=== PATIENT | female | born 1960 | race Caucasian/White ===

== ENCOUNTER → 2019-01-01 | Outpatient (CLI) | payer MEDICARE ==
--- NOTE | 2019-01-01 09:02 | Diagnostic Imaging Report ---
MRI RT UPPER EXT JOINT W/O Technique: Multiplanar, multisequence MR imaging of the right shoulder was performed without contrast. Comparison: None available. Indication: Right shoulder pain with recent fall. Findings: Rotator cuff: No rotator cuff tear. Mild tendinopathy of the supraspinatus is present. No rotator cuff muscle edema or atrophy. Glenoid labrum: There is abnormal linear signal extending within the superior labrum in an anterior to posterior direction suggesting a nondisplaced tear. No associated paralabral cyst. Long head of biceps: Long head of biceps is normally positioned within the bicipital groove. The intracapsular segment is intact. Bones and cartilage: Humeral head is normal in morphology without fracture or focal osseous lesion. No glenohumeral chondromalacia. The acromioclavicular joint is normal in alignment without significant degenerative change. Soft tissues: No glenohumeral joint effusion. No MRI findings to suggest adhesive capsulitis. No fluid or inflammatory like signal within the subacromial/subdeltoid space to indicate bursitis. IMPRESSION: 1. Probable nondisplaced superior labral (SLAP) tear. 2. No rotator cuff tear. Mild supraspinatus tendinopathy. 3. The long head of biceps is intact and the superior labral tear does not propagate into the intra-articular segment of the long head of biceps. Dictated by: Dictated on workstation # [id number]
== END ==
LOC: RAD 07:17
PROVIDERS: ATTEND Family Medicine
DX: S43.491A Other sprain of right shoulder joint, initial encounter (principal); W19.XXXA Unspecified fall, initial encounter
CPT/HCPCS: 73221

== ENCOUNTER → 2019-01-18 | Outpatient (CLI) | payer MEDICARE ==
[~2019-01-18] MED LIST: REGADENOSON 0.4 MG/5 ML SYR (LEXISCAN) IV ONE
[2019-01-18] MEDS: CATHETER FLUSH 10 ML SYR IV PRN ×2 (09:20→10:16)
[2019-01-18 10:14] VITALS: BP 147/81
--- NOTE | 2019-01-18 17:54 | STRESS TEST ---
DATE OF SERVICE: 01/18/2019 RESTING AND POST REGADENOSON TECHNETIUM-99M TETROFOSMIN SPECT CT IMAGING ORDERING PHYSICIAN: Teo Jackson MD, ELOISA, FACP, FACC. PRIMARY CARE PHYSICIAN: Kayla Peters MD. CLINICAL DIAGNOSES: Abnormal electrocardiogram, concentric left ventricular hypertrophy, tobacco use, and hyperlipidemia. Baseline images were carried out after injection of 10.3 mCi of technetium-99m Tetrofosmin. This was followed by 0.4 mg of regadenoson and 10.3 mCi technetium-99m Tetrofosmin for stress imaging. The electrocardiogram showed sinus rhythm with incomplete right bundle branch block. There was nonspecific T-wave abnormality. The electrocardiogram did not change significantly with regadenoson infusion. Review of images at rest and following stress does not indicate any significant perfusion defects consistent with significant myocardial ischemia or infarction. Gated images show normal global left ventricular systolic function with normal regional wall motion. Left ventricular ejection fraction is calculated to be 62%. Left ventricular end diastolic volume is 54 mL. TID is absent (1.04). CONCLUSIONS: 1. No evidence of any significant myocardial ischemia or infarction on this study. 2. Normal regional wall motion. 3. Normal global left ventricular systolic function with a calculated ejection fraction of 62%. Job ID: [id number] DocumentID: [id number] Dictated Date: 01/18/2019 14:55:22 Sales Support Manager Date: 01/18/2019 17:52:47 Dictated By: TEO JACKSON MD, ELOISA, FACP, FACC,
== END ==
LOC: CARD 08:22
PROVIDERS: ATTEND Internal Medicine Cardiovascular Disease
DX: R94.31 Abnormal electrocardiogram [ECG] [EKG] (principal); I51.7 Cardiomegaly; E78.5 Hyperlipidemia, unspecified; Z72.0 Tobacco use
CPT/HCPCS: 78452; 93017

== ENCOUNTER 2019-02-21 19:35 | Emergency (ER) | payer MEDICARE ==
[~2019-02-21] VITALS: Ht 157.5 cm; Wt 59.0 kg
--- OUTSIDE RECORDS SUMMARY | 2019-02-21 19:55 | XMS REPORT | CCD ---
Author Author [facility] Organization [facility] Address [address] [place] [address] Phone Care Team Providers Care Sba Underwriter Name Role Phone PP Unavailable CCM Unavailable Summary Purpose Interface Exchange Insurance Providers Payer name Policy type / Coverage type Covered libertarian ID Effective Begin Date Effective End Date WPS Medicare Part B Medicare Part B [id number] Unknown Unknown Family history Mother Diagnosis Age At Onset Cancer Unknown Son Diagnosis Age At Onset Asthma Unknown Brother Diagnosis Age At Onset Depression Unknown Social History Social History Element Codes Description Effective Dates Marital status Unknown Single 12/24/[address]: 1562320 Former smoker 12/24/[address]: 501321727 Never drinks alcohol 12/24/2018 Allergies, Adverse Reactions, Alerts Substance Reaction Codes Entered Date Inactivated Date Status NO KNOWN DRUG ALLERGIES Unknown 12/24/2018 No Inactive Date Active Past Medical History Illness Codes Condition Status Onset Date Resolved Date Encounter for general adult medical examination with abnormal findings ICD-9: V70.0 ICD-10: Z00.01 Active 12/24/2018 Unknown Headache ICD-9: 784.0 ICD-10: R51 Active 12/24/2018 Unknown Impingement syndrome of right shoulder ICD-9: 726.10 ICD-10: M75.41 Active 12/24/2018 Unknown Pain in right shoulder ICD-9: 719.41 ICD-10: M25.511 Active 12/24/2018 Unknown Slow transit constipation ICD-9: 564.01 ICD-10: K59.01 Active 12/24/2018 Unknown Problems Condition Codes Effective Dates Condition Status Encounter for general adult medical examination with abnormal findings ICD-9: V70.0 ICD-10: Z00.01 12/24/2018 Active Headache ICD-9: 784.0 ICD-10: R51 12/24/2018 Active Impingement syndrome of right shoulder ICD-9: 726.10 ICD-10: M75.41 12/24/2018 Active Pain in right shoulder ICD-9: 719.41 ICD-10: M25.511 12/24/2018 Active Slow transit constipation ICD-9: 564.01 ICD-10: K59.01 12/24/2018 Active Medications Medication Codes Instructions Start Date Stop Date Status Fill Instructions cyclobenzaprine 5 mg tablet RxNorm: 213405 1/2 Tablet(s) PO TID as needed muscle spasms of neck 01/28/2019 02/26/2019 Active ibuprofen 800 mg tablet RxNorm: 926637 1 Tablet(s) PO TID 12/24/2018 02/21/2019 Active cyclobenzaprine 5 mg tablet RxNorm: 605502 1/2 Tablet(s) PO TID as needed muscle spasms of neck 12/24/2018 01/22/2019 Inactive topiramate 50 mg tablet RxNorm: 183500 1 Tablet(s) PO daily No Start Date Active amlodipine 2.5 mg tablet RxNorm: 086405 1 Tablet(s) PO daily No Start Date Active gabapentin 300 mg capsule RxNorm: 663939 1 Capsule(s) PO daily No Start Date Active Imitrex 25 mg tablet RxNorm: 538499 Tablet(s) PO as needed No Start Date Active Medication Administered No Medication Administered data Immunizations Vaccine Codes Date Status Pneumococcal (Adult) CVX: 33 02/18/2018 completed Assessments Condition Codes Effective Dates Impingement syndrome of right shoulder ICD-10: M75.41 ICD-9: 726.10 12/24/2018 Encounter for general adult medical examination with abnormal findings ICD-10: Z00.01 ICD-9: V70.0 12/24/2018 Headache ICD-10: R51 ICD-9: 784.0 12/24/2018 Slow transit constipation ICD-10: K59.01 ICD-9: 564.01 12/24/2018 Pain in right shoulder ICD-10: M25.511 ICD-9: 719.41 12/24/2018 Reason For Visit Reason For Visit Effective Dates Notes headache 12/24/2018 Results No Results data Review of Systems System Result Effective Dates Constitutional No recent illness 12/24/2018 Constitutional No chills 12/24/2018 Constitutional fatigue 12/24/2018 Constitutional No fever 12/24/2018 Constitutional No insomnia 12/24/2018 Constitutional No malaise 12/24/2018 Eyes No vision change 12/24/2018 Ears/Nose/Throat/Neck No dental pain 12/24/2018 Ears/Nose/Throat/Neck No dizziness 12/24/2018 Ears/Nose/Throat/Neck No dysphagia 12/24/2018 Ears/Nose/Throat/Neck No headache 12/24/2018 Ears/Nose/Throat/Neck No hearing loss 12/24/2018 Ears/Nose/Throat/Neck No nasal allergies 12/24/2018 Ears/Nose/Throat/Neck No sore throat 12/24/2018 Ears/Nose/Throat/Neck No postnasal drip 12/24/2018 Ears/Nose/Throat/Neck No sinus congestion 12/24/2018 Cardiovascular No chest pain/pressure 12/24/2018 Cardiovascular No dyspnea 12/24/2018 Cardiovascular No edema 12/24/2018 Cardiovascular No exercise intolerance 12/24/2018 Cardiovascular fatigue 12/24/2018 Cardiovascular No near-syncope/dizziness 12/24/2018 Respiratory No chest tightness 12/24/2018 Respiratory No cough 12/24/2018 Respiratory No dyspnea 12/24/2018 Respiratory No pedal edema 12/24/2018 Gastrointestinal No abdominal pain 12/24/2018 Gastrointestinal constipation 12/24/2018 Gastrointestinal No diarrhea 12/24/2018 Gastrointestinal No gastroesophageal reflux 12/24/2018 Gastrointestinal No nausea 12/24/2018 Gastrointestinal No vomiting 12/24/2018 Genitourinary/Nephrology No dysuria 12/24/2018 Genitourinary/Nephrology No nocturia 12/24/2018 Genitourinary/Nephrology No urinary incontinence 12/24/2018 Musculoskeletal stiffness 12/24/2018 Musculoskeletal No swelling 12/24/2018 Musculoskeletal muscle weakness 12/24/2018 Musculoskeletal No myalgias 12/24/2018 Dermatologic No rash 12/24/2018 Dermatologic No sores 12/24/2018 Neurologic No dizziness 12/24/2018 Neurologic headache 12/24/2018 Neurologic neck pain 12/24/2018 Neurologic No syncope 12/24/2018 Psychiatric No anxiety 12/24/2018 Psychiatric No depression 12/24/2018 Musculoskeletal neck pain 12/24/2018 Physical Exam Exam Name System Name Item Name Status Result Effective Dates Notes Full Exam - General 1994 Constitutional general appearance Development: well developed 12/24/2018 None Full Exam - General 1994 Constitutional general appearance Development: appears stated age 0512/24/2018 None Full Exam - General 1994 Constitutional general appearance Hygiene/Attention to Grooming: good hygiene 12/24/2018 None Full Exam - General 1994 Eyes conjunctiva/eyelids Overall: conjunctiva clear 12/24/2018 None Full Exam - General 1994 Eyes conjunctiva/eyelids Overall: cornea clear 12/24/2018 None Full Exam - General 1994 Eyes conjunctiva/eyelids Overall: eyelids normal 12/24/2018 None Full Exam - General 1994 Eyes pupils and irises Overall: pupils equal, round, reactive to light and accomodation 12/24/2018 None Full Exam - General 1994 Ears/Nose/Throat otoscopic exam Overall: external auditory canals clear 12/24/2018 None Full Exam - General 1994 Ears/Nose/Throat otoscopic exam Overall: tympanic membranes clear 12/24/2018 None Full Exam - General 1994 Ears/Nose/Throat lips/teeth/gingiva Overall: benign lips 12/24/2018 None Full Exam - General 1994 Ears/Nose/Throat lips/teeth/gingiva Overall: normal dentition 12/24/2018 None Full Exam - General 1994 Ears/Nose/Throat oral cavity/pharynx/larynx Overall: oral mucosa clear 12/24/2018 None Full Exam - General 1994 Ears/Nose/Throat oral cavity/pharynx/larynx Overall: oropharyngeal mucosa clear 12/24/2018 None Full Exam - General 1994 Ears/Nose/Throat oral cavity/pharynx/larynx Overall: hypopharynx benign 12/24/2018 None Full Exam - General 1994 Ears/Nose/Throat oral cavity/pharynx/larynx Overall: no masses 12/24/2018 None Full Exam - General 1994 Respiratory auscultation Overall: breath sounds clear bilaterally 12/24/2018 None Full Exam - General 1994 Respiratory respiratory effort/rhythm Overall: no retractions 12/24/2018 None Full Exam - General 1994 Respiratory respiratory effort/rhythm Overall: normal rate 12/24/2018 None Full Exam - General 1994 Cardiovascular extremities Overall: no clubbing 12/24/2018 None Full Exam - General 1994 Cardiovascular auscultation of heart Overall: regular rate 12/24/2018 None Full Exam - General 1994 Cardiovascular auscultation of heart Overall: normal heart sounds 12/24/2018 None Full Exam - General 1994 Abdomen abdominal exam Overall: no tenderness 12/24/2018 None Full Exam - General 1994 Abdomen abdominal exam Overall: normal bowel sounds 12/24/2018 None Full Exam - General 1994 Lymphatic neck nodes Overall: anterior cervical chain benign 12/24/2018 None Full Exam - General 1994 Lymphatic neck nodes Overall: posterior cervical chain benign 12/24/2018 None Full Exam - General 1994 Musculoskeletal spine, ribs and pelvis Overall: spine benign 12/24/2018 None Full Exam - General 1994 Musculoskeletal spine, ribs and pelvis Overall: sacroiliac joint benign 12/24/2018 None Full Exam - General 1994 Musculoskeletal spine, ribs and pelvis Overall: good posture 12/24/2018 None Full Exam - General 1994 Musculoskeletal head and neck Overall: head atraumatic 12/24/2018 None Full Exam - General 1994 Musculoskeletal head and neck Overall: cervical spine benign 12/24/2018 None Full Exam - General 1994 Integument inspection of skin Overall: few scattered moles, no gross abnormalities 12/24/2018 None Full Exam - General 1994 Neurologic deep tendon reflexes Overall: deep tendon reflexes intact 12/24/2018 None Full Exam - General 1994 Neurologic cranial nerves Overall: crainial nerves 2 - 12 grossly intact 12/24/2018 None Full Exam - General 1994 Psychiatric orientation/consciousness Overall: oriented to person, place and time 12/24/2018 None Full Exam - General 1994 Psychiatric mood and affect Overall: normal mood and affect 12/24/2018 None Full Exam - General 1994 Musculoskeletal upper extremity Overall: normal shoulder 12/24/2018 None Full Exam - General 1994 Musculoskeletal upper extremity Overall: normal elbow 12/24/2018 None Full Exam - General 1994 Musculoskeletal upper extremity Overall: normal wrist 12/24/2018 None Full Exam - General 1994 Musculoskeletal upper extremity Overall: full strength in LUE 12/24/2018 None Full Exam - General 1994 Musculoskeletal upper extremity Palpation - shoulder: tenderness @ bicipital groove 12/24/2018 None Full Exam - General 1994 Musculoskeletal upper extremity Palpation - shoulder: pain with resisted abduction 12/24/2018 None Full Exam - General 1994 Musculoskeletal upper extremity Palpation - shoulder: pain with resisted internal rotation 12/24/2018 None Full Exam - General 1994 Musculoskeletal upper extremity Palpation - shoulder: pain with resisted external rotation 12/24/2018 None Full Exam - General 1994 Musculoskeletal upper extremity Palpation - shoulder: positive supraspinatus test 12/24/2018 None Full Exam - General 1994 Musculoskeletal upper extremity Palpation - shoulder: acromioclavicular joint tenderness 12/24/2018 None Procedures No Procedures data Vital Signs Date Vital 12/24/2018 Blood Pressure 1: 144/90 Code: 8480-6 BMI: 28.9 Code: 70515-5 Heart Rate 1: 73 bpm Height: 5' SpO2: 97% Weight: 148 lbs Functional Status No Functional Status data History of Present Illness Symptom Name Status Result Effective Date Notes Quality constant 12/24/2018 None Onset and Resolution ongoing 12/24/2018 None Quality acute 12/24/2018 None Onset and Resolution ongoing 12/24/2018 None Triggers no known associated factors 12/24/2018 None Pertinent Findings bloating 12/24/2018 None Onset of Symptom months ago 12/24/2018 after a fall Triggers trauma 12/24/2018 None Frequency of Episodes daily 12/24/2018 None Triggers no known associated factors 12/24/2018 None Advance Directives No Advance Directive data Encounters Encounter Performer Location Codes Date () OFFICE/OUTPATIENT VISIT NEW Diagnosis: Encounter for general adult medical examination with abnormal findings[ICD10: Z00.01] Diagnosis: Pain in right shoulder[ICD10: M25.511] Diagnosis: Impingement syndrome of right shoulder[ICD10: M75.41] Diagnosis: Headache[ICD10: R51] Diagnosis: Slow transit constipation[ICD10: K59.01] [facility] CPT-4: 03784 12/24/2018 Plan of Care Planned Activity Notes Codes Status Date Appointment: [facility] WPtel: [address] [place], [place] [id number] (15 min) Moderate 01/08/2019 Visit Plan: Hx of chronic headaches - doubt that Gabapentin is helping - therefore taper off as follows: change the gabapentin to 300mg every other day x 5 doses then stop. continue with topamax at this time. Const ipation - Power Pudding: equal parts of prune juice, bran flakes, apple sauce - mix together, and take 1-2 tablespoons up to three times daily. The mixture will stay good in the fridge for 10 days. Neck pain/spasms of muscles - cyclobenzaprine - muscle relaxer to take for neck spasms. Right shoulder pain - suspect Right rotator cuff tear - I have advised continued use of ibuprofen - and We will get her scheduled for an MRI of her right shoulder. 12/24/2018 Patient Education: Patient Medication Summary Completed 12/24/2018 Instructions Comment change the gabapentin to 300mg every other day x 5 doses then stop Power Pudding: equal parts of prune juice, bran flakes, apple sauce - mix together, and take 1-2 tablespoons up to three times daily. The mixture will stay good in the fridge for 10 days. cyclobenzaprine - muscle relaxer to take for neck spasms we will order an MRI of your shoulder . Hx of chronic headaches - doubt that Gabapentin is helping - therefore taper off as follows: change the gabapentin to 300mg every other day x 5 doses then stop. continue with topamax at this time. Constipation - Power Pudding: equal parts of prune juice, bran flakes, apple sauce - mix together, and take 1-2 tablespoons up to three times daily. The mixture will stay good in the fridge for 10 days. Neck pain/spasms of muscles - cyclobenzaprine - muscle relaxer to take for neck spasms. Right shoulder pain - suspect Right rotator cuff tear - I have advised continued use of ibuprofen - and We will get her scheduled for an MRI of her right shoulder.
--- OUTSIDE RECORDS SUMMARY | 2019-02-21 19:55 | XMS REPORT | CCD ---
Author Author Kayla Peters Organization [facility] Address [address] [place] [address] Phone Care Team Providers Care Casino Attendant Name Role Phone PP Unavailable CCM Unavailable Summary Purpose Interface Exchange Insurance Providers Payer name Policy type / Coverage type Covered constitution party ID Effective Begin Date Effective End Date WPS Medicare Part B Medicare Part B [id number] Unknown Unknown Family history Mother Diagnosis Age At Onset Cancer Unknown Son Diagnosis Age At Onset Asthma Unknown Brother Diagnosis Age At Onset Depression Unknown Social History Social History Element Codes Description Effective Dates Marital status Unknown Single 12/24/[address]: 1970837 Former smoker 12/24/[address]: 541311550 Never drinks alcohol 12/24/2018 Allergies, Adverse Reactions, Alerts Substance Reaction Codes Entered Date Inactivated Date Status NO KNOWN DRUG ALLERGIES Unknown 12/24/2018 No Inactive Date Active Past Medical History Illness Codes Condition Status Onset Date Resolved Date Chronic migraine without aura, not intractable, without status migrainosus ICD-9: 346.70 ICD-10: G43.709 Active 02/18/2019 Unknown Encounter for gynecological examination (general) (routine) without abnormal findings ICD-9: V72.31 ICD-10: Z01.419 Active 02/18/2019 Unknown Encounter for removal of intrauterine contraceptive device ICD-9: V25.12 ICD-10: Z30.432 Active 02/18/2019 Unknown Essential (primary) hypertension ICD-9: 401.1 ICD-10: I10 Active 02/18/2019 Unknown Encounter for general adult medical examination with [...] Problems Condition Codes Effective Dates Condition Status Chronic migraine without aura, not intractable, without status migrainosus ICD-9: 346.70 ICD-10: G43.709 02/18/2019 Active Encounter for gynecological examination (general) (routine) without abnormal findings ICD-9: V72.31 ICD-10: Z01.419 02/18/2019 Active Encounter for removal of intrauterine contraceptive device ICD-9: V25.12 ICD-10: Z30.432 02/18/2019 Active Essential (primary) hypertension ICD-9: 401.1 ICD-10: I10 02/18/2019 Active Encounter for general adult medical examination with abnormal findings ICD-9: V70.0 ICD-10: Z00.01 12/24/2018 Active Headache ICD-9: 784.0 ICD-10: R51 12/24/2018 Active Impingement syndrome of right shoulder ICD-9: 726.10 ICD-10: M75.41 12/24/2018 Active Pain in right shoulder ICD-9: 719.41 ICD-10: M25.511 12/24/2018 Active Slow transit constipation ICD-9: 564.01 ICD-10: K59.01 12/24/2018 Active Medications Medication Codes Instructions Start Date Stop Date Status Fill Instructions amlodipine 2.5 mg tablet RxNorm: 355838 1 Tablet(s) PO BID 02/18/2019 09/15/2019 Active cyclobenzaprine 5 mg tablet RxNorm: 111080 1/2 Tablet(s) PO TID as needed muscle spasms of neck 01/28/2019 02/26/2019 Active ibuprofen 800 mg tablet RxNorm: 071620 1 Tablet(s) PO TID 12/24/2018 02/21/2019 Active cyclobenzaprine 5 mg tablet RxNorm: 788643 1/2 Tablet(s) PO TID as needed muscle spasms of neck 12/24/2018 01/22/2019 Inactive topiramate 50 mg tablet RxNorm: 895317 1 Tablet(s) PO daily No Start Date Active gabapentin 300 mg capsule RxNorm: 524175 1 Capsule(s) PO daily No Start Date Active Imitrex 25 mg tablet RxNorm: 645220 Tablet(s) PO as needed No Start Date Active amlodipine 2.5 mg tablet RxNorm: 556788 1 Tablet(s) PO daily No Start Date 02/17/2019 Inactive Medication Administered No Medication Administered data Immunizations Vaccine Codes Date Status Pneumococcal (Adult) CVX: 33 02/18/2018 completed Assessments Condition Codes Effective Dates Encounter for removal of intrauterine contraceptive device ICD- 10: Z30.432 ICD-9: V25.12 02/18/2019 Chronic migraine without aura, not intractable, without status migrainosus ICD-10: G43.709 ICD-9: 346.70 02/18/2019 Encounter for gynecological examination (general) (routine) without abnormal findings ICD-10: Z01.419 ICD-9: V72.31 02/18/2019 Essential (primary) hypertension ICD-10: I10 ICD-9: 401.1 02/18/2019 Impingement syndrome of right shoulder ICD-10: M75.41 ICD-9: 726.10 12/24/2018 Encounter for general adult medical examination with abnormal findings ICD-10: Z00.01 ICD-9: V70.0 12/24/2018 Headache ICD-10: R51 ICD-9: 784.0 12/24/2018 Slow transit constipation ICD-10: K59.01 ICD-9: 564.01 12/24/2018 Pain in right shoulder ICD-10: M25.511 ICD-9: 719.41 12/24/2018 Reason For Visit Reason For Visit Effective Dates Notes dizziness 02/18/2019 headache 12/24/2018 Results No Results data Review of Systems System Result Effective Dates Constitutional No recent illness 02/18/2019 Constitutional No chills 02/18/2019 Constitutional fatigue 02/18/2019 Constitutional No fever 02/18/2019 Constitutional No insomnia 02/18/2019 Constitutional No malaise 02/18/2019 Eyes No vision change 02/18/2019 Ears/Nose/Throat/Neck No dental pain 02/18/2019 Ears/Nose/Throat/Neck No dizziness 02/18/2019 Ears/Nose/Throat/Neck No dysphagia 02/18/2019 Ears/Nose/Throat/Neck No headache 02/18/2019 Ears/Nose/Throat/Neck No hearing loss 02/18/2019 Ears/Nose/Throat/Neck No nasal allergies 02/18/2019 Ears/Nose/Throat/Neck No sore throat 02/18/2019 Ears/Nose/Throat/Neck No postnasal drip 02/18/2019 Ears/Nose/Throat/Neck No sinus congestion 02/18/2019 Cardiovascular No chest pain/pressure 02/18/2019 Cardiovascular No dyspnea 02/18/2019 Cardiovascular No edema 02/18/2019 Cardiovascular No exercise intolerance 02/18/2019 Cardiovascular fatigue 02/18/2019 Cardiovascular No near-syncope/dizziness 02/18/2019 Respiratory No chest tightness 02/18/2019 Respiratory No cough 02/18/2019 Respiratory No dyspnea 02/18/2019 Respiratory No pedal edema 02/18/2019 Gastrointestinal No abdominal pain 02/18/2019 Gastrointestinal constipation 02/18/2019 Gastrointestinal No diarrhea 02/18/2019 Gastrointestinal No gastroesophageal reflux 02/18/2019 Gastrointestinal No nausea 02/18/2019 Gastrointestinal No vomiting 02/18/2019 Genitourinary/Nephrology No dysuria 02/18/2019 Genitourinary/Nephrology No nocturia 02/18/2019 Genitourinary/Nephrology No urinary incontinence 02/18/2019 Musculoskeletal No swelling 02/18/2019 Musculoskeletal No myalgias 02/18/2019 Dermatologic No rash 02/18/2019 Dermatologic No sores 02/18/2019 Neurologic No dizziness 02/18/2019 Neurologic headache 02/18/2019 Neurologic neck pain 02/18/2019 Neurologic No syncope 02/18/2019 Psychiatric No anxiety 02/18/2019 Psychiatric No depression 02/18/2019 Musculoskeletal neck pain 02/18/2019 Constitutional No recent illness 12/24/2018 Constitutional No [...] 1994 Constitutional general appearance Development: well developed 02/18/2019 None Full Exam - General 1994 Constitutional general appearance Development: appears stated age 0702/18/2019 None Full Exam - General 1994 Constitutional general appearance Hygiene/Attention to Grooming: good hygiene 02/18/2019 None Full Exam - General 1994 Eyes conjunctiva/eyelids Overall: conjunctiva clear 02/18/2019 None Full Exam - General 1994 Eyes conjunctiva/eyelids Overall: cornea clear 02/18/2019 None Full Exam - General 1994 Eyes conjunctiva/eyelids Overall: eyelids normal 02/18/2019 None Full Exam - General 1994 Eyes pupils and irises Overall: pupils equal, round, reactive to light and accomodation 02/18/2019 None Full Exam - General 1994 Ears/Nose/Throat otoscopic exam Overall: external auditory canals clear 02/18/2019 None Full Exam - General 1994 Ears/Nose/Throat otoscopic exam Overall: tympanic membranes clear 02/18/2019 None Full Exam - General 1995 Ears/Nose/Throat lips/teeth/gingiva Overall: benign lips 02/18/2019 None Full Exam - General 1995 Ears/Nose/Throat lips/teeth/gingiva Overall: normal dentition 02/18/2019 None Full Exam - General 1995 Ears/Nose/Throat oral cavity/pharynx/larynx Overall: oral mucosa clear 02/18/2019 None Full Exam - General 1995 Ears/Nose/Throat oral cavity/pharynx/larynx Overall: oropharyngeal mucosa clear 02/18/2019 None Full Exam - General 1994 Ears/Nose/Throat oral cavity/pharynx/larynx Overall: hypopharynx benign 02/18/2019 None Full Exam - General 1994 Ears/Nose/Throat oral cavity/pharynx/larynx Overall: no masses 02/18/2019 None Full Exam - General 1994 Respiratory auscultation Overall: breath sounds clear bilaterally 02/18/2019 None Full Exam - General 1994 Respiratory respiratory effort/rhythm Overall: no retractions 02/18/2019 None Full Exam - General 1994 Respiratory respiratory effort/rhythm Overall: normal rate 02/18/2019 None Full Exam - General 1994 Cardiovascular extremities Overall: no clubbing 02/18/2019 None Full Exam - General 1994 Cardiovascular auscultation of heart Overall: regular rate 02/18/2019 None Full Exam - General 1994 Cardiovascular auscultation of heart Overall: normal heart sounds 02/18/2019 None Full Exam - General 1994 Abdomen abdominal exam Overall: no tenderness 02/18/2019 None Full Exam - General 1994 Abdomen abdominal exam Overall: normal bowel sounds 02/18/2019 None Full Exam - General 1994 Lymphatic neck nodes Overall: anterior cervical chain benign 02/18/2019 None Full Exam - General 1994 Lymphatic neck nodes Overall: posterior cervical chain benign 02/18/2019 None Full Exam - General 1994 Musculoskeletal spine, ribs and pelvis Overall: spine benign 02/18/2019 None Full Exam - General 1994 Musculoskeletal spine, ribs and pelvis Overall: sacroiliac joint benign 02/18/2019 None Full Exam - General 1994 Musculoskeletal spine, ribs and pelvis Overall: good posture 02/18/2019 None Full Exam - General 1994 Musculoskeletal head and neck Overall: head atraumatic 02/18/2019 None Full Exam - General 1994 Musculoskeletal head and neck Overall: cervical spine benign 02/18/2019 None Full Exam - General 1994 Integument inspection of skin Overall: few scattered moles, no gross abnormalities 02/18/2019 None Full Exam - General 1994 Neurologic deep tendon reflexes Overall: deep tendon reflexes intact 02/18/2019 None Full Exam - General 1994 Neurologic cranial nerves Overall: crainial nerves 2 - 12 grossly intact 02/18/2019 None Full Exam - General 1994 Psychiatric orientation/consciousness Overall: oriented to person, place and time 02/18/2019 None Full Exam - General 1994 Psychiatric mood and affect Overall: normal mood and affect 02/18/2019 None Full Exam - General 1994 Constitutional [...] shoulder: acromioclavicular joint tenderness 12/24/2018 None Procedures Procedure Codes Date REMOVE INTRAUTERINE DEVICE CPT-4: 36381 02/18/2019 Vital Signs Date Vital 02/18/2019 Blood Pressure 1: 146/86 Code: 8480-6 BMI: 27.5 Code: 46447-6 Heart Rate 1: 75 bpm Height: 5' SpO2: 97% Weight: 141 lbs 12/24/2018 Blood Pressure 1: 144/90 Code: 8480-6 BMI: 28.9 Code: 76205-4 Heart Rate 1: 73 bpm Height: 5' SpO2: 97% Weight: 148 lbs Functional Status No Functional Status data History of Present Illness Symptom Name Status Result Effective Date Notes Quality acute 02/18/2019 None Quality intermittent 02/18/2019 None Onset and Resolution ongoing 02/18/2019 None Onset of Symptom 1 months ago 02/18/2019 None Triggers head turning 02/18/2019 None Pertinent Findings problems with coordination 02/18/2019 None Quality constant 12/24/2018 None Onset and Resolution [...] data Encounters Encounter Performer Location Codes Date ([id number]) 93802 EST. PATIENT, LEVEL IV Diagnosis: Encounter for gynecological examination (general) (routine) without abnormal findings[ICD10: Z01.419] Diagnosis: Essential (primary) hypertension[ICD10: I10] Diagnosis: Encounter for removal of intrauterine contraceptive device[ICD10: Z30.432] Diagnosis: Chronic migraine without aura, not intractable, without status migrainosus[ICD10: G43.709] Kayla Peters MD, [facility] CPT-4: 45077 02/18/2019 ([id number]) OFFICE/OUTPATIENT VISIT NEW Diagnosis: Encounter for general adult medical examination with abnormal findings[ICD10: Z00.01] Diagnosis: Pain in right shoulder[ICD10: M25.511] Diagnosis: Impingement syndrome of right shoulder[ICD10: M75.41] Diagnosis: Headache[ICD10: R51] Diagnosis: Slow transit constipation[ICD10: K59.01] [facility] CPT-4: 46795 12/24/2018 Plan of Care Planned Activity Notes Codes Status Date Visit Plan: Hypertension - uncontrolled - the patient's medications have been modified as documented in the visit note. The patient has been counseled to cut back on salt in diet for a no added salt diet, low fat diet, start an exercise program with low weight bearing exercises and higher aerobic activity for heart health. The patient is to check blood pressure readings as an outpatient and either fax, call, or email the readings to the office next week for practitioner to review. The pt is to call for acute concerns. increase the amlodipine to 2.5mg twice daily Chronic Migraines - gabapentin was attempted to be tapered off, but she did not tolerate the taper. Continue with topamax and gabapentin - referral to Dr. Ramos for Botox for Migraines. Removal of IUD today - pt has had this in place for over 10 years - Well Adult Female - exam completed. Pap and breast exam completed. Pt will be called with results of her testing. She was advised to continue with yearly annual exams. Safe sex practices discussed during office visit today. Call if any abnormal gynecologic issues during the next year, otherwise, RTC yearly or prn. 02/18/2019 Patient Education: Patient Medication Summary Completed 02/18/2019 Care Plan: PAP 2 Pending 02/18/2019 [facility] [phone] [id number] [place] (15 min) Moderate 02/05/2019 [facility] [phone] [phone] [place] (15 min) Moderate 01/08/2019 Visit Plan: Hx [...] Patient Medication Summary Completed 12/24/2018 Instructions Comment increase the amlodipine to 2.5mg twice daily we will call you with the information about an appt with dr. ramos for a referral for migraines and botox injections . Hypertension - uncontrolled - the patient's medications have been modified as documented in the visit note. The patient has been counseled to cut back on salt in diet for a no added salt diet, low fat diet, start an exercise program with low weight bearing exercises and higher aerobic activity for heart health. The patient is to check blood pressure readings as an outpatient and either fax, call, or email the readings to the office next week for practitioner to review. The pt is to call for acute concerns. increase the amlodipine to 2.5mg twice daily Chronic Migraines - gabapentin was attempted to be tapered off, but she did not tolerate the taper. Continue with topamax and gabapentin - referral to Dr. Ramos for Botox for Migraines. Removal of IUD today - pt has had this in place for over 10 years - Well Adult Female - exam completed. Pap and breast exam completed. Pt will be called with results of her testing. She was advised to continue with yearly annual exams. Safe sex practices discussed during office visit today. Call if any abnormal gynecologic issues during the next year, otherwise, RTC yearly or prn. change the gabapentin to 300mg every other [...]
--- OUTSIDE RECORDS SUMMARY | 2019-02-21 19:56 | XMS REPORT | Continuity of Care Document ---
Author Organization Unknown Address Unknown Allergies Active Description Code Type Severity Reaction Onset Reported/Identified Relationship to Patient Clinical Status Yes No Allergy Information Available [id number] Drug Allergy Unknown N/A 01/18/2019 Medications There is no data. Problems Date Dx Coded Attending Type Code Diagnosis Diagnosed By 01/02/2019 AQUILINO BRUCE MD Ot S43.491A OTHER SPRAIN OF RIGHT SHOULDER JOINT, IN 01/02/2019 AQUILINO BRUCE MD Ot W19.XXXA UNSPECIFIED FALL, INITIAL ENCOUNTER 01/22/2019 AQUILINO BRUCE MD Ot S43.491A OTHER SPRAIN OF RIGHT SHOULDER JOINT, IN 01/22/2019 AQUILINO BRUCE MD Ot W19.XXXA UNSPECIFIED FALL, INITIAL ENCOUNTER 01/22/2019 JENNY BUNCH FACC, CONSTANTINE FACP CCDS Ot E78.5 HYPERLIPIDEMIA, UNSPECIFIED 01/22/2019 JENNY BUNCH FACC, CONSTANTINE FACP CCDS Ot I51.7 CARDIOMEGALY 01/22/2019 JENNY BUNCH FACC, CONSTANTINE FACP CCDS Ot R94.31 ABNORMAL ELECTROCARDIOGRAM [ECG] [EKG] 01/22/2019 JENNY BUNCH FACC, CONSTANTINE FACP CCDS Ot Z72.0 TOBACCO USE 02/08/2019 JENNY BUNCH FACC, CONSTANTINE FACP CCDS Ot E78.5 HYPERLIPIDEMIA, UNSPECIFIED 02/08/2019 JENNY BUNCH FACC, ALI FACP CCDS Ot I51.7 CARDIOMEGALY 02/08/2019 JENNY BUNCH FACC, CONSTANTINE FACP CCDS Ot R94.31 ABNORMAL ELECTROCARDIOGRAM [ECG] [EKG] 02/08/2019 JENNY BUNCH FACC, CONSTANTINE FACP CCDS Ot Z72.0 TOBACCO USE Procedures There is no data. Results There is no data. Encounters ACCT No. Visit Date/Time Discharge Status Pt. Type Provider Facility Loc./Unit Complaint [id number] 12/06/2018 12:52:58 12/06/2018 23:59:59 CLS Outpatient [id number] 01/18/2019 08:22:00 01/18/2019 23:59:59 CLS Outpatient JENNY BUNCH FACC, CONSTANTINE HAIRSTON CCDS [facility] CARD ABN EKG [id number] 01/01/2019 07:17:00 01/01/2019 23:59:59 CLS Outpatient JANIS BUNCH, AQUILINO Jensen [facility] MAE Nickerson ROTATOR CUFF TEAR
--- OUTSIDE RECORDS SUMMARY | 2019-02-21 19:56 | XMS REPORT | CCD ---
Author Author Kayla Peters Organization [facility] Address [address] [place] [address] Phone Care Team Providers Care Business Information Consultant Name Role Phone PP Unavailable CCM Unavailable Summary Purpose Interface Exchange Insurance Providers Payer name Policy type / Coverage type Covered alliance party ID Effective Begin Date Effective End Date WPS Medicare Part B Medicare Part B [id number] Unknown Unknown Family history Mother Diagnosis Age At Onset Cancer Unknown Son Diagnosis Age At Onset Asthma Unknown Brother Diagnosis Age At Onset Depression Unknown Social History Social History Element Codes Description Effective Dates Marital status Unknown Single 12/24/[address]: 7776986 Former smoker 12/24/[address]: 788833426 Never drinks alcohol 12/24/2018 Allergies, Adverse Reactions, [...] Start Date Stop Date Status Fill Instructions ibuprofen 800 mg tablet RxNorm: 635663 1 Tablet(s) PO TID 12/24/2018 02/21/2019 Active cyclobenzaprine 5 mg tablet RxNorm: 494686 1/2 Tablet(s) PO TID as needed muscle spasms of neck 12/24/2018 01/22/2019 Active topiramate 50 mg tablet RxNorm: 959482 1 Tablet(s) PO daily No Start Date Active amlodipine 2.5 mg tablet RxNorm: 211327 1 Tablet(s) PO daily No Start Date Active gabapentin 300 mg capsule RxNorm: 104598 1 Capsule(s) PO daily No Start Date Active Imitrex 25 mg tablet RxNorm: 284345 Tablet(s) PO as needed No Start Date [...] 1: 144/90 Code: 8480-6 BMI: 28.9 Code: 70234-4 Heart Rate 1: 73 bpm Height: 5' [...] constipation[ICD10: K59.01] [facility] CPT-4: 55087 12/24/2018 Plan of Care Planned Activity Notes Codes Status Date Visit Plan: Hx of chronic headaches - [...]
--- NOTE | 2019-02-21 20:25 | ED Headache ---
General Chief Complaint: Head/Cervical Problems Stated Complaint: MIGRAINE HEADACHE History of Present Illness Date Seen by Provider: Feb 21, 2019 Time Seen by Provider: 20:16 Initial Comments The patient presents to ER by private conveyance with her friend and chief complaint that she is having a migraine headache for the past week. She did try Imitrex but it was not working. She follow up with her primary care doctor 3-4 days ago at the beginning of the week and was having some dizziness which was described as benign paroxysmal positional vertigo and was told to go back to physical therapy to do some Chang maneuvers teaching. She was doing the Chang's maneuver but she has a very hard time doing it because of her her right arm. She did have a fall and for a muscle which had to be surgically repaired by Dr. Sorto and is still in a sling. She does not use opiates. She has used 400 mg of ibuprofen this morning. She does not use Flonase or any nasal steroids. No diabetes fevers chills cough but she does have nausea. She took some Zofran earlier today but vomited it up immediately. She describes her headache as throbbing, bilateral radiating to her back of her head and typical for her. She has some soreness in her neck as well. Allergies and Home Medications Allergies Coded Allergies: No Allergy Information Available (Unverified , 01/18/19) Patient Home Medication List Home Medication List Reviewed: Yes Review of Systems Review of Systems Constitutional: No chills, No diaphoresis Eyes: Denies Blindness, Denies Blurred Vision, Denies Drainage Ears, Nose, Mouth, Throat: denies ear pain, denies ear discharge, denies epistaxis, denies mouth pain Respiratory: No cough, No hemoptysis Cardiovascular: No chest pain, No palpitations Gastrointestinal: No abdominal pain; nausea, vomiting Genitourinary: No discharge, No dysuria Musculoskeletal: No back pain, No joint pain Past Ombtfhn-Wupuqt-Uqbmfw Hx Patient Social History Alcohol Use: Denies Use Recreational Drug Use: No Smoking Status: Never a Smoker Recent Foreign Travel: No Contact w/Someone Who Travel: No Physical Exam Vital Signs Vital Signs - First Documented 02/21/19 19:54 Temp 97.5 Pulse 72 Resp 16 B/P (MAP) 153/109 (124) Pulse Ox 97 O2 Delivery Room Air Capillary Refill : Height, Weight, BMI Height: '" Weight: lbs. oz. kg; BMI Method: General Appearance: WD/WN, mild distress HEENT: PERRL/EOMI, normal ENT inspection, pharynx normal, other (bilateral TMs with moderate effusion but no erythema or opacity) Neck: full range of motion, supple, normal inspection, tender lateral (base of the neck) Cardiovascular: normal peripheral pulses, regular rate, rhythm, no edema Respiratory: lungs clear, normal breath sounds, no respiratory distress, no accessory muscle use Gastrointestinal: normal bowel sounds, non tender, soft, no organomegaly Extremities: non-tender, other (right arm in a sling) Psychiatric: alert, oriented x 3 Crainal Nerves: normal hearing, normal speech, PERRL Coordination/Gait: normal finger to nose, normal gait Motor/Sensory: no motor deficit, no sensory deficit, other (the patient cannot tolerate head impulse testing but she had negative nystagmus or test of skew) Skin: normal color, warm/dry Progress/Results/Core Measures Results/Orders My Orders Orders - ANGE KELLEY Iv Heplock-Insert (Order) (02/21/19 20:19) Ketorolac Injection (Toradol Injection) (02/21/19 20:30) Acetaminophen Tablet (Tylenol Tablet) (02/21/19 20:30) Ondansetron Injection (Zofran Injectio (02/21/19 20:30) Diphenhydramine Injection (Benadryl Inje (02/21/19 20:30) Prochlorperazine Injection (Compazine In (02/21/19 20:30) Methylprednisolone Acetate Inj (Depo-Med (02/21/19 20:30) Cyclobenzaprine Tablet (Flexeril Tablet) (02/21/19 20:30) Diphenhydramine Tablet (Benadryl Tablet) (02/21/19 21:00) Ketorolac Injection (Toradol Injection) (02/21/19 21:00) Ondansetron Oral Dissolve Tab (Zofran (02/21/19 20:51) Prochlorperazine Injection (Compazine In (02/21/19 21:00) Medications Given in ED Current Medications Medications Dose Ordered Sig/Kate Route Start Time Stop Time Status Last Admin Dose Admin Ketorolac Tromethamine 60 mg ONCE ONCE IM 02/21/19 21:00 02/21/19 21:01 DC 02/21/19 21:06 60 MG Methylprednisolone Acetate 40 mg ONCE ONCE IM 02/21/19 20:30 02/21/19 20:31 DC 02/21/19 21:08 40 MG Prochlorperazine Edisylate 10 mg ONCE ONCE IM 02/21/19 21:00 02/21/19 21:01 DC 02/21/19 21:10 10 MG Vital Signs/I&O 02/21/19 19:54 Temp 97.5 Pulse 72 Resp 16 B/P (MAP) 153/109 (124) Pulse Ox 97 O2 Delivery Room Air Progress Progress Note #1: Time: 20:29 Progress Note Discussed the importance and limitations of Apley's maneuvers and if she is unable to complete them or if they are not helpful then she may drive benefit from a tilt table. We have suggested she discuss this with her physical therapist and primary care doctor for referral as necessary. We have also suggested a nasal steroids such as Flonase for the next 1-2 weeks. For her migraine plan to give her Toradol, Tylenol, Benadryl, Compazine, Zofran, Depo-Medrol. We've turned the lights out and we'll give her a little time to rest on his medications. For her neck tenderness we have suggested a muscle relaxant and she would prefer to have one now. We have also suggested topical creams, heat, massage, chiropractor. Progress Note #2: Time: 20:56 Progress Note After 3 IV attempts the patient would prefer just to have the shots IM/subcutaneous. Progress Note #3: Time: 21:56 Progress Note Patient says her pain is much improved down to a 3 out of 10 from 8 out of 10. She still dizzy. Departure Impression Primary Impression: Migraine Qualified Codes: G43.001 - Migraine without aura, not intractable, with status migrainosus Additional Impressions: Labyrinthitis of right ear Vertigo Spasm of cervical paraspinous muscle Disposition: 01 HOME, SELF-CARE Condition: Improved Departure-Patient Inst. Decision time for Depature: 21:57 Referrals: AQUILINO BRUCE MD (PCP/Family) Primary Care Physician Patient Instructions: Migraine Headache (DC) Add. Discharge Instructions: For your headache I suggest you take a full 800 mg of ibuprofen every 8 hours as needed. You may accompany that with Tylenol 1000 g every 8 hours as needed. You might consider acupuncture for your migraines and sore neck as well. You may take one or 2 tablets of Zofran for nausea every 6 hours as needed. Your second choice for her nausea would be Phenergan 1 tablet every 6 hours as needed. Get some sleep. For your muscle sprain/strain of the neck I would suggest heat, topical creams such as Biofreeze, icy hot or creams with Capsaicin oil. Massage or visit with a chiropractor can be useful. You may also use the cyclobenzaprine 1 tablet every 8 hours as necessary for muscle spasms. For your vertigo I would suggest trying to do the Chnag maneuvers and if they do not help then you may follow-up with your primary doctor or the physical therapist and discuss tilt table maneuvers. Meclizine 1 tablet every 6 hours may also be beneficial to help reduce the dizziness. I would also suggest starting Flonase 1 puff each nostril once or twice a day for the next 1-2 weeks to see if that improves her dizziness. All discharge instructions reviewed with patient and/or family. Voiced unde rstanding. Scripts Cyclobenzaprine HCl (Cyclobenzaprine HCl) 10 Mg Tablet 10 MG PO Q8H PRN for SPASMS, #15 TAB 0 Refills Prov: ANGE KELLEY 02/21/19 Meclizine HCl (Meclizine HCl) 25 Mg Tablet 25 MG PO Q6H PRN for DIZZINESS, #15 TAB 0 Refills Prov: ANGE KELLEY 02/21/19 Promethazine HCl (Promethazine Tablet) 25 Mg Tablet 25 MG PO Q6H PRN for NAUSEA/VOMITING, #12 TAB 0 Refills Prov: ANGE KELLEY 02/21/19 Ondansetron (Ondansetron Odt) 4 Mg Tab.rapdis 4 MG PO Q6H PRN for NAUSEA/VOMITING, #8 TAB 0 Refills Prov: ANGE KELLEY 02/21/19 Work/School Note: Work Release Form Date Seen in the Emergency Department: Feb 21, 2019 Return to Work: Feb 25, 2019 Restrictions: No Restrictions ANGE KELLEY Feb 21, 2019 20:25
[2019-02-21] MEDS ORDERED: ONDANSETRON 4 MG/2 ML (SDV) Z0FRAN IVP ONE (20:30)
[2019-02-21] MEDS ORDERED: KETOROLAC 30 MG/ML VIAL IVP ONE (20:30)
[2019-02-21] MEDS ORDERED: CYCLOBENZAPRINE 10 MG (FLEXERIL) TAB PO ONE (20:30)
[2019-02-21] MEDS ORDERED: PROCHLORPERAZINE 10 MG/2ML INJ (COMPAZINE) IV ONE (20:30)
[2019-02-21] MEDS ORDERED: ACETAMINOPHEN 500 MG TAB (TYLENOL) PO ONE (20:30)
[2019-02-21] MEDS ORDERED: methylPREDNISolone 40 MG/ML (DEPO MEDROL) VIAL IM ONE (20:30)
[2019-02-21] MEDS ORDERED: diphenhydrAMINE 50 MG/ML INJ (BENADRYL) IVP ONE (20:30)
[2019-02-21] MEDS ORDERED: ONDANSETRON 4 MG (ZOFRAN) ORAL DISSOLVE TAB PO STA (20:51)
[2019-02-21] MEDS ORDERED: PROCHLORPERAZINE 10 MG/2ML INJ (COMPAZINE) IM ONE (21:00)
[2019-02-21] MEDS ORDERED: KETOROLAC 30 MG/ML VIAL IM ONE (21:00)
[2019-02-21] MEDS ORDERED: diphenhydrAMINE 25 MG TAB (BENADRYL) PO ONE (21:00)
[2019-02-21] MEDS ORDERED: CYCL10TA9 PO (21:58)
[2019-02-21] MEDS ORDERED: PROM25TA14 PO (21:58)
[2019-02-21] MEDS ORDERED: MECL-106 PO (21:58)
[2019-02-21] MEDS ORDERED: ONDA4TAB11 PO (21:58)
[2019-02-21 22:22] VITALS: BP 121/62
== END 2019-02-21 22:25 | disposition home or self-care (01) ==
LOC: EDUNIT# 19:35 → ER 19:36
DX: G43.909 Migraine, unspecified, not intractable, without status migrainosus (principal); H83.01 Labyrinthitis, right ear; M62.830 Muscle spasm of back; R42 Dizziness and giddiness
CPT/HCPCS: 99284

== ENCOUNTER 2019-06-07 15:51 | Emergency (ER) | payer MEDICARE, MEDICAID ==
[~2019-06-07] VITALS: Ht 152 cm; Wt 60.0 kg
[~2019-06-07 15:51] MED LIST changes: +CYCL10TA9 PO; +MECL-106 PO; +ONDA4TAB11 PO; +PROM25TA14 PO; -REGADENOSON 0.4 MG/5 ML SYR (LEXISCAN) IV ONE
[2019-06-07] MEDS ORDERED: GABA-488 (16:37)
[2019-06-07] MEDS ORDERED: PRD10T (16:37)
[2019-06-07] MEDS ORDERED: GALC120P (16:37)
[2019-06-07] MEDS ORDERED: AMLO2.5T4 (16:37)
[2019-06-07] MEDS ORDERED: TOPI50TA13 (16:37)
[2019-06-07] MEDS ORDERED: CEPH500C (16:37)
[2019-06-07] MEDS ORDERED: NS IV 1000 ML 1,000 ML IV ONE (17:14)
[2019-06-07] MEDS ORDERED: KETOROLAC 30 MG/ML VIAL IVP ONE (17:15)
--- NOTE | 2019-06-07 17:27 | ED Headache ---
General Chief Complaint: Head/Cervical Problems Stated Complaint: HEADACHE Nursing Triage Note: PT CO OF HEAD ACHE AND SWELLING OF WORSHIP AREA OF HEAD, POOR SLEEPING, STATES JUST DOES NOT FEEL RIGHT. HAS BEEN SEEN IN DR WHITE OFFICE TWICE THIS WEEK. WAS GIVEN B12, KEFLEX, PAIN INJECTION, STEROID, PT RATES10. PT HAS HX OF MIGRAINE ESTRELLA. HAS BEEN GOING ON FOR 3 WEEKS BUT WORSENING ON MONDAY THIS WEEK Nursing Sepsis Screen: No Definite Risk Source: patient Exam Limitations: no limitations History of Present Illness Date Seen by Provider: Jun 07, 2019 Time Seen by Provider: 17:04 Initial Comments This 58-year-old woman presents to the emergency room with complaints of headache ongoing for up to 3 weeks. She does have history of migraines. She has been assessed already at Dr. Peters's office and had blood work performed. She was prescribed steroids, B-12 injection, and Keflex. An MRI scheduled for June 14. She recently started the Emgality injection therapy for migraine prophylaxis. Patient also reports having a seizure 1 while living in [place]. She has taken gabapentin and Topamax since then. She denies any focal neurologic deficits other than some intermittent blurry vision in the right eye. She complains of a sensation of pain and swelling in the right temporal region and to a lesser extent in the left temporal region. She has taken Tylenol and ibuprofen for her headache without resolution. Allergies and Home Medications Allergies Coded Allergies: No Allergy Information Available (Unverified , 01/18/19) Home Medications Cyclobenzaprine HCl 10 Mg Tablet, 10 MG PO Q8H PRN for SPASMS Prescribed by: GALO EVERETT on 06/07/19 191 Patient Home Medication List Home Medication List Reviewed: Yes Review of Systems Review of Systems Constitutional: no symptoms reported Eyes: See HPI Ears, Nose, Mouth, Throat: no symptoms reported Respiratory: no symptoms reported Cardiovascular: no symptoms reported Gastrointestinal: no symptoms reported Genitourinary: no symptoms reported : No Musculoskeletal: no symptoms reported Skin: no symptoms reported Psychiatric/Neurological: See HPI Past Elfwslq-Qruptz-Vrhabu Hx Patient Social History Alcohol Use: Occasionally Uses Recreational Drug Use: No Smoking Status: Current Someday Smoker Type Used: Cigarettes Recent Foreign Travel: No Contact w/Someone Who Travel: No Recent Infectious Disease Expo: No Recent Hopitalizations: No Physical Abuse: No Sexual Abuse: No Immunizations Up To Date PED Vaccines UTD: No Seasonal Allergies Seasonal Allergies: No Past Medical History Surgeries: Yes Appendectomy, Orthopedic, Tonsillectomy Respiratory: No Cardiac: Yes Hypertension Neurological: Yes Headaches /Migraines, Seizure Disorder : No 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 oz. 58.373691ts; 25.00 BMI Method:Estimated General Appearance: WD/WN, no apparent distress HEENT: PERRL/EOMI, normal ENT inspection, TMs normal, pharynx normal, other (Basic funduscopic exam revealed no gross abnormalities. Intraocular pressure was checked on the right eye with the Aram-Pen. 2 separate tests were performed and measured 23 and 21. Visual acuity was 20/15 in the left eye and 20/20 in the right eye) Neck: normal inspection Cardiovascular: regular rate, rhythm, no edema, no murmur Respiratory: lungs clear, normal breath sounds, no respiratory distress, no accessory muscle use Gastrointestinal: non tender, soft Extremities: normal inspection, no pedal edema Psychiatric: alert Crainal Nerves: normal hearing, normal speech, PERRL Motor/Sensory: no motor deficit, no sensory deficit Skin: normal color, warm/dry Progress/Results/Core Measures Results/Orders Lab Results Laboratory Tests Test 06/07/19 17:30 Range/Units White Blood Count 6.8 4.3-11.0 10^3/uL Red Blood Count 4.24 L 4.35-5.85 10^6/uL Hemoglobin 13.7 11.5-16.0 G/DL Hematocrit 42 35-52 % Mean Corpuscular Volume 98 80-99 FL Mean Corpuscular Hemoglobin 32 25-34 PG Mean Corpuscular Hemoglobin Concent 33 32-36 G/DL Red Cell Distribution Width 13.3 10.0-14.5 % Platelet Count 416 H 130-400 10^3/uL Mean Platelet Volume 10.3 7.4-10.4 FL Neutrophils (%) (Auto) 76 H 42-75 % Lymphocytes (%) (Auto) 20 12-44 % Monocytes (%) (Auto) 4 0-12 % Eosinophils (%) (Auto) 0 0-10 % Basophils (%) (Auto) 0 0-10 % Neutrophils # (Auto) 5.1 1.8-7.8 X 10^3 Lymphocytes # (Auto) 1.4 1.0-4.0 X 10^3 Monocytes # (Auto) 0.3 0.0-1.0 X 10^3 Eosinophils # (Auto) 0.0 0.0-0.3 10^3/uL Basophils # (Auto) 0.0 0.0-0.1 10^3/uL Erythrocyte Sedimentation Rate 5 0-30 MM/HR Sodium Level 141 135-145 MMOL/L Potassium Level 3.5 L 3.6-5.0 MMOL/L Chloride Level 108 H 98-107 MMOL/L Carbon Dioxide Level 23 21-32 MMOL/L Anion Gap 10 5-14 MMOL/L Blood Urea Nitrogen 14 7-18 MG/DL Creatinine 0.68 0.60-1.30 MG/DL Estimat Glomerular Filtration Rate > 60 BUN/Creatinine Ratio 21 Glucose Level 95 70-105 MG/DL Calcium Level 9.3 8.5-10.1 MG/DL Corrected Calcium 8.9 8.5-10.1 MG/DL Magnesium Level 2.1 1.6-2.4 MG/DL Total Bilirubin 0.5 0.1-1.0 MG/DL Aspartate Amino Transf (AST/SGOT) 16 5-34 U/L Alanine Aminotransferase (ALT/SGPT) 17 0-55 U/L Alkaline Phosphatase 60 40-136 U/L C-Reactive Protein High Sensitivity 0.02 0.00-0.50 MG/DL Total Protein 7.0 6.4-8.2 GM/DL Albumin 4.5 3.2-4.5 GM/DL My Orders Orders - GALO MATIAS MD Cbc With Automated Diff (06/07/19 17:14) Comprehensive Metabolic Panel (06/07/19 17:14) Hs C Reactive Protein (06/07/19 17:14) Erythrocyte Sedimentation Rate (06/07/19 17:14) Magnesium (06/07/19 17:14) Ed Iv/Invasive Line Start (06/07/19 17:14) Ns Iv 1000 Ml (Sodium Chloride 0.9%) (06/07/19 17:14) Ketorolac Injection (Toradol Injection) (06/07/19 17:15) Tetracaine 0.5% Ophth Radha Sdv (Tetracai (06/07/19 17:30) Vitamin D 25-Hydroxy (06/07/19 19:10) Medications Given in ED Current Medications Medications Dose Ordered Sig/Kate Route Start Time Stop Time Status Last Admin Dose Admin Ketorolac Tromethamine 15 mg ONCE ONCE IVP 06/07/19 17:15 06/07/19 17:17 DC 06/07/19 17:28 15 MG Sodium Chloride 1,000 ml @ 0 mls/hr Q0M ONCE IV 06/07/19 17:14 06/07/19 17:17 DC 06/07/19 17:28 0 MLS/HR Tetracaine HCl 1 OR 2 DROPS INTO AFFEC... ONCE ONCE OP 06/07/19 17:30 06/07/19 17:31 DC 06/07/19 17:33 4 ML Vital Signs/I&O 06/07/19 06/07/19 16:25 19:23 Temp 36.3 36.3 Pulse 100 84 Resp 18 20 B/P (MAP) 134/88 (103) 134/88 (103) Pulse Ox 100 100 Blood Pressure Mean: 103 Progress Progress Note : Progress Note Patient was treated with Toradol and IV fluids with good improvement. Intraocular pressure of the right eye was tested with Aram-Pen. Pressures were 23 and 21. These findings were not critical. Patient states she does have significant muscle tension which she believes may be contributing to her headache. Cyclobenzaprine was prescribed. Patient was also advised to see an eye doctor promptly. See discharge instructions. Departure Impression Primary Impression: Headache Qualified Codes: R51 - Headache Additional Impression: Blurry vision, right eye Disposition: 01 HOME, SELF-CARE Condition: Improved Departure-Patient Inst. Decision time for Depature: 19:13 Referrals: AQUILINO PETERS MD (PCP/Family) Primary Care Physician Patient Instructions: Headache, Adult Add. Discharge Instructions: For treatment of your headache you may continue to use ibuprofen up to 600 mg every 6 hours as needed as well as Tylenol (acetaminophen) up to 650 mg every 6 hours as needed. You may also try relaxation techniques such as gentle heat on your neck and shoulders. You may trial cyclobenzaprine muscle relaxer as prescribed. Follow-up with an eye doctor as soon as possible. The number for Dr. George's clinic is below. Please also follow-up with your primary care provider soon as possible. Return to care promptly if you have escalating symptoms, especially if you deve lop neurologic symptoms such as confusion, worsening vision changes, numbness or weakness in any extremity, difficulty speaking, etc. These changes should be considered a medical emergency. If these changes occur you should return to care and have imaging studies performed. Please follow through with the MRI you have scheduled. Stay well-hydrated and eat a well-balanced diet. All discharge instructions reviewed with patient and/or family. Voiced understanding. Scripts Cyclobenzaprine HCl (Cyclobenzaprine HCl) 10 Mg Tablet 10 MG PO Q8H PRN for SPASMS, #15 TAB 0 Refills Prov: GALO MATIAS MD 06/07/19 Copy Copies To 1: AQUILINO PETERS MD Copies To 2: ANA GEORGE OD, JOSHUA T MD Jun 07, 2019 17:27
[2019-06-07] MEDS ORDERED: TETRACAINE 0.5% OPHTH SOLN 4 ML BTL (SINGLE DOSE ONLY) OP ONE (17:30)
[2019-06-07 17:35] LABS: BASOPHILS % (AUTO) 0 % (0-10); EOSINOPHILS % (AUTO) 0 % (0-10); HEMATOCRIT 42 % (35-52); HEMOGLOBIN 13.7 G/DL (11.5-16.0); LYMPHOCYTES # (AUTO) 1.4 X 10^3 (1.0-4.0); LYMPHOCYTES % (AUTO) 20 % (12-44); MEAN CORPUSCULAR HEMOGLOBIN 32 PG (25-34); MEAN CORPUSCULAR HGB CONC 33 G/DL (32-36); MEAN CORPUSCULAR VOLUME 98 FL (80-99); MEAN PLATELET VOLUME 10.3 FL (7.4-10.4); MONOCYTES # (AUTO) 0.3 X 10^3 (0.0-1.0); MONOCYTES % (AUTO) 4 % (0-12); NEUTROPHILS # (AUTO) 5.1 X 10^3 (1.8-7.8); NEUTROPHILS % (AUTO) 76 % (42-75); PLATELET COUNT 416 10^3/uL (130-400); RED CELL DISTRIBUTION WIDTH 13.3 % (10.0-14.5); WHITE BLOOD COUNT 6.8 10^3/uL (4.3-11.0)
[2019-06-07 17:57] LABS: ALANINE AMINOTRANSFERASE 17 U/L (0-55); ALBUMIN 4.5 GM/DL (3.2-4.5); ALKALINE PHOSPHATASE 60 U/L (40-136); BILIRUBIN,TOTAL 0.5 MG/DL (0.1-1.0); BUN/CREATININE RATIO 21; CALCIUM 9.3 MG/DL (8.5-10.1); CARBON DIOXIDE 23 MMOL/L (21-32); CHLORIDE 108 MMOL/L (98-107); CREATININE SERUM 0.68 MG/DL (0.60-1.30); GFR ESTIMATED > 60; GLUCOSE 95 MG/DL (70-105); MAGNESIUM 2.1 MG/DL (1.6-2.4); POTASSIUM 3.5 MMOL/L (3.6-5.0); SODIUM 141 MMOL/L (135-145)
[2019-06-07 18:00] LABS: ERYTHROCYTE SEDIMENTATION RATE 5 MM/HR (0-30)
--- NOTE | 2019-06-07 19:00 | NUR ---
REPORT TO OWEN YEBOAH
[2019-06-07] MEDS ORDERED: CYCL10TA9 PO (19:16)
[2019-06-07 19:23] VITALS: BP 134/88
== END 2019-06-07 19:22 | disposition home or self-care (01) ==
LOC: EDUNIT# 15:51 → ER 15:52
DX: R51 Headache (principal); H53.8 Other visual disturbances; I10 Essential (primary) hypertension; G40.909 Epilepsy, unspecified, not intractable, without status epilepticus; F17.210 Nicotine dependence, cigarettes, uncomplicated; Z98.51 Tubal ligation status; Z86.69 Personal history of other diseases of the nervous system and sense organs; Z90.49 Acquired absence of other specified parts of digestive tract; Z90.89 Acquired absence of other organs
CPT/HCPCS: 36415; 80053; 82306; 83735; 85025; 85652; 86141

== ENCOUNTER → 2019-06-14 | Outpatient (CLI) | payer MEDICARE, MEDICAID ==
[~2019-06-14] MED LIST changes: +AMLO2.5T4; +CEPH500C; +GABA-488; +GADOBUTROL 7.5 MMOL/7.5 ML (GADAVIST) VIAL IV ONE; +GALC120P; +PRD10T; +TOPI50TA13
--- NOTE | 2019-06-14 09:53 | Diagnostic Imaging Report ---
PROCEDURE: MR imaging of the brain with and without contrast. TECHNIQUE: Multiplanar, multisequence MR imaging of the brain was performed with and without contrast. INDICATION: Headache and right temporal pain. No prior studies are available for comparison. The ventricles and sulci are within normal limits. No sulcal effacement or midline shift is identified. There is no diffusion restriction identified to suggest acute ischemia. Normal expected flow-voids within the carotid siphons are seen. No acute intra-axial or extra-axial hemorrhage is detected. The post contrast images are without abnormal enhancement. The corpus callosum is unremarkable. The sella and parasellar structures are unremarkable. IMPRESSION: Unremarkable pre and postcontrast MRI of the brain. Dictated by: Dictated on workstation # [id number]
== END ==
LOC: RAD 08:17
PROVIDERS: ATTEND Nurse Practitioner Family
DX: G50.1 Atypical facial pain (principal)
CPT/HCPCS: 70553

== ENCOUNTER 2019-07-02 12:15 | Emergency (ER) | payer MEDICARE, MEDICAID ==
[~2019-07-02] VITALS: Ht 152 cm; Wt 58.6 kg
[~2019-07-02 12:15] MED LIST changes: -GADOBUTROL 7.5 MMOL/7.5 ML (GADAVIST) VIAL IV ONE
[2019-07-02] MEDS ORDERED: PROMETHAZINE INJ 25 MG/ML (PHENERGAN) AMP IVP STA (14:00)
[2019-07-02] MEDS ORDERED: LACTATED RINGERS 1,000 ML IV STA (14:00)
[2019-07-02] MEDS ORDERED: diphenhydrAMINE 50 MG/ML INJ (BENADRYL) IV ONE (14:00)
[2019-07-02] MEDS ORDERED: KETOROLAC 30 MG/ML VIAL IVP STA (14:00)
--- NOTE | 2019-07-02 14:27 | ED Headache ---
General Chief Complaint: Dizziness/Syncope Stated Complaint: DIZZINESS;HEAD PAIN;NAUSEA Nursing Triage Note: pt presents to ed with complaints of dizziness since this am. pt states it is worse with movement of her head. pt also reports the dizziness comes in waves with nausea. pt reports payan x 2 days. pt had an mri last week and told it was normal. Nursing Sepsis Screen: No Definite Risk Source: patient Exam Limitations: no limitations History of Present Illness Date Seen by Provider: Jul 02, 2019 Time Seen by Provider: 13:54 Initial Comments Here with report of posterior headache that radiates over the top to the front. Worts with moving. She states that she woke up dizzy. This headaches been mild but worsening over the last 2 days. She had MRI 2 weeks ago and was told it was normal. She saw a chiropractor last week and did have neck manipulation. She had no problems after that until 2 days ago. She does have history of migraines. Complains of pain around the lateral aspect of the neck on the right side and radiating to the shoulder. Does have nausea but no vomiting. Denies fever or chills. Timing/Duration: other (12 hours for worsening but over onset 1-2 days.) Severity/Quality: moderate, pressure Location: frontal, occipital Prior Headaches/Recent Trauma: occasional headaches Modifying Factors: worse with movement; improves with rest Associated Symptoms: No fever/chills, No nausea/vomiting, No nasal congestion, No nasal drainage, No stiff neck, No vision changes Allergies and Home Medications Allergies Coded Allergies: No Known Drug Allergies (Unverified , 07/02/19) Home Medications Cyclobenzaprine HCl 10 Mg Tablet, 10 MG PO Q8H PRN for SPASMS Prescribed by: GALO EVERETT on 06/07/19 4886 Patient Home Medication List Home Medication List Reviewed: Yes Review of Systems Review of Systems Constitutional: see HPI; No chills, No fever Eyes: No Symptoms Reported Ears, Nose, Mouth, Throat: no symptoms reported Respiratory: no symptoms reported Cardiovascular: no symptoms reported Gastrointestinal: see HPI Musculoskeletal: see HPI, muscle pain, muscle stiffness, neck pain Skin: no symptoms reported All Other Systems Reviewed Negative Unless Noted: Yes Past Mvnnnsu-Jlqpoz-Mxdbul Hx Past Med/Social Hx: Reviewed Nursing Past Med/Soc Hx Patient Social History Alcohol Use: Occasionally Uses Recreational Drug Use: No Smoking Status: Current Everyday Smoker Type Used: Cigarettes Recent Foreign Travel: No Contact w/Someone Who Travel: No Recent Infectious Disease Expo: No Recent Hopitalizations: No Physical Abuse: No Sexual Abuse: No Mistreated: No Fear: No Immunizations Up To Date PED Vaccines UTD: No Seasonal Allergies Seasonal Allergies: No Past Medical History Surgeries: Yes Appendectomy, Orthopedic, Tonsillectomy Respiratory: No Cardiac: Yes Hypertension Neurological: Yes Headaches /Migraines, Seizure Disorder Reproductive Disorders: No 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 oz. 58.318715mm; 25.00 BMI Method:Estimated General Appearance: WD/WN, no apparent distress HEENT: PERRL/EOMI, pharynx normal Neck: full range of motion, supple, tender lateral (right-sided); No tender midline Cardiovascular: regular rate, rhythm, no murmur Gastrointestinal: non tender, soft Extremities: non-tender, normal inspection Psychiatric: alert, oriented x 3 Crainal Nerves: normal hearing, normal speech Coordination/Gait: normal gait Motor/Sensory: no motor deficit, no sensory deficit Skin: normal color, warm/dry Progress/Results/Core Measures Results/Orders Lab Results Laboratory Tests Test 07/02/19 14:21 Range/Units White Blood Count 5.3 4.3-11.0 10^3/uL Red Blood Count 4.41 4.35-5.85 10^6/uL Hemoglobin 14.2 11.5-16.0 G/DL Hematocrit 43 35-52 % Mean Corpuscular Volume 98 80-99 FL Mean Corpuscular Hemoglobin 32 25-34 PG Mean Corpuscular Hemoglobin Concent 33 32-36 G/DL Red Cell Distribution Width 12.8 10.0-14.5 % Platelet Count 421 H 130-400 10^3/uL Mean Platelet Volume 9.8 7.4-10.4 FL Neutrophils (%) (Auto) 67 42-75 % Lymphocytes (%) (Auto) 24 12-44 % Monocytes (%) (Auto) 8 0-12 % Eosinophils (%) (Auto) 0 0-10 % Basophils (%) (Auto) 0 0-10 % Neutrophils # (Auto) 3.6 1.8-7.8 X 10^3 Lymphocytes # (Auto) 1.3 1.0-4.0 X 10^3 Monocytes # (Auto) 0.4 0.0-1.0 X 10^3 Eosinophils # (Auto) 0.0 0.0-0.3 10^3/uL Basophils # (Auto) 0.0 0.0-0.1 10^3/uL Sodium Level 139 135-145 MMOL/L Potassium Level 3.5 L 3.6-5.0 MMOL/L Chloride Level 106 98-107 MMOL/L Carbon Dioxide Level 24 21-32 MMOL/L Anion Gap 9 5-14 MMOL/L Blood Urea Nitrogen 12 7-18 MG/DL Creatinine 0.70 0.60-1.30 MG/DL Estimat Glomerular Filtration Rate > 60 BUN/Creatinine Ratio 17 Glucose Level 97 70-105 MG/DL Calcium Level 9.4 8.5-10.1 MG/DL My Orders Orders - MIKE COOPER MD Promethazine Injection (Phenergan Injec (07/02/19 14:00) Lactated Ringers (Lr 1000 Ml Iv Solution (07/02/19 14:00) Ed Iv/Invasive Line Start (07/02/19 14:00) Diphenhydramine Injection (Benadryl Inje (07/02/19 14:00) Ketorolac Injection (Toradol Injection) (07/02/19 14:00) Basic Metabolic Panel (07/02/19 14:02) Cbc With Automated Diff (07/02/19 14:02) Medications Given in ED Current Medications Medications Dose Ordered Sig/Kate Route Start Time Stop Time Status Last Admin Dose Admin Diphenhydramine HCl 25 mg ONCE ONCE IV 07/02/19 14:00 07/02/19 14:03 DC 07/02/19 14:28 25 MG Vital Signs/I&O 07/02/19 13:29 Temp 36.5 Pulse 70 Resp 20 B/P (MAP) 143/87 (105) Pulse Ox 98 Blood Pressure Mean: 105 POS Progress Progress Note : Progress Note Seen and evaluated. IV, labs, normal saline 1 L bolus, Toradol 30 mg IV, and a 25 mg IV and Phenergan 25 mg IV ordered. Osteopathic student to provide OMM for neck strain and tightness on the right side using counterstrain, soft tissue and muscle energy. Monitor patient. Improved afterwards. Headache resolved. Patient complaining of dizziness when turning head. 1619: We did perform Chang maneuver on the patient and this did seem to help further resolve the dizziness. She has some medication effect from the Phenergan but that is different than what her dizziness description was and she had resolution after the Chang maneuver. I did recommend her following up with her doctor to consider physical therapy for the next strain as well as continue the Chang maneuver as needed. I will send a copy of the chart to Dr. Peters. Discharged home with return precautions. Patient verbalize understanding instructions and agreement with plan. Departure Impression Primary Impression: Tension headache Additional Impression: Benign positional vertigo Qualified Codes: H81.11 - Benign paroxysmal vertigo, right ear Disposition: 01 HOME, SELF-CARE Condition: Improved Departure-Patient Inst. Decision time for Depature: 16:21 Referrals: AQUILINO PETERS MD (PCP/Family) Primary Care Physician Patient Instructions: Vertigo (a Type of Dizziness) (DC), Vestibular Exercises, Tension Headache (DC) Add. Discharge Instructions: All discharge instructions reviewed with patient and/or family. Voiced understanding. Follow-up with your doctor for recheck and further evaluation and for consideration for referral for physical therapy. You may take Tyleno l/acetaminophen 1000 mg every 6-8 hours as needed for pain. You may take ibuprofen 600 mg every 8 hours as needed for pain. Drink plenty of fluids. Return for worse pain, fever, vomiting, weakness, breathing problems or other concerns as needed. MIKE COOPER MD Jul 02, 2019 14:27 POS
[2019-07-02 14:28] LABS: BASOPHILS % (AUTO) 0 % (0-10); EOSINOPHILS % (AUTO) 0 % (0-10); HEMATOCRIT 43 % (35-52); HEMOGLOBIN 14.2 G/DL (11.5-16.0); LYMPHOCYTES # (AUTO) 1.3 X 10^3 (1.0-4.0); LYMPHOCYTES % (AUTO) 24 % (12-44); MEAN CORPUSCULAR HEMOGLOBIN 32 PG (25-34); MEAN CORPUSCULAR HGB CONC 33 G/DL (32-36); MEAN CORPUSCULAR VOLUME 98 FL (80-99); MEAN PLATELET VOLUME 9.8 FL (7.4-10.4); MONOCYTES # (AUTO) 0.4 X 10^3 (0.0-1.0); MONOCYTES % (AUTO) 8 % (0-12); NEUTROPHILS # (AUTO) 3.6 X 10^3 (1.8-7.8); NEUTROPHILS % (AUTO) 67 % (42-75); PLATELET COUNT 421 10^3/uL (130-400); RED CELL DISTRIBUTION WIDTH 12.8 % (10.0-14.5); WHITE BLOOD COUNT 5.3 10^3/uL (4.3-11.0)
[2019-07-02 14:44] LABS: BUN/CREATININE RATIO 17; CALCIUM 9.4 MG/DL (8.5-10.1); CARBON DIOXIDE 24 MMOL/L (21-32); CHLORIDE 106 MMOL/L (98-107); GFR ESTIMATED > 60; GLUCOSE 97 MG/DL (70-105); POTASSIUM 3.5 MMOL/L (3.6-5.0); SODIUM 139 MMOL/L (135-145)
[2019-07-02 16:31] VITALS: BP 132/82
== END 2019-07-02 16:30 | disposition home or self-care (01) ==
LOC: EDUNIT# 12:15 → ER 12:16
DX: G44.209 Tension-type headache, unspecified, not intractable (principal); H81.10 Benign paroxysmal vertigo, unspecified ear; I10 Essential (primary) hypertension; G43.909 Migraine, unspecified, not intractable, without status migrainosus; G40.909 Epilepsy, unspecified, not intractable, without status epilepticus; F17.210 Nicotine dependence, cigarettes, uncomplicated; Z98.51 Tubal ligation status; Z90.49 Acquired absence of other specified parts of digestive tract; Z90.89 Acquired absence of other organs
CPT/HCPCS: 36415; 80048; 85025

== ENCOUNTER 2019-08-28 01:58 | Emergency (ER) | payer MEDICARE, MEDICAID ==
[~2019-08-28] VITALS: Ht 152 cm; Wt 60.0 kg
[2019-08-28] MEDS ORDERED: NS IV 1000 ML 1,000 ML IV ONE (02:06)
[2019-08-28] MEDS ORDERED: KETOROLAC 30 MG/ML VIAL IVP ONE (02:15)
[2019-08-28 02:17] LABS: BASOPHILS % (AUTO) 0 % (0-10); EOSINOPHILS # (AUTO) 0.1 10^3/uL (0.0-0.3); EOSINOPHILS % (AUTO) 1 % (0-10); HEMATOCRIT 43 % (35-52); HEMOGLOBIN 14.3 G/DL (11.5-16.0); LYMPHOCYTES # (AUTO) 2.2 X 10^3 (1.0-4.0); LYMPHOCYTES % (AUTO) 33 % (12-44); MEAN CORPUSCULAR HEMOGLOBIN 33 PG (25-34); MEAN CORPUSCULAR HGB CONC 33 G/DL (32-36); MEAN CORPUSCULAR VOLUME 100 FL (80-99); MEAN PLATELET VOLUME 9.6 FL (7.4-10.4); MONOCYTES # (AUTO) 0.5 X 10^3 (0.0-1.0); MONOCYTES % (AUTO) 8 % (0-12); NEUTROPHILS # (AUTO) 3.8 X 10^3 (1.8-7.8); NEUTROPHILS % (AUTO) 58 % (42-75); PLATELET COUNT 429 10^3/uL (130-400); WHITE BLOOD COUNT 6.6 10^3/uL (4.3-11.0)
[2019-08-28] MEDS ORDERED: ONDANSETRON 4 MG/2 ML (SDV) Z0FRAN IVP ONE (02:30)
[2019-08-28 02:39] LABS: BUN/CREATININE RATIO 16; CALCIUM 8.6 MG/DL (8.5-10.1); CARBON DIOXIDE 18 MMOL/L (21-32); CHLORIDE 111 MMOL/L (98-107); CREATININE SERUM 0.69 MG/DL (0.60-1.30); GFR ESTIMATED > 60; GLUCOSE 99 MG/DL (70-105); POTASSIUM 4.4 MMOL/L (3.6-5.0); SODIUM 142 MMOL/L (135-145)
--- NOTE | 2019-08-28 02:45 | ED Neurological Problem ---
General Chief Complaint: General Problems/Pain Stated Complaint: ESTRELLA,LEFT SIDED WEAKNESS Nursing Triage Note: TO ED ROOM 7 [facility] WITH C/O DIZZINESS THAT STARTED YESTERDAY MORNING. 0115- THIS AM LEFT SIDE FELT NUMB, "WEIRD SPACEY FEELING IN HEAD", CONTINUED DIZZINESS. Nursing Sepsis Screen: No Definite Risk Source: patient Exam Limitations: no limitations History of Present Illness Date Seen by Provider: Aug 28, 2019 Time Seen by Provider: 01:15 Initial Comments This 59-year-old woman with history of migraines presents to the emergency room via EMS with neurologic complaints which included a dull aching headache and perception of weakness on the left side. She has been having intermittent symptoms of left sided weakness sensation for 1-2 months. Tonight she noticed some balance difficulty on the left leg around 23:00. She later noticed some decreased cushion mat maker strength on the left. She had associated headache. After noticing the cushion mat maker weakness she activated EMS. EMS reports no measurable deficits on the [place] stroke scale. Blood pressure was slightly elevated at 157/89 and 129/69. Patient does have history of migraine symptoms, but she does not recall ever having left-sided extremity weakness with a migraine headache. She had an unremarkable MRI of the brain in May. She takes m ultiple medications for migraine prevention including Topamax, gabapentin, and Emgality. Dr. Peters is her primary care provider. During the initial assessment she developed a shooting pain from the base of her back up over the top of her head. She then developed associated nausea as well. Allergies and Home Medications Allergies Coded Allergies: No Known Drug Allergies (Unverified , 07/02/19) Home Medications Cyclobenzaprine HCl 10 Mg Tablet, 10 MG PO Q8H PRN for SPASMS Prescribed by: GALO EVERETT on 06/07/191915 Ondansetron 4 Mg Tab.rapdis, 4 MG SL Q4H PRN for NAUSEA/VOMITING Prescribed by: GALO EVERETT on 08/28/19 9082 Patient Home Medication List Home Medication List Reviewed: Yes Review of Systems Review of Systems Constitutional: no symptoms reported Eyes: No Symptoms Reported Ears, Nose, Mouth, Throat: see HPI Respiratory: no symptoms reported Cardiovascular: no symptoms reported Gastrointestinal: see HPI, nausea Genitourinary: no symptoms reported Musculoskeletal: no symptoms reported Skin: no symptoms reported Psychiatric/Neurological: See HPI Endocrine: No Symptoms Reported Hematologic/Lymphatic: No Symptoms Reported Past Pnfjctk-Adtksc-Qtdtma Hx Past Med/Social Hx: Reviewed and Corrections made Patient Social History Alcohol Use: Occasionally Uses Recreational Drug Use: No Smoking Status: Current Everyday Smoker Type Used: Cigarettes Recent Foreign Travel: No Contact w/Someone Who Travel: No Recent Infectious Disease Expo: No Recent Hopitalizations: No Physical Abuse: No Sexual Abuse: No Mistreated: No Fear: No Immunizations Up To Date PED Vaccines UTD: No Date of Influenza Vaccine: May 27, 2019 Seasonal Allergies Seasonal Allergies: No Past Medical History Surgeries: Yes Appendectomy, Orthopedic, Tonsillectomy Respiratory: No Cardiac: Yes Hypertension Neurological: Yes Headaches /Migraines, Seizure Disorder (seizure times one after withdrawal from benzodiazepines) Reproductive Disorders: No 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 oz. 58.446191dg; 25.00 BMI Method:Estimated General Appearance: WD/WN, no apparent distress HEENT: PERRL/EOMI, normal ENT inspection Neck: normal inspection; No carotid bruit Respiratory: lungs clear, normal breath sounds, no respiratory distress, no accessory muscle use Cardiovascular: regular rate, rhythm, no edema, no murmur Gastrointestinal: normal bowel sounds, soft Extremities: normal inspection, no pedal edema Neurologic/Psychiatric: mushroom packer II-XII nml as tested, alert, normal mood/affect, oriented x 3, motor weakness (subtle weakness of the left foot with dorsiflexion and flexion of the left thigh) Crainal Nerves: normal hearing, normal speech, PERRL Coordination/Gait: normal finger to nose, normal gait Motor/Sensory: no sensory deficit, weak motor strength LUE Skin: normal color, warm/dry Stroke NIH Stroke Scale Assessment Level of Consciousness: 0=Alert (0), Level of Consciousness-Questions: 0=Answers both month/age (0), LOC Commands: 0=Performs both tasks (0), Visual Jeong: 0=No visual loss (0), Facial Movement (Facial Paresis): 0=Normal symmetrical mnt (0), Motor Function-Arms Right: 0=No drift (0), Motor Function-Arms Left: 0=No drift (0), Motor Function-Legs Right: 0=No drift (0), Motor Function-Legs Left: 0=No drift (0), Limb Ataxia: 0=Absent (0), Sensory: 0=Normal:no loss (0), Best Language: 0=No aphasia (0), Dysarthria: 0=Normal (0), Extinction & Inattention: 0=No abnormality (0), Total: 0 Progress/Results/Core Measures Results/Orders Lab Results Laboratory Tests Test 08/28/19 02:05 Range/Units White Blood Count 6.6 4.3-11.0 10^3/uL Red Blood Count 4.28 L 4.35-5.85 10^6/uL Hemoglobin 14.3 11.5-16.0 G/DL Hematocrit 43 35-52 % Mean Corpuscular Volume 100 H 80-99 FL Mean Corpuscular Hemoglobin 33 25-34 PG Mean Corpuscular Hemoglobin Concent 33 32-36 G/DL Red Cell Distribution Width 14.0 10.0-14.5 % Platelet Count 429 H 130-400 10^3/uL Mean Platelet Volume 9.6 7.4-10.4 FL Neutrophils (%) (Auto) 58 42-75 % Lymphocytes (%) (Auto) 33 12-44 % Monocytes (%) (Auto) 8 0-12 % Eosinophils (%) (Auto) 1 0-10 % Basophils (%) (Auto) 0 0-10 % Neutrophils # (Auto) 3.8 1.8-7.8 X 10^3 Lymphocytes # (Auto) 2.2 1.0-4.0 X 10^3 Monocytes # (Auto) 0.5 0.0-1.0 X 10^3 Eosinophils # (Auto) 0.1 0.0-0.3 10^3/uL Basophils # (Auto) 0.0 0.0-0.1 10^3/uL Sodium Level 142 135-145 MMOL/L Potassium Level 4.4 3.6-5.0 MMOL/L Chloride Level 111 H 98-107 MMOL/L Carbon Dioxide Level 18 L 21-32 MMOL/L Anion Gap 13 5-14 MMOL/L Blood Urea Nitrogen 11 7-18 MG/DL Creatinine 0.69 0.60-1.30 MG/DL Estimat Glomerular Filtration Rate > 60 BUN/Creatinine Ratio 16 Glucose Level 99 70-105 MG/DL Calcium Level 8.6 8.5-10.1 MG/DL Magnesium Level 2.0 1.6-2.4 MG/DL My Orders Orders - GALO MATIAS MD Ed Iv/Invasive Line Start (08/28/19 02:06) Basic Metabolic Panel (08/28/19 02:06) Cbc With Automated Diff (08/28/19 02:06) Magnesium (08/28/19 02:06) Ketorolac Injection (Toradol Injection) (08/28/19 02:15) Ns Iv 1000 Ml (Sodium Chloride 0.9%) (08/28/19 02:06) Ct Angio Head/Neck (08/28/19 02:20) Ondansetron Injection (Zofran Injectio (08/28/19 02:30) Iohexol Injection (Omnipaque 350 Mg/Ml 1 (08/28/19 03:15) Received Contrast (Hold Metformin- Contr (08/28/19 03:15) Ns (Ivpb) (Sodium Chloride 0.9% Ivpb Bag (08/28/19 03:15) Medications Given in ED Vital Signs/I&O 08/28/19 08/28/19 01:59 04:28 Temp 36.5 36.5 Pulse 65 60 Resp 18 18 B/P (MAP) 147/98 (114) 135/92 (114) Pulse Ox 98 Blood Pressure Mean: 114 Progress Progress Note #1: Progress Note She was seen and examined shortly after arrival. Nurses and NIH stroke score was zero. This problem appears to be subacute in nature as it has been waxing and waning for a month or two. Chart was reviewed. Patient was noted to have an MRI of the brain in May. She has not had the cervical spine or the vasculature of the head and neck assessed. CT angiogram of the head and neck has been ordered it is pending. Headache is being treated with Toradol and IV fluids. Nausea is being treated with Zofran. Progress Note #2: Progress Note Symptoms improved significantly with IV hydration and Toradol. CT angiogram of the head and neck revealed no vascular pathology and no evidence of cervical spine stenosis. There was also no evidence of chronic or subacute CVA. I suspect patient's symptoms may be in part due to atypical migraine. Other pathology such as multiple sclerosis cannot be entirely ruled out, although MRI in May was negative. I encouraged patient to follow-up with her primary care provider to discuss further workup Diagnostic Imaging Diagonstic Imaging: CT Plain Films/CT/US/NM/MRI: other (Angiogram head and neck) Comments CT angiogram of the head and neck viewed by me and report reviewed. See report below: NAME: EMILIE DICK REC#: [id number] PT STATUS: DEP ER : 1960 PHYSICIAN: GALO MATIAS MD ADMIT DATE: 08/28/19/ER Signed Date of Exam:08/28/19 CT ANGIO HEAD/NECK PROCEDURE: CT angiography of the head and CT angiography of the neck with and without contrast. TECHNIQUE: Contiguous noncontrast images were obtained from the skull base through the vertex. After intravenous contrast administration, helical CT angiography of the neck was performed. Source data was reformatted into 3D MIP projections. Delayed post contrast acquisition was also obtained. Auto Exposure Controls were utilized during the CT exam to meet ALARA standards for radiation dose reduction. INDICATION: Dizziness. COMPARISON: MRI brain from 06/14/2019. FINDINGS: Noncontrast head: No hyperdense hemorrhage or space-occupying mass. No hydrocephalus or midline shift. Fan-white matter differentiation is well-preserved. The mastoid air cells are clear. Paranasal sinuses are also clear. No skull fracture or destructive process within the calvarium. Orbits are normal. CTA NECK: Lung apices show emphysema but are otherwise clear. There is conventional three-vessel branching pattern of the aortic arch. The great vessels are widely patent. The bilateral common carotid arteries are patent throughout the neck without dissection. No stenosis of the internal carotid arteries per NASCET criteria. The cervical segments of the bilateral internal carotid arteries are widely patent. The origins of the vertebral arteries are normal. Vertebral arteries are codominant and remain patent throughout the neck. No cervical lymphadenopathy. Visualized aspects of the thyroid are normal. The submandibular and parotid glands are normal. Airway is widely patent. Focal degenerative disease at C5-C6 and C6-C7 does not result in high-grade spinal stenosis. CTA HEAD: The bilateral distal internal carotid arteries have calcified plaquing but no significant luminal narrowing. No carotid terminus aneurysm on either side. The bilateral M1 and M2 divisions are widely patent. The M3 and M4 divisions of the middle cerebral arteries are symmetric. The A1 and A2 divisions of the anterior cerebral arteries are normal. No saccular aneurysm in the anterior communicating artery. The intracranial segments of the bilateral vertebral arteries are patent. Both vertebral arteries contribute to the basilar artery formation. Basilar artery is widely patent without saccular aneurysm. The posterior cerebral arteries are patent without aneurysm. The superior cerebellar, anterior-inferior cerebellar and posterior inferior cerebellar arteries are all patent centrally. No pathologic enhancement on delayed phase images. IMPRESSION: 1. No intracranial hemorrhage, hydrocephalus or space-occupying mass. 2. No intracranial medium or large vessel occlusion. 3. No significant stenosis of the neck arteries. 4. Findings are in agreement with the preliminary report. Dictated by: Dictated on workstation # [id number] Dict: 08/28/19 0815 Trans: 08/28/19 1309 RACHELLE [id number] Interpreted by: RENATA KINCAID MD Electronically signed by: RENATA KINCAID MD 08/28/19 1309 Departure Impression Primary Impression: Left-sided weakness Additional Impression: Migraine headache Qualified Codes: G43.909 - Migraine, unspecified, not intractable, without status migrainosus Disposition: 01 HOME, SELF-CARE Condition: Improved Departure-Patient Inst. Referrals: AQUILINO PETERS MD (PCP/Family) Primary Care Physician Patient Instructions: Migraine Headache (DC) Add. Discharge Instructions: You may take ibuprofen up to 600 mg every 6 hours and Tylenol (acetaminophen) up to 1000 mg every 6 hours as needed for treatment of headache. Use Zofran as prescribed for treatment of nausea and vomiting. Please follow-up with Dr. PETERS as soon as possible. Call this morning for an appointment time. Return to the emergency room if you have worsening symptoms including worsening weakness of the extremity, intensifying headache despite treatment, changes in vision or other acute neurologic problems. All discharge instructions reviewed with patient and/or family. Voiced understanding. Scripts Ondansetron (Ondansetron Odt) 4 Mg Tab.rapdis 4 MG SL Q4H PRN for NAUSEA/VOMITING, #10 TAB Prov: GALO MATIAS MD 08/28/19 Copy Copies To 1: AQUILINO PETERS MD, JOSHUA T MD Aug 28, 2019 02:45
[2019-08-28] MEDS ORDERED: IOHEXOL 350 MG/ML 100 ML (OMNIPAQUE 350) VIAL IV ONE (03:15)
[2019-08-28] MEDS ORDERED: NS 100 ML (IVPB) BAG IV ONE (03:15)
[2019-08-28] MEDS ORDERED: HOLD METFORMIN - RECEIVED CONTRAST 20 ML VIAL IV SCH (03:15)
[2019-08-28] MEDS ORDERED: ONDA4TAB11 SL (04:13)
[2019-08-28 04:28] VITALS: BP 135/92
--- NOTE | 2019-08-28 08:28 | Diagnostic Imaging Report ---
PROCEDURE: CT angiography of the head and CT angiography of the neck with and without contrast. TECHNIQUE: Contiguous noncontrast images were obtained from the skull base through the vertex. After intravenous contrast administration, helical CT angiography of the neck was performed. Source data was reformatted into 3D MIP projections. Delayed post contrast acquisition was also obtained. Auto Exposure Controls were utilized during the CT exam to meet ALARA standards for radiation dose reduction. INDICATION: Dizziness. COMPARISON: MRI brain from 06/14/2019. FINDINGS: Noncontrast head: No hyperdense hemorrhage or space-occupying mass. No hydrocephalus or midline shift. Fan-white matter differentiation is well-preserved. The mastoid air cells are clear. Paranasal sinuses are also clear. No skull fracture or destructive process within the calvarium. Orbits are normal. CTA NECK: Lung apices show emphysema but are otherwise clear. There is conventional three-vessel branching pattern of the aortic arch. The great vessels are widely patent. The bilateral common carotid arteries are patent throughout the neck without dissection. No stenosis of the internal carotid arteries per NASCET criteria. The cervical segments of the bilateral internal carotid arteries are widely patent. The origins of the vertebral arteries are normal. Vertebral arteries are codominant and remain patent throughout the neck. No cervical lymphadenopathy. Visualized aspects of the thyroid are normal. The submandibular and parotid glands are normal. Airway is widely patent. Focal degenerative disease at C5-C6 and C6-C7 does not result in high-grade spinal stenosis. CTA HEAD: The bilateral distal internal carotid arteries have calcified plaquing but no significant luminal narrowing. No carotid terminus aneurysm on either side. The bilateral M1 and M2 divisions are widely patent. The M3 and M4 divisions of the middle cerebral arteries are symmetric. The A1 and A2 divisions of the anterior cerebral arteries are normal. No saccular aneurysm in the anterior communicating artery. The intracranial segments of the bilateral vertebral arteries are patent. Both vertebral arteries contribute to the basilar artery formation. Basilar artery is widely patent without saccular aneurysm. The posterior cerebral arteries are patent without aneurysm. The superior cerebellar, anterior-inferior cerebellar and posterior inferior cerebellar arteries are all patent centrally. No pathologic enhancement on delayed phase images. IMPRESSION: 1. No intracranial hemorrhage, hydrocephalus or space-occupying mass. 2. No intracranial medium or large vessel occlusion. 3. No significant stenosis of the neck arteries. 4. Findings are in agreement with the preliminary report. Dictated by: Dictated on workstation # [id number]
== END 2019-08-28 04:29 | disposition home or self-care (01) ==
LOC: EDUNIT# 01:58 → ER 01:59
DX: G43.909 Migraine, unspecified, not intractable, without status migrainosus (principal); R53.1 Weakness; I10 Essential (primary) hypertension; G40.909 Epilepsy, unspecified, not intractable, without status epilepticus; F41.9 Anxiety disorder, unspecified; F17.210 Nicotine dependence, cigarettes, uncomplicated; Z90.89 Acquired absence of other organs; Z90.49 Acquired absence of other specified parts of digestive tract; Z98.51 Tubal ligation status
CPT/HCPCS: 36415; 70496; 70498; 80048; 83735; 85025; 96361; 96374; 96375

== ENCOUNTER 2019-10-02 05:37 | Outpatient (CLI) | payer MEDICARE, MEDICAID ==
[~2019-10-02] VITALS: Ht 152 cm; Wt 59.0 kg
[~2019-10-02 05:37] MED LIST changes: -AMLO2.5T4; +AMLO2.5T4 PO; -GABA-488; +GABA-488 PO; -GALC120P; +GALC120P IM; +ONDA4TAB11 SL; -TOPI50TA13; +TOPI50TA13 PO
[2019-10-02] MEDS ORDERED: CHOL200025 PO (09:49)
[2019-10-02] MEDS ORDERED: CYAN250014 PO (09:49)
[2019-10-02] MEDS ORDERED: CNC1KV IM (09:49)
== END 2019-10-02 09:58 ==
LOC: PREOP 05:37
PROVIDERS: ATTEND Surgery
DX: Z01.818 Encounter for other preprocedural examination (principal)

== ENCOUNTER → 2019-10-18 | Outpatient (CLI) | payer MEDICARE, MEDICAID ==
[~2019-10-18] MED LIST changes: +CHOL200025 PO; +CNC1KV IM; +CYAN250014 PO; -MECL-106 PO; +MECL-149 PO
--- NOTE | 2019-10-18 09:47 | Diagnostic Imaging Report ---
CLINICAL INDICATION: Patient has chronic neck pain. EXAM: MRI of the cervical spine performed without IV contrast. Sequences include sagittal T1, sagittal T2, sagittal stir, and axial T2. COMPARISON: CT angiogram of the head and neck with contrast dated 08/28/2019. FINDINGS: There is no acute cervical spine fracture or dislocation. There are minimal Modic type I degenerative signal changes involving the C6-C7 endplate regions. Limited visualization of the posterior fossa is unremarkable. The cervical spinal cord has normal cord caliber with no abnormal signal. There is no significant paraspinal soft tissue abnormality. There are cervical spine vertebral body spurs and facet arthropathy. C1-C2: There is no significant central canal narrowing. C2-C3: Unremarkable. C3-C4: There is a subtle central posterior disc bulge. There is no significant central spinal canal or neural foramen narrowing. C4-C5: There is diffuse disc bulge with small central posterior disc protrusion/herniation and annular tear. There is no significant central spinal canal or neural foramen narrowing. C5-C6: There is diffuse disc bulge with moderate loss of intervertebral disc height and small bilateral uncinate spurs. There is apze-tw-egzkwkat left facet arthropathy and mild right facet arthropathy. There is wtlykdys-ji-ylsfps left neuroforamen narrowing. There is mild right neuroforamen narrowing. There is mild central canal narrowing. C6-C7: There is diffuse disc bulge with moderate loss of intervertebral disc height with small bilateral uncinate spurs and mild ligamentum flavum buckling. There is severe right neuroforamen narrowing and at least mild left neuroforamen narrowing. C7-T1: There is no significant central spinal canal or neural foramen narrowing. IMPRESSION: Cervical spine degenerative disc disease with multilevel disc bulges and herniations which is described in detail above. Dictated by: Dictated on workstation # [id number]
== END ==
LOC: RAD 07:31
PROVIDERS: ATTEND Family Medicine
DX: Z12.31 Encounter for screening mammogram for malignant neoplasm of breast (principal); M50.31 Other cervical disc degeneration, high cervical region
CPT/HCPCS: 72141; 77067

== ENCOUNTER → 2019-10-25 | Outpatient (CLI) | payer MEDICAID, MEDICARE ==
--- NOTE | 2019-10-25 08:15 | Diagnostic Imaging Report ---
EXAMINATION: CT Chest without contrast (lung screening). TECHNIQUE: Multiple contiguous axial images were obtained through the chest without the use of intravenous contrast according to lung cancer screening protocol. All CT scans use one or more of the following dose optimizing techniques: automated exposure control, MA and/or KvP adjustment based on a patient size and exam type, or iterative reconstruction. HISTORY: 62 pack year history of smoking. COMPARISON: None available. FINDINGS: There is no edema or pneumonia. No pleural effusion. No pneumothorax. No suspicious nodules. Heart size is normal. There are no coronary artery calcifications. No pericardial effusion. Aorta is normal in caliber. There is no axillary or supraclavicular lymphadenopathy. There is no mediastinal lymphadenopathy. Limited views of the upper abdomen are unremarkable. There are no suspicious osseus lesions. IMPRESSION: 1. No suspicious pulmonary nodules. LUNG-RADS CATEGORY: 1 MODIFIER: None. Dictated by: Dictated on workstation # [id number]
== END ==
LOC: RAD 07:30
PROVIDERS: ATTEND Family Medicine
DX: Z12.2 Encounter for screening for malignant neoplasm of respiratory organs (principal); F17.210 Nicotine dependence, cigarettes, uncomplicated

== ENCOUNTER 2020-02-06 12:22 | Emergency (ER) | payer MEDICARE, MEDICAID ==
[~2020-02-06] VITALS: Ht 152 cm; Wt 60.3 kg
[2020-02-06] MEDS ORDERED: LORazepam INJ 2 MG/ML (ATIVAN) VIAL IVP PRN (12:30)
--- NOTE | 2020-02-06 12:33 | ED General ---
General Stated Complaint: BLOOD PRESSURE ISSUES; "NOT FEELING WELL" Source of Information: Patient Exam Limitations: No Limitations History of Present Illness Date Seen by Provider: Feb 06, 2020 Time Seen by Provider: 12:31 Initial Comments To ER with dizziness, anxiety, nausea. She was at her neurologist's office in [place] whom she sees for migraines when she developed headache dizziness and nausea. She decided to drive herself home to [place] and be seen here. She has no headache currently but she still has dizziness and nausea. She is crying on arrival states that this scares her. Timing/Duration: 1 Hour Severity: Moderate Associated Systoms: Headaches, Nausea/Vomiting Allergies and Home Medications Allergies Coded Allergies: acetaminophen (Verified Allergy, Severe, N/V, BREATHING DIFFICULTIES, 02/06/20) codeine (Verified Allergy, Severe, N/V, BREATHING DIFFICULTIES, 02/06/20) oxycodone (Verified Allergy, Severe, N/V, BREATHING DIFFICULTIES, 02/06/20) Home Medications Amlodipine Besylate 2.5 Mg Tablet, 2.5 MG PO DAILY, (Reported) Cholecalciferol (Vitamin D3) 2,000 Unit Tablet, 2,000 UNIT PO DAILY, (Reported) Cyanocobalamin 1,000 Mcg/Ml Inj, 1,000 MCG IM MONTHLY, (Reported) Cyanocobalamin (Vitamin B-12) 2,500 Mcg Tab.chew, 2,500 MCG PO DAILY, (Reported) Cyclobenzaprine HCl 10 Mg Tablet, 10 MG PO Q8H PRN for SPASMS Prescribed by: GALO EVERETT on 06/07/191915 Gabapentin 300 Mg Capsule, 300 MG PO HS, (Reported) Galcanezumab-Gnlm 120 Mg/1 Ml Pen.injctr, 120 MG IM MONTHLY, (Reported) Ondansetron 4 Mg Tab.rapdis, 4 MG SL Q4H PRN for NAUSEA/VOMITING Prescribed by: GALO EVERETT on 08/28/19 0413 Topiramate 50 Mg Tablet, 50 MG PO HS, (Reported) Patient Home Medication List Home Medication List Reviewed: Yes Review of Systems Review of Systems Constitutional: see HPI; No diaphoresis; dizziness; No weakness EENTM: see HPI Respiratory: no symptoms reported; No cough, No short of breath Cardiovascular: no symptoms reported; No chest pain Genitourinary: no symptoms reported Musculoskeletal: no symptoms reported Skin: no symptoms reported Psychiatric/Neurological: No Symptoms Reported Hematologic/Lymphatic: No Symptoms Reported Immunological/Allergic: no symptoms reported Past Vwxlrqt-Mhjvpx-Jrgnap Hx Patient Social History Type Used: Cigarettes 2nd Hand Smoke Exposure: Yes Recent Foreign Travel: No Contact w/Someone Who Travel: No Recent Hopitalizations: No Immunizations Up To Date PED Vaccines UTD: No Date of Influenza Vaccine: May 27, 2019 Seasonal Allergies Seasonal Allergies: Yes Past Medical History Surgeries: Yes (KNEE, SHOULDER) Appendectomy, Orthopedic, Tonsillectomy Respiratory: No Currently Using CPAP: No Currently Using BIPAP: No Cardiac: Yes Hypertension 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) Headaches /Migraines, Seizure Disorder Reproductive Disorders: No [employer] J[employer] History: Tubal Ligation, Menopausal Sexually Transmitted Disease: No HIV/AIDS: No Genitourinary: No Gastrointestinal: No Musculoskeletal: Yes (NECK) Arthritis Endocrine: Yes (vitamin D deficiency) HEENT: Yes (GLASSES) Loss of Vision: Denies Hearing Impairment: Denies Cancer: No Psychosocial: Yes Anxiety Integumentary: No Blood Disorders: No Adverse Reaction/Blood Tranf: No (N/A) Family Medical History No Pertinent Family Hx Physical Exam Vital Signs Vital Signs - First Documented 02/06/20 12:27 Temp 36.5 Pulse 68 Resp 22 B/P (MAP) 166/82 (110) Pulse Ox 96 Capillary Refill : Height, Weight, BMI Height: 5'2.00" Weight: 130lbs. oz. 58.702393hd; 25.53 BMI Method:Estimated General Appearance: No Apparent Distress, WD/WN Eyes: Bilateral Eye Normal Inspection, Bilateral Eye PERRL, Bilateral Eye EOMI HEENT: PERRL/EOMI, TMs Normal Neck: Full Range of Motion, Normal Inspection Respiratory: Normal Breath Sounds, No Accessory Muscle Use, No Respiratory Distress Cardiovascular: Regular Rate, Rhythm, Normal Peripheral Pulses Gastrointestinal: Normal Bowel Sounds, Non Tender, Soft Extremity: Normal Capillary Refill, Normal Inspection Neurologic/Psychiatric: Alert, Oriented x3, Other (crying) Skin: Normal Color, Warm/Dry Progress/Results/Core Measures Suspected Sepsis SIRS Temperature: Pulse: Respiratory Rate: Laboratory Tests 02/06/20 12:43: White Blood Count 5.5 Blood Pressure / Mean: Laboratory Tests 02/06/20 12:43: Creatinine 0.69, INR Comment 1.0, Platelet Count 386, Total Bilirubin 0.4 Results/Orders Lab Results Laboratory Tests Test 02/06/20 12:43 Range/Units White Blood Count 5.5 4.3-11.0 10^3/uL Red Blood Count 4.20 L 4.35-5.85 10^6/uL Hemoglobin 13.4 11.5-16.0 G/DL Hematocrit 41 35-52 % Mean Corpuscular Volume 98 80-99 FL Mean Corpuscular Hemoglobin 32 25-34 PG Mean Corpuscular Hemoglobin Concent 33 32-36 G/DL Red Cell Distribution Width 14.0 10.0-14.5 % Platelet Count 386 130-400 10^3/uL Mean Platelet Volume 10.0 7.4-10.4 FL Neutrophils (%) (Auto) 63 42-75 % Lymphocytes (%) (Auto) 29 12-44 % Monocytes (%) (Auto) 6 0-12 % Eosinophils (%) (Auto) 1 0-10 % Basophils (%) (Auto) 0 0-10 % Neutrophils # (Auto) 3.5 1.8-7.8 X 10^3 Lymphocytes # (Auto) 1.6 1.0-4.0 X 10^3 Monocytes # (Auto) 0.4 0.0-1.0 X 10^3 Eosinophils # (Auto) 0.1 0.0-0.3 10^3/uL Basophils # (Auto) 0.0 0.0-0.1 10^3/uL Prothrombin Time 13.8 12.2-14.7 SEC INR Comment 1.0 0.8-1.4 Activated Partial Thromboplast Time 33 24-35 SEC Sodium Level 141 135-145 MMOL/L Potassium Level 3.6 3.6-5.0 MMOL/L Chloride Level 111 H 98-107 MMOL/L Carbon Dioxide Level 20 L 21-32 MMOL/L Anion Gap 10 5-14 MMOL/L Blood Urea Nitrogen 10 7-18 MG/DL Creatinine 0.69 0.60-1.30 MG/DL Estimat Glomerular Filtration Rate > 60 BUN/Creatinine Ratio 14 Glucose Level 106 H 70-105 MG/DL Calcium Level 9.0 8.5-10.1 MG/DL Corrected Calcium 8.7 8.5-10.1 MG/DL Magnesium Level 1.9 1.6-2.4 MG/DL Total Bilirubin 0.4 0.1-1.0 MG/DL Aspartate Amino Transf (AST/SGOT) 19 5-34 U/L Alanine Aminotransferase (ALT/SGPT) 14 0-55 U/L Alkaline Phosphatase 64 40-136 U/L Myoglobin 25.0 10.0-92.0 NG/ML Troponin I < 0.028 <0.028 NG/ML B-Type Natriuretic Peptide 33.5 <100.0 PG/ML Total Protein 6.9 6.4-8.2 GM/DL Albumin 4.4 3.2-4.5 GM/DL My Orders Orders - KENDRA SCOTT V [employer]T [employer]OVERER Cbc With Automated Diff (02/06/20 12:) Magnesium (02/06/20 12:) Chest 1 View, Ap/Pa Only (02/06/20 12:27) Ekg Tracing (02/06/20 12:27) Comprehensive Metabolic Panel (02/06/20 12:) Myoglobin Serum (02/06/20 12:) Protime With Inr (02/06/20 12:27) Partial Thromboplastin Time (02/06/20 12:27) O2 (02/06/20 12:27) Monitor-Rhythm Ecg Trace Only (02/06/20 12:) Lipid Panel (02/07/20 06:00) Ed Iv/Invasive Line Start (02/06/20 12:27) BNP (02/06/20 12:27) Troponin I (02/06/20 12:27) Ct Head Wo (02/06/20 12:30) Lorazepam Injection (Ativan Injection) (02/06/20 12:30) Meclizine Tablet (Antivert Tablet) (02/06/20 13:45) Medications Given in ED Current Medications Medications Dose Ordered Sig/Kate Route Start Time Stop Time Status Last Admin Dose Admin Lorazepam 0.5 mg ONCE PRN IVP 02/06/20 12:30 02/06/20 12:49 0.5 MG Vital Signs/I&O 02/06/20 12:27 Temp 36.5 Pulse 68 Resp 22 B/P (MAP) 166/82 (110) Pulse Ox 96 Capillary Refill : Diagnostic Imaging Diagonstic Imaging: CT Comments NAME: [facility]IL[facility]ICK [facility] REC#: [id number] PT STATUS: REG ER : 1960 PHYSICIAN: KENDRA SCOTT APRN ADMIT DATE: 02/06/20/ER Signed Date of Exam:02/06/20 CT HEAD WO EXAMINATION: CT head without contrast. TECHNIQUE: Multiple contiguous axial images were obtained through the brain without the use of intravenous contrast. All CT scans use one or more of the following dose optimizing techniques: automated exposure control, MA and/or KvP adjustment based on a patient size and exam type, or iterative reconstruction. HISTORY: High blood pressure. COMPARISON: 08/28/2019. FINDINGS: No large acute territorial ischemia, mass, or hemorrhage. No midline shift or mass effect. The ventricles, cortical sulci, and basilar cisterns are patent and unremarkable. The orbits are normal. Paranasal sinuses are normal. Right mastoid effusion is present. No soft tissue abnormality is seen. No osseus lesions or fractures are seen. IMPRESSION: 1. No large acute territorial ischemia, mass, or hemorrhage. 2. Right mastoid effusion. Dictated by: Dictated on workstation # [id number] Dict: 02/06/20 1327 Trans: 02/06/20 1331 [id number] Interpreted by: WILY العراقي DO Electronically signed by: WILY العراقي DO 02/06/20 1331 Departure Communication (Admissions) I discussed with her the possibility of a canalith causing her dizziness. She states that she did have to see physical therapy about 6 months ago for dizziness and the maneuvers they taught her at that time were very helpful. She states that she is much more calm now, she is no longer crying, she feels good enough to go on home. Impression Primary Impression: Dizziness Additional Impression: right mastoid effusion Disposition: HOME, SELF-CARE Condition: Stable Departure-Patient Inst. Decision time for Depature: 13:39 Referrals: SHIRLEY BEGUM MD, HOLLY A MD (PCP/Family) Primary Care Physician Patient Instructions: Vertigo (a Type of Dizziness) (DC) Add. Discharge Instructions: 1. Call Dr. Begum the ear nose and throat physician to make an appointment to be seen for follow-up. Return to ER for any concerns. Take the antibiotics and steroids as directed Scripts Prednisone (Prednisone) 20 Mg Tab 40 MG PO DAILY, #6 TAB 0 Refills Prov: KENDRA SCOTT APRN 02/06/20 Amoxicillin/Potassium Clav (Augmentin 875-125 Tablet) 1 Each Tablet 1 EACH PO BID, #14 TAB 0 Refills Prov: KENDRA SCOTT APRN 02/06/20 Meclizine HCl (Meclizine HCl) 25 Mg Tablet 25 MG PO TID, #9 TAB Prov: KENDRA SCOTT APRN 02/06/20 Copy Copies To 1: AQUILINO BRUCE MD, PETER J APRN Feb 06, 2020 12:33
[2020-02-06 12:51] LABS: BASOPHILS % (AUTO) 0 % (0-10); EOSINOPHILS # (AUTO) 0.1 10^3/uL (0.0-0.3); EOSINOPHILS % (AUTO) 1 % (0-10); HEMATOCRIT 41 % (35-52); HEMOGLOBIN 13.4 G/DL (11.5-16.0); LYMPHOCYTES # (AUTO) 1.6 X 10^3 (1.0-4.0); LYMPHOCYTES % (AUTO) 29 % (12-44); MEAN CORPUSCULAR HEMOGLOBIN 32 PG (25-34); MEAN CORPUSCULAR HGB CONC 33 G/DL (32-36); MEAN CORPUSCULAR VOLUME 98 FL (80-99); MONOCYTES # (AUTO) 0.4 X 10^3 (0.0-1.0); MONOCYTES % (AUTO) 6 % (0-12); NEUTROPHILS # (AUTO) 3.5 X 10^3 (1.8-7.8); NEUTROPHILS % (AUTO) 63 % (42-75); PLATELET COUNT 386 10^3/uL (130-400); WHITE BLOOD COUNT 5.5 10^3/uL (4.3-11.0)
[2020-02-06 13:10] LABS: ALBUMIN 4.4 GM/DL (3.2-4.5); CHLORIDE 111 MMOL/L (98-107); POTASSIUM 3.6 MMOL/L (3.6-5.0); SODIUM 141 MMOL/L (135-145)
[2020-02-06 13:12] LABS: GLUCOSE 106 MG/DL (70-105)
[2020-02-06 13:13] LABS: TOTAL PROTEIN 6.9 GM/DL (6.4-8.2)
[2020-02-06 13:14] LABS: BILIRUBIN,TOTAL 0.4 MG/DL (0.1-1.0); CARBON DIOXIDE 20 MMOL/L (21-32)
[2020-02-06 13:15] LABS: PROTHROMBIN TIME PATIENT 13.8 SEC (12.2-14.7)
[2020-02-06 13:16] LABS: ALKALINE PHOSPHATASE 64 U/L (40-136); CREATININE SERUM 0.69 MG/DL (0.60-1.30); GFR ESTIMATED > 60
[2020-02-06 13:17] LABS: BUN/CREATININE RATIO 14
[2020-02-06 13:19] LABS: ALANINE AMINOTRANSFERASE 14 U/L (0-55); MAGNESIUM 1.9 MG/DL (1.6-2.4)
--- NOTE | 2020-02-06 13:30 | Diagnostic Imaging Report ---
EXAMINATION: CT head without contrast. TECHNIQUE: Multiple contiguous axial images were obtained through the brain without the use of intravenous contrast. All CT scans use one or more of the following dose optimizing techniques: automated exposure control, MA and/or KvP adjustment based on a patient size and exam type, or iterative reconstruction. HISTORY: High blood pressure. COMPARISON: 08/28/2019. FINDINGS: No large acute territorial ischemia, mass, or hemorrhage. No midline shift or mass effect. The ventricles, cortical sulci, and basilar cisterns are patent and unremarkable. The orbits are normal. Paranasal sinuses are normal. Right mastoid effusion is present. No soft tissue abnormality is seen. No osseus lesions or fractures are seen. IMPRESSION: 1. No large acute territorial ischemia, mass, or hemorrhage. 2. Right mastoid effusion. Dictated by: Dictated on workstation # [id number]
--- NOTE | 2020-02-06 13:32 | NUR ---
Radha vora in [facility] - 02/06/20 at 1332 by PMCCLURE ROOM READY
--- NOTE | 2020-02-06 13:39 | Diagnostic Imaging Report ---
PATIENT HISTORY: Hypertension. TECHNIQUE: Single frontal view of the chest. COMPARISON: CT from 10/25/2019. FINDINGS: The lung volumes are normal. No focal consolidation is seen. No large pleural effusion or pneumothorax is seen. The cardiomediastinal silhouette is normal in size and contour. No acute osseous abnormality is seen. IMPRESSION: No acute pulmonary abnormality seen. Dictated by: Dictated on workstation # [id number]
[2020-02-06] MEDS ORDERED: PRD20T PO (13:42)
[2020-02-06] MEDS ORDERED: AMOX-358 PO (13:42)
[2020-02-06] MEDS ORDERED: MECL-149 PO (13:42)
[2020-02-06] MEDS ORDERED: MECLIZINE 25 MG (ANTIVERT) TAB PO ONE (13:45)
[2020-02-06 13:55] VITALS: BP 133/67
--- OUTSIDE RECORDS SUMMARY | 2020-02-06 15:45 | XMS REPORT | Continuity of Care Document ---
Author Organization Unknown Address Unknown Phone Unavailable Allergies Active Description Code Type Severity Reaction Onset Reported/Identified Relationship to Patient Clinical Status Yes No Allergy Information Available [id number] Drug Allergy Unknown N/A 019 Yes No Known Drug Allergies [id number] Drug Allergy Unknown N/A 07/02/2019 Yes acetaminophen [id number] Brody g Allergy Severe N/V, BREATHING 10/02/2019 Yes codeine [id number] Drug Allergy Severe N/V, BREATHING 10/02/2019 Yes oxycodone [id number] Drug Allergy Severe N/V, BREATHING 10/02/2019 Medications There is no data. Problems Date Dx Coded Attending Type Code Diagnosis Diagnosed By 01/02/2019 AQUILINO PETERS MD Ot S43.491A OTHER SPRAIN OF RIGHT SHOULDER JOINT, IN 01/02/2019 AQUILINO PETERS MD Ot W19.XXXA UNSPECIFIED FALL, INITIAL ENCOUNTER 01/22/2019 AQUILINO PETERS MD Ot S43.491A OTHER SPRAIN OF RIGHT SHOULDER JOINT, IN 01/22/2019 AQUILINO PETERS MD Ot W19.XXXA UNSPECIFIED FALL, INITIAL ENCOUNTER 01/22/2019 JENNY BUNCH FACC, CONSTANTINE CAMPOVERDEP CCDS Ot E78.5 HYPERLIPIDEMIA, UNSPECIFIED 01/22/2019 JENNY BUNCH FACC, CONSTANTINE FACP CCDS Ot I51.7 CARDIOMEGALY 01/22/2019 CONSTANTINE ALVARADO MD, FACCP CCDS Ot R94.31 ABNORMAL ELECTROCARDIOGRAM [ECG] [EKG] 01/22/2019 CONSTANTINE ALVARADO MD, FACCP CCDS Ot Z72.0 TOBACCO USE 02/08/2019 CONSTANTINE ALVARADO MD, FACC FACP CCDS Ot E78.5 HYPERLIPIDEMIA, UNSPECIFIED 02/08/2019 JENNY BUNCH FACC, CONSTANTINE FACP CCDS Ot I51.7 CARDIOMEGALY 02/08/2019 CONSTANTINE ALVARADO MD, FACC FACP CCDS Ot R94.31 ABNORMAL ELECTROCARDIOGRAM [ECG] [EKG] 02/08/2019 JENNY BUNCH FACC, ALI FACP CCDS Ot Z72.0 TOBACCO USE 02/21/2019 ALLIE BUNCH, ANGE J Ot G43.909 MIGRAINE, UNSP, NOT INTRACTABLE, WITHOUT 02/21/2019 ALLIE BUNCH, ANGE J Ot H83. 01 LABYRINTHITIS, RIGHT EAR 02/21/2019 ALLIE BUNCH, ANGE J Ot M62.830 MUSCLE SPASM OF BACK 02/21/2019 ALLIE BUNCH, ANGE J Ot R42 DIZZINESS AND GIDDINESS 02/25/2019 ALLIE BUNCH, ANGE J Ot G43.909 MIGRAINE, UNSP, NOT INTRACTABLE, WITHOUT 02/25/2019 ALLIE BUNCH, ANGE J Ot H83. 01 LABYRINTHITIS, RIGHT EAR 02/25/2019 ALLIE BUNCH, ANGE J Ot M62.830 MUSCLE SPASM OF BACK 02/25/2019 ALLIE BUNCH, ANGE J Ot R42 DIZZINESS AND GIDDINESS 04/08/2019 JENNY BUNCH FACC, ALI FACP CCDS Ot E78.5 HYPERLIPIDEMIA, UNSPECIFIED 04/08/2019 JENNY BUNCH FACC, ALI FACP CCDS Ot I51.7 CARDIOMEGALY 04/08/2019 JENNY BUNCH FACC, ALI FACP CCDS Ot R94.31 ABNORMAL ELECTROCARDIOGRAM [ECG] [EKG] 04/08/2019 JENNY BUNCH FACC, ALI FACP CCDS Ot Z72.0 TOBACCO USE 04/08/2019 FRAN BUNCH, AQUILINO Jensen Ot S43.491A OTHER SPRAIN OF RIGHT SHOULDER JOINT, IN 04/08/2019 FRAN BUNCH, AQUILINO Jensen Ot W19.XXXA UNSPECIFIED FALL, INITIAL ENCOUNTER 06/07/2019 FLORENCIO BUNCH, GALO Rockwell Ot F17.210 NICOTINE DEPENDENCE, CIGARETTES, UNCOMPL 06/07/2019 GALO MATIAS MD Ot G40.909 EPILEPSY, UNSP, NOT INTRACTABLE, WITHOUT 06/07/2019 GALO MATIAS MD Ot H53.8 OTHER VISUAL DISTURBANCES 06/07/2019 GALO MATIAS MD Ot I10 ESSENTIAL (PRIMARY) HYPERTENSION 06/07/2019 GALO MATIAS MD Ot R51 HEADACHE 06/07/2019 GALO MATIAS MD Ot Z86.69 PERSONAL HISTORY OF DIS OF THE NERVOUS S 06/07/2019 FLORENCIO BUNCH, GALO Rockwell Ot Z90.49 ACQUIRED ABSENCE OF OTHER SPECIFIED PART 06/07/2019 GALO MATIAS MD Ot Z90.89 ACQUIRED ABSENCE OF OTHER ORGANS 06/07/2019 GALO MATIAS MD Ot Z98.51 TUBAL LIGATION STATUS 06/19/2019 AMANDA PAREKH APRN Ot G50.1 ATYPICAL FACIAL PAIN 07/02/2019 MIKE COOPER MD Ot F17.210 NICOTINE DEPENDENCE, CIGARETTES, UNCOMPL 07/02/2019 MIKE COOPER MD Ot G40.909 EPILEPSY, UNSP, NOT INTRACTABLE, WITHOUT 07/02/2019 MIKE COOPER MD Ot G43.909 MIGRAINE, UNSP, NOT INTRACTABLE, WITHOUT 07/02/2019 MIKE COOPER MD Ot G44.209 TENSION-TYPE HEADACHE, UNSPECIFIED, NOT 07/02/2019 MIKE COOPER MD Ot H81.10 BENIGN PAROXYSMAL VERTIGO, UNSPECIFIED E 07/02/2019 MIKE COOPER MD Ot I10 ESSENTIAL (PRIMARY) HYPERTENSION 07/02/2019 MIKE COOPER MD Ot R42 DIZZINESS AND GIDDINESS 07/02/2019 MIKE COOPER MD Ot Z90.49 ACQUIRED ABSENCE OF OTHER SPECIFIED PART 07/02/2019 MIKE COOPER MD Ot Z90.89 ACQUIRED ABSENCE OF OTHER ORGANS 07/02/2019 MIKE COOPER MD Ot Z98.51 TUBAL LIGATION STATUS 2019 AMANDA PAREKH APRN Ot G50.1 ATYPICAL FACIAL PAIN 08/28/2019 GALO MATIAS MD Ot F17.210 NICOTINE DEPENDENCE, CIGARETTES, UNCOMPL 08/28/2019 GALO MATIAS MD Ot F41.9 ANXIETY DISORDER, UNSPECIFIED 08/28/2019 GALO MATIAS MD Ot G40.909 EPILEPSY, UNSP, NOT INTRACTABLE, WITHOUT 08/28/2019 GALO MATIAS MD Ot G43.909 MIGRAINE, UNSP, NOT INTRACTABLE, WITHOUT 08/28/2019 BRUEGGEMANN MD, GALO T Ot I10 ESSENTIAL (PRIMARY) HYPERTENSION 08/28/2019 GALO MATIAS MD T Ot R51 HEADACHE 08/28/2019 GALO MATIAS MD T Ot R53.1 WEAKNESS 08/28/2019 GALO MATIAS MD T Ot Z90.49 ACQUIRED ABSENCE OF OTHER SPECIFIED PART 08/28/2019 GALO MATIAS MD Ot Z90.89 ACQUIRED ABSENCE OF OTHER ORGANS 08/28/2019 GALO MATIAS MD Ot Z98.51 TUBAL LIGATION STATUS 09/03/2019 GALO MATIAS MD Ot F17.210 NICOTINE DEPENDENCE, CIGARETTES, UNCOMPL 09/03/2019 GALO MATIAS MD Ot F41.9 ANXIETY DISORDER, UNSPECIFIED 09/03/2019 GALO MATIAS MD Ot G40.909 EPILEPSY, UNSP, NOT INTRACTABLE, WITHOUT 09/03/2019 GALO MATIAS MD Ot G43.909 MIGRAINE, UNSP, NOT INTRACTABLE, WITHOUT 09/03/2019 FLORENCIO BUNCH, GALO T Ot I10 ESSENTIAL (PRIMARY) HYPERTENSION 09/03/2019 GALO MATIAS MD T Ot R51 HEADACHE 09/03/2019 GALO MATIAS MD T Ot R53.1 WEAKNESS 09/03/2019 GALO MATIAS MD Ot Z90.49 ACQUIRED ABSENCE OF OTHER SPECIFIED PART 09/03/2019 GALO MATIAS MD Ot Z90.89 ACQUIRED ABSENCE OF OTHER ORGANS 09/03/2019 GALO MATIAS MD Ot Z98.51 TUBAL LIGATION STATUS 09/05/2019 GALO MATIAS MD Ot F17.210 NICOTINE DEPENDENCE, CIGARETTES, UNCOMPL 09/05/2019 GALO MATIAS MD Ot F41.9 ANXIETY DISORDER, UNSPECIFIED 09/05/2019 GALO MATIAS MD Ot G40.909 EPILEPSY, UNSP, NOT INTRACTABLE, WITHOUT 09/05/2019 GALO MATIAS MD Ot G43.909 MIGRAINE, UNSP, NOT INTRACTABLE, WITHOUT 09/05/2019 GALO MATIAS MD T Ot I10 ESSENTIAL (PRIMARY) HYPERTENSION 09/05/2019 GALO MATIAS MD Ot R51 HEADACHE 09/05/2019 GALO MATIAS MD Ot R53.1 WEAKNESS 09/05/2019 GALO MATIAS MD Ot Z90.49 ACQUIRED ABSENCE OF OTHER SPECIFIED PART 09/05/2019 GALO MATIAS MD Ot Z90.89 ACQUIRED ABSENCE OF OTHER ORGANS 09/05/2019 GALO MATIAS MD Ot Z98.51 TUBAL LIGATION STATUS 10/02/2019 DELMAN DO, JAJA B Ot Z01.8 18 ENCOUNTER FOR OTHER PREPROCEDURAL EXAMIN 10/03/2019 DELMAN DO, JAJA B Ot Z01.8 18 ENCOUNTER FOR OTHER PREPROCEDURAL EXAMIN 10/08/2019 DELMAN DO, JAJA B Ot Z01.8 18 ENCOUNTER FOR OTHER PREPROCEDURAL EXAMIN 10/08/2019 AQUILINO PETERS MD Ot S43.491A OTHER SPRAIN OF RIGHT SHOULDER JOINT, IN 10/08/2019 AQUILINO PETERS MD Ot W19.XXXA UNSPECIFIED FALL, INITIAL ENCOUNTER 10/08/2019 JENNY BUNCH FACC, ALI FACP CCDS Ot E78.5 HYPERLIPIDEMIA, UNSPECIFIED 10/08/2019 JENNY BUNCH FACC, CONSTANTINE FACP CCDS Ot I51.7 CARDIOMEGALY 10/08/2019 JENNY BUNCH FACC, CONSTANTINE CAMPOVERDEP CCDS Ot R94.31 ABNORMAL ELECTROCARDIOGRAM [ECG] [EKG] 10/08/2019 JENNY BUNCH FACC, ALI FACP CCDS Ot Z72.0 TOBACCO USE 10/08/2019 AMANDA PAREKH APRN Ot G50.1 ATYPICAL FACIAL PAIN 10/09/2019 AQUILINO PETERS MD Ot S43.491A OTHER SPRAIN OF RIGHT SHOULDER JOINT, IN 10/09/2019 AQUILINO PETERS MD Ot W19.XXXA UNSPECIFIED FALL, INITIAL ENCOUNTER 10/09/2019 JENNY BUNCH FACC, ALI FACP CCDS Ot E78.5 HYPERLIPIDEMIA, UNSPECIFIED 10/09/2019 JENNY BUNCH FACC, ALI FACP CCDS Ot I51.7 CARDIOMEGALY 10/09/2019 JENNY BUNCH FACC, ALI FACP CCDS Ot R94.31 ABNORMAL ELECTROCARDIOGRAM [ECG] [EKG] 10/09/2019 JENNY BUNCH FACC, ALI FACP CCDS Ot Z72.0 TOBACCO USE 10/09/2019 AMANDA PAREKH APRN Ot G50.1 ATYPICAL FACIAL PAIN 10/09/2019 SUDHA DO, JAJA B Ot E78.5 HYPERLIPIDEMIA, UNSPECIFIED 10/09/2019 SUDHA DO, JAJA B Ot F17.2 10 NICOTINE DEPENDENCE, CIGARETTES, UNCOMPL 10/09/2019 SUDHA DO, JAJA B Ot I11.9 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 10/09/2019 SUDHA DO, JAJA B Ot M79.8 9 OTHER SPECIFIED SOFT TISSUE DISORDERS 10/09/2019 SUDHA ROSARIO, JAJA B Ot 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 10/09/2019 SUDHA ROSARIO, JAJA B Ot Z80.1 FAMILY HISTORY OF MALIG NEOPLASM OF TRAC 10/09/2019 SUDHA ROSARIO, JAJA B Ot Z88.5 ALLERGY STATUS TO NARCOTIC AGENT STATUS 10/09/2019 SUDHA ROSARIO, JAJA B Ot Z88.6 ALLERGY STATUS TO ANALGESIC AGENT STATUS 10/09/2019 SUDHA ROSARIO, JAJA B Ot Z90.8 9 ACQUIRED ABSENCE OF OTHER ORGANS 10/15/2019 AQUILINO PETERS MD Ot S43.491A OTHER SPRAIN OF RIGHT SHOULDER JOINT, IN 10/15/2019 AQUILINO PETERS MD Ot W19.XXXA UNSPECIFIED FALL, INITIAL ENCOUNTER 10/15/2019 JENNY BUNCH FACC, CONSTANTINE FACP CCDS Ot E78.5 HYPERLIPIDEMIA, UNSPECIFIED 10/15/2019 JENNY BUNCH FACC, ALI FACP CCDS Ot I51.7 CARDIOMEGALY 10/15/2019 JENNY BUNCH FACC, ALI FACP CCDS Ot R94.31 ABNORMAL ELECTROCARDIOGRAM [ECG] [EKG] 10/15/2019 JENNY BUNCH FACC, ALI FACP CCDS Ot Z72.0 TOBACCO USE 10/15/2019 AMANDA PAREKH APRN Ot G50.1 ATYPICAL FACIAL PAIN 10/15/2019 AQUILINO PETERS MD Ot Z12.31 ENCNTR SCREEN MAMMOGRAM FOR MALIGNANT NE 10/17/2019 SUDHA DO, JAJA B Ot E78.5 HYPERLIPIDEMIA, UNSPECIFIED 10/17/2019 DELMAN DO, JAJA B Ot F17.2 10 NICOTINE DEPENDENCE, CIGARETTES, UNCOMPL 10/17/2019 SUDHA ROSARIO, JAJA B Ot I11.9 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 10/17/2019 SUDHA ROSARIO, JAJA B Ot M79.8 9 OTHER SPECIFIED SOFT TISSUE DISORDERS 10/17/2019 SUDHA ROSARIO, JAJA B Ot 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 10/17/2019 SUDHA ROSARIO, JAJA B Ot Z80.1 FAMILY HISTORY OF MALIG NEOPLASM OF TRAC 10/17/2019 SUDHA ROSARIO, JAJA B Ot Z88.5 ALLERGY STATUS TO NARCOTIC AGENT STATUS 10/17/2019 SUDHA ROSARIO, JAJA B Ot Z88.6 ALLERGY STATUS TO ANALGESIC AGENT STATUS 10/17/2019 SUDHA ROSARIO, JAJA B Ot Z90.8 9 ACQUIRED ABSENCE OF OTHER ORGANS 10/18/2019 W E53.8 [facility] 10[facility]18/2019 W 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 [facility] 10/18/2019 W G43.709 Ch ronic migraine without aura, not intractable, without status migrainosus [facility] 10/18/2019 W I10 Essent ial (primary) hypertension [facility] 10/18/2019 W 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 [facility] 10/18/2019 W E53.8 B12 deficiency [facility] 10/18/2019 W I10 Essent ial (primary) hypertension [facility] 10/18/2019 W 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 [facility] 10/19/2019 SUDHA ROSARIO, JAJA B Ot E78.5 HYPERLIPIDEMIA, UNSPECIFIED 10/19/2019 SUDHA ROSARIO, JAJA B Ot F17.2 10 NICOTINE DEPENDENCE, CIGARETTES, UNCOMPL 10/19/2019 SUDHA ROSARIO, JAJA B Ot I11.9 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 10/19/2019 SUDHA ROSARIO, JAJA B Ot M79.8 9 OTHER SPECIFIED SOFT TISSUE DISORDERS 10/19/2019 SUDHA ROSARIO, JAJA B Ot 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 10/19/2019 SUDHA ROSARIO, JAJA B Ot Z80.1 FAMILY HISTORY OF MALIG NEOPLASM OF TRAC 10/19/2019 JAJA HALEY DO Ot Z88.5 ALLERGY STATUS TO NARCOTIC AGENT STATUS 10/19/2019 JAJA HALEY DO Ot Z88.6 ALLERGY STATUS TO ANALGESIC AGENT STATUS 10/19/2019 JAJA HALEY DO Ot Z90.8 9 ACQUIRED ABSENCE OF OTHER ORGANS 10/23/2019 FRAN BUNCH, AQUILINO Jensen Ot Z87.891 PERSONAL HISTORY OF NICOTINE DEPENDENCE 10/30/2019 FRAN BUNCH, AQUILINO Jensen Ot F17.210 NICOTINE DEPENDENCE, CIGARETTES, UNCOMPL 10/30/2019 FRAN BUNCH, AQUILINO Jensen Ot Z12.2 ENCNTR SCREEN FOR MALIGNANT NEOPLASM OF 10/31/2019 AQUILINO PETERS MD Ot F17.210 NICOTINE DEPENDENCE, CIGARETTES, UNCOMPL 10/31/2019 AQUILINO PETERS MD Ot Z12.2 ENCNTR SCREEN FOR MALIGNANT NEOPLASM OF 11/08/2019 AQUILINO PETERS MD Ot M50.31 OTHER CERVICAL DISC DEGENERATION, HIGH C 11/08/2019 FRAN BUNCH, AQUILINO Jensen Ot Z12.31 ENCNTR SCREEN MAMMOGRAM FOR MALIGNANT NE 11/08/2019 W E53.8 B12 deficiency [place] [place] 11/08/2019 W H81.13 Donnie ign paroxysmal positional vertigo, bilateral [place] [place] 11/08/2019 W M54.2 Trig ricci point with neck pain Fran, [place] 11/08/2019 W M60.811 Ot her myositis, right shoulder [facility], [place] 11/08/2019 W M60.812 Ot her myositis, left shoulder Fran, [place] 11/08/2019 W Z12.31 Enc ounter for screening mammogram for malignant neoplasm of breast [facility] [place] 11/11/2019 W E53.8 B12 deficiency [facility], [place] 11/11/2019 W H81.13 Donnie ign paroxysmal positional vertigo, bilateral Fran, [place] 11/11/2019 W M54.2 Trig ricci point with neck pain [place], [place] 11/11/2019 W M60.811 Ot her myositis, right shoulder Fran, [place] 11/11/2019 W M60.812 Ot her myositis, left shoulder [place], [place] 11/15/2019 W E53.8 B12 deficiency Aquilino [place] 12/04/2019 W G43.111 In tractable migraine with aura with status migrainosus Fran [place] 12/04/2019 W R11.0 Nausea Fran Aquilino 12/23/2019 W E53.8 B12 deficiency Fran [place] 01/21/2020 W D51.0 Mery min B12 deficiency anemia due to intrinsic factor deficiency Aquilino Peters Procedures There is no data. Results Test Result Range Complete blood count (CBC) with automate d white blood cell (WBC) differential - 06/07/19 17:30 Blood leukocytes automated count (number/volume) 6.8 10*3/uL 4.3-11.0 Blood erythrocytes automated count (number/volume) 4.24 10*6/uL 4.35-5.85 Venous blood hemoglobin measurement (mass/volume) 13.7 g/dL 11.5-16.0 Blood hematocrit (volume fraction) 42 % 35-52 Automated erythrocyte mean corpuscular volume 98 [ foz_us] 80-99 Automated erythrocyte mean corpuscular h emoglobin (mass per erythrocyte) 32 pg 25-34 Automated erythrocyte mean corpuscular h emoglobin concentration measurement (mass/volume) 33 g/dL 32-36 Automated erythrocyte distribution width ratio 13. 3 % 10.0- 14.5 Automated blood platelet count (count/volume) 416 10*3/uL 130-400 Automated blood platelet mean volume measurement 10.3 [foz_us] 7.4-10.4 Automated blood neutrophils/100 leukocytes 76 % 42-75 Automated blood lymphocytes/100 leukocytes 20 % 12-44 Blood monocytes/100 leukocytes 4 % 0-12 Automated blood eosinophils/100 leukocytes 0 % 0-10 Automated blood basophils/100 leukocytes 0 % 0-10 Blood neutrophils automated count (number/volume) 5.1 10*3 1.8-7.8 Blood lymphocytes automated count (number/volume) 1.4 10*3 1.0-4.0 Blood monocytes automated count (number/volume) 0. 3 10*3 0.0-1.0 Automated eosinophil count 0.0 10*3/uL 0 .0-0.3 Automated blood basophil count (count/volume) 0.0 10*3/uL 0.0-0.1 Comprehensive metabolic panel - 06/07/19 17:30 Serum or plasma sodium measurement (moles/volume) 141 mmol/L 135-145 Serum or plasma potassium measurement (moles/volume) 3.5 mmol/L 3.6-5.0 Serum or plasma chloride measurement (moles/volume) 108 mmol/L 98-107 Carbon dioxide 23 mmol/L 21-32 Serum or plasma anion gap determination (moles/volume) 10 mmol/L 5-14 Serum or plasma urea nitrogen measurement (mass/volume ) 14 mg/dL 7-18 Serum or plasma creatinine measurement (mass/volume) 0.68 mg/dL 0.60-1.30 Serum or plasma urea nitrogen/creatinine mass ratio 21 NRG Serum or plasma creatinine measurement w ith calculation of estimated glomerular filtration rate > NRG Serum or plasma glucose measurement (mass/volume) 95 mg/dL 70-105 Serum or plasma calcium measurement (mass/volume) 9.3 mg/dL 8.5-10.1 Serum or plasma total bilirubin measurement (mass/volu me) 0.5 mg/dL 0.1-1.0 Serum or plasma alkaline phosphatase yovanny surement (enzymatic activity/volume) 60 U/L 40-136 Serum or plasma aspartate aminotransfera se measurement (enzymatic activity/volume) 16 U/L 5-34 Serum or plasma alanine aminotransferase measurement (enzymatic activity/volume) 17 U/L 0-55 Serum or plasma protein measurement (mass/volume) 7.0 g/dL 6.4-8.2 Serum or plasma albumin measurement (mass/volume) 4.5 g/dL 3.2-4.5 CALCIUM CORRECTED 8.9 mg/dL 8.5-10.1 Magnesium - 06/07/19 17:30 Magnesium 2.1 mg/dL 1.6-2.4 Erythrocyte sedimentation rate by warren gren method - 06/07/19 17:30 Erythrocyte sedimentation rate by westergren method 5 mm 0- 30 Serum or plasma C reactive protein measu rement (mass/volume) - 06/07/19 17:30 Serum or plasma C reactive protein measurement (mass/v olume) 0.02 mg/dL 0.00-0.50 VITAMIN D 25-HYDROXY - 06/07/19 17:30 VITAMIN D 25-HYDROXY (TOTAL) 12.8 % 3 0.0-100.0 Complete blood count (CBC) with automate d white blood cell (WBC) differential - 07/02/19 14:21 Blood leukocytes automated count (number/volume) 5.3 10*3/uL 4.3-11.0 Blood erythrocytes automated count (number/volume) 4.41 10*6/uL 4.35-5.85 Venous blood hemoglobin measurement (mass/volume) 14.2 g/dL 11.5-16.0 Blood hematocrit (volume fraction) 43 % 35-52 Automated erythrocyte mean corpuscular volume 98 [ foz_us] 80-99 Automated erythrocyte mean corpuscular h emoglobin (mass per erythrocyte) 32 pg 25-34 Automated erythrocyte mean corpuscular h emoglobin concentration measurement (mass/volume) 33 g/dL 32-36 Automated erythrocyte distribution width ratio 12. 8 % 10.0- 14.5 Automated blood platelet count (count/volume) 421 10*3/uL 130-400 Automated blood platelet mean volume measurement 9.8 [foz_us] 7.4-10.4 Automated blood neutrophils/100 leukocytes 67 % 42-75 Automated blood lymphocytes/100 leukocytes 24 % 12-44 Blood monocytes/100 leukocytes 8 % 0-12 Automated blood eosinophils/100 leukocytes 0 % 0-10 Automated blood basophils/100 leukocytes 0 % 0-10 Blood neutrophils automated count (number/volume) 3.6 10*3 1.8-7.8 Blood lymphocytes automated count (number/volume) 1.3 10*3 1.0-4.0 Blood monocytes automated count (number/volume) 0. 4 10*3 0.0-1.0 Automated eosinophil count 0.0 10*3/uL 0 .0-0.3 Automated blood basophil count (count/volume) 0.0 10*3/uL 0.0-0.1 Whole blood basic metabolic panel - 06/21 10/09 14:21 Serum or plasma sodium measurement (moles/volume) 139 mmol/L 135-145 Serum or plasma potassium measurement (moles/volume) 3.5 mmol/L 3.6-5.0 Serum or plasma chloride measurement (moles/volume) 106 mmol/L 98-107 Carbon dioxide 24 mmol/L 21-32 Serum or plasma anion gap determination (moles/volume) 9 mmol/L 5-14 Serum or plasma urea nitrogen measurement (mass/volume ) 12 mg/dL 7-18 Serum or plasma creatinine measurement (mass/volume) 0.70 mg/dL 0.60-1.30 Serum or plasma urea nitrogen/creatinine mass ratio 17 NRG Serum or plasma creatinine measurement w ith calculation of estimated glomerular filtration rate > NRG Serum or plasma glucose measurement (mass/volume) 97 mg/dL 70-105 Serum or plasma calcium measurement (mass/volume) 9.4 mg/dL 8.5-10.1 Complete blood count (CBC) with automate d white blood cell (WBC) differential - 08/28/19 02:05 Blood leukocytes automated count (number/volume) 6.6 10*3/uL 4.3-11.0 Blood erythrocytes automated count (number/volume) 4.28 10*6/uL 4.35-5.85 Venous blood hemoglobin measurement (mass/volume) 14.3 g/dL 11.5-16.0 Blood hematocrit (volume fraction) 43 % 35-52 Automated erythrocyte mean corpuscular volume 100 [foz_us] 80-99 Automated erythrocyte mean corpuscular h emoglobin (mass per erythrocyte) 33 pg 25-34 Automated erythrocyte mean corpuscular h emoglobin concentration measurement (mass/volume) 33 g/dL 32-36 Automated erythrocyte distribution width ratio 14. 0 % 10.0- 14.5 Automated blood platelet count (count/volume) 429 10*3/uL 130-400 Automated blood platelet mean volume measurement 9.6 [foz_us] 7.4-10.4 Automated blood neutrophils/100 leukocytes 58 % 42-75 Automated blood lymphocytes/100 leukocytes 33 % 12-44 Blood monocytes/100 leukocytes 8 % 0-12 Automated blood eosinophils/100 leukocytes 1 % 0-10 Automated blood basophils/100 leukocytes 0 % 0-10 Blood neutrophils automated count (number/volume) 3.8 10*3 1.8-7.8 Blood lymphocytes automated count (number/volume) 2.2 10*3 1.0-4.0 Blood monocytes automated count (number/volume) 0. 5 10*3 0.0-1.0 Automated eosinophil count 0.1 10*3/uL 0 .0-0.3 Automated blood basophil count (count/volume) 0.0 10*3/uL 0.0-0.1 Whole blood basic metabolic panel - 04/09 02:05 Serum or plasma sodium measurement (moles/volume) 142 mmol/L 135-145 Serum or plasma potassium measurement (moles/volume) 4.4 mmol/L 3.6-5.0 Serum or plasma chloride measurement (moles/volume) 111 mmol/L 98-107 Carbon dioxide 18 mmol/L 21-32 Serum or plasma anion gap determination (moles/volume) 13 mmol/L 5-14 Serum or plasma urea nitrogen measurement (mass/volume ) 11 mg/dL 7-18 Serum or plasma creatinine measurement (mass/volume) 0.69 mg/dL 0.60-1.30 Serum or plasma urea nitrogen/creatinine mass ratio 16 NRG Serum or plasma creatinine measurement w ith calculation of estimated glomerular filtration rate > NRG Serum or plasma glucose measurement (mass/volume) 99 mg/dL 70-105 Serum or plasma calcium measurement (mass/volume) 8.6 mg/dL 8.5-10.1 Magnesium - 08/28/19 02:05 Magnesium 2.0 mg/dL 1.6-2.4 Methicillin resistant Staphylococcus aur eus (MRSA) screening culture - 10/09/19 07:30 Methicillin resistant Staphylococcus aureus (MRSA) scr eening culture NEG NRG Complete blood count (CBC) with automate d white blood cell (WBC) differential - 02/06/20 12:43 Blood leukocytes automated count (number/volume) 5.5 10*3/uL 4.3-11.0 Blood erythrocytes automated count (number/volume) 4.20 10*6/uL 4.35-5.85 Venous blood hemoglobin measurement (mass/volume) 13.4 g/dL 11.5-16.0 Blood hematocrit (volume fraction) 41 % 35-52 Automated erythrocyte mean corpuscular volume 98 [ foz_us] 80-99 Automated erythrocyte mean corpuscular h emoglobin (mass per erythrocyte) 32 pg 25-34 Automated erythrocyte mean corpuscular h emoglobin concentration measurement (mass/volume) 33 g/dL 32-36 Automated erythrocyte distribution width ratio 14. 0 % 10.0- 14.5 Automated blood platelet count (count/volume) 386 10*3/uL 130-400 Automated blood platelet mean volume measurement 10.0 [foz_us] 7.4-10.4 Automated blood neutrophils/100 leukocytes 63 % 42-75 Automated blood lymphocytes/100 leukocytes 29 % 12-44 Blood monocytes/100 leukocytes 6 % 0-12 Automated blood eosinophils/100 leukocytes 1 % 0-10 Automated blood basophils/100 leukocytes 0 % 0-10 Blood neutrophils automated count (number/volume) 3.5 10*3 1.8-7.8 Blood lymphocytes automated count (number/volume) 1.6 10*3 1.0-4.0 Blood monocytes automated count (number/volume) 0. 4 10*3 0.0-1.0 Automated eosinophil count 0.1 10*3/uL 0 .0-0.3 Automated blood basophil count (count/volume) 0.0 10*3/uL 0.0-0.1 Comprehensive metabolic panel - 02/06/20 12:43 Serum or plasma sodium measurement (moles/volume) 141 mmol/L 135-145 Serum or plasma potassium measurement (moles/volume) 3.6 mmol/L 3.6-5.0 Serum or plasma chloride measurement (moles/volume) 111 mmol/L 98-107 Carbon dioxide 20 mmol/L 21-32 Serum or plasma anion gap determination (moles/volume) 10 mmol/L 5-14 Serum or plasma urea nitrogen measurement (mass/volume ) 10 mg/dL 7-18 Serum or plasma creatinine measurement (mass/volume) 0.69 mg/dL 0.60-1.30 Serum or plasma urea nitrogen/creatinine mass ratio 14 NRG Serum or plasma creatinine measurement w ith calculation of estimated glomerular filtration rate > NRG Serum or plasma glucose measurement (mass/volume) 106 mg/dL 70-105 Serum or plasma calcium measurement (mass/volume) 9.0 mg/dL 8.5-10.1 Serum or plasma total bilirubin measurement (mass/volu me) 0.4 mg/dL 0.1-1.0 Serum or plasma alkaline phosphatase yovanny surement (enzymatic activity/volume) 64 U/L 40-136 Serum or plasma aspartate aminotransfera se measurement (enzymatic activity/volume) 19 U/L 5-34 Serum or plasma alanine aminotransferase measurement (enzymatic activity/volume) 14 U/L 0-55 Serum or plasma protein measurement (mass/volume) 6.9 g/dL 6.4-8.2 Serum or plasma albumin measurement (mass/volume) 4.4 g/dL 3.2-4.5 CALCIUM CORRECTED 8.7 mg/dL 8.5-10.1 Magnesium - 02/06/20 12:43 Magnesium 1.9 mg/dL 1.6-2.4 Serum or plasma troponin i.cardiac measu rement (mass/volume) - 02/06/20 12:43 Serum or plasma troponin i.cardiac measurement (mass/v olume) < ng/mL <0.028 Myoglobin, serum - 02/06/20 12:43 Myoglobin, serum 25.0 ng/mL 10.0-92.0 Serum or plasma lithium measurement (mol es/volume) - 02/06/20 12:43 BNP PT 33.5 pg/mL <100.0 PT panel in platelet poor plasma by coag ulation assay - 02/06/20 12:43 Prothrombin time (PT) in platelet poor plasma by coagu lation assay 13.8 s 12.2-14.7 INR in platelet poor plasma or blood by coagulation as say 1.0 0.8-1.4 Activated partial thromboplastin time (a PTT) in platelet poor plasma bycoagulation assay - 02/06/20 12:43 Activated partial thromboplastin time (a PTT) in platelet poor plasma bycoagulation assay 33 s 24-35 Encounters ACCT No. Visit Date/Time Discharge Status Pt. Type Provider Facility Loc./Unit Complaint [id number] 12/06/2018 12:52:58 12/06/2018 23:59:5 9 CLS Outpatient [id number] 10/25/2019 07:30:00 23:59:59 CLS Outpatient AQUILINO PETERS MD Via [facility] RAD LUNG SCREENING Z87.891 [id number] 10/18/2019 07:31:00 23:59:59 CLS Outpatient AQUILINO PETERS MD Via [facility] RAD CERVICAL SPINE PAIN,SC REENING [id number] 10/09/2019 07:03:00 11:28:00 DIS Outpatient JAJA HALEY DO Via [facility] MASS LEFT ARM [id number] 10/02/2019 05:37:00 09:58:00 DIS Outpatient JAJA HALEY DO Via [facility] PREOP LEFT ARM MASS [id number] 08/28/2019 01:59:00 04:29:00 DIS Emergency FLORENCIO BUNCH, GALO Rockwell Via [facility] ER ESTRELLA,LEFT SIDED W EAKNESS [id number] 07/02/2019 12:16:00 16:30:00 DIS Emergency MIKE COOPER MD Via [facility] ER DIZZINESS;HEAD PAIN;NAUSEA [id number] 06/14/2019 08:17:00 23:59:59 CLS Outpatient AMANDA PAREKH APRN Via [facility] RAD HEADACHE, R [facility] N [id number] 06/07/2019 15:52:00 19:22:00 DIS Emergency FLORENCIO BUNCH, GALO Rockwell Via [facility] ER HEADACHE [id number] 02/21/2019 19:36:00 22:25:00 DIS Emergency ANGE KELLEY MD Via [facility] ER MIGRAINE HEADACHE [id number] 01/18/2019 08:22:00 23:59:59 CLS Outpatient JENNY BUNCH FACC, CONSTANTINE HAIRSTON CC DS Via [facility] CARD ABN EKG [id number] 01/01/2019 07:17:00 23:59:59 CLS Outpatient AQUILINO PETERS MD Via [facility] RAD R ROTATOR CUFF TEAR [id number] 02/06/2020 12:51:00 Document Registration
== END 2020-02-06 13:55 | disposition home or self-care (01) ==
LOC: EDUNIT# 12:22 → ER 12:23
DX: R42 Dizziness and giddiness (principal); H74.8X1 Other specified disorders of right middle ear and mastoid; I10 Essential (primary) hypertension; G40.909 Epilepsy, unspecified, not intractable, without status epilepticus; G43.909 Migraine, unspecified, not intractable, without status migrainosus; Z88.5 Allergy status to narcotic agent; Z88.6 Allergy status to analgesic agent; Z77.22 Contact with and (suspected) exposure to environmental tobacco smoke (acute) (chronic)
CPT/HCPCS: 36415; 70450; 71045; 80053; 83735; 83874; 83880; 84484; 85025; 85610; 85730; 93005; 93041

== ENCOUNTER → 2020-02-12 | Outpatient (CLI) | payer MEDICARE, MEDICAID ==
[~2020-02-12] MED LIST changes: +AMOX-358 PO; +PRD20T PO
--- NOTE | 2020-02-12 08:34 | Diagnostic Imaging Report ---
PROCEDURE: CT abdomen and pelvis without contrast. TECHNIQUE: Multiple contiguous axial images were obtained through the abdomen and pelvis without the use of intravenous contrast. Auto Exposure Controls were utilized during the CT exam to meet ALARA standards for radiation dose reduction. INDICATION: Right upper quadrant pain for one month. No prior studies are available for comparison. The lung bases are clear. No discrete liver mass is detected. Gallbladder is unremarkable. No biliary ductal dilatation is identified. The pancreas and spleen are unremarkable. No adrenal mass is detected. No definite renal calculi or hydronephrosis is identified. Aorta is non-aneurysmal. The small and large bowel loops are normal caliber. No obstruction is identified. There is no free fluid or fluid collection. Bladder is decompressed. Uterus is unremarkable. No definite abdominal or pelvic lymphadenopathy is detected. The bony structures are nonacute. IMPRESSION: Unremarkable CT of the abdomen and pelvis without contrast. No acute abnormality is detected. Dictated by: Dictated on workstation # [id number]
== END ==
LOC: RAD 07:37
PROVIDERS: ATTEND Family Medicine
DX: R10.11 Right upper quadrant pain (principal)
CPT/HCPCS: 74176

== ENCOUNTER 2020-04-04 13:55 | Emergency (ER) | payer MEDICARE, MEDICAID ==
[~2020-04-04] VITALS: Ht 152.4 cm; Wt 59.0 kg
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
[2020-04-04] MEDS ORDERED: KETOROLAC 30 MG/ML VIAL IVP STA (14:14)
[2020-04-04] MEDS ORDERED: MECLIZINE 25 MG (ANTIVERT) TAB PO ONE (14:15)
[2020-04-04] MEDS ORDERED: diphenhydrAMINE 50 MG/ML INJ (BENADRYL) IVP ONE (14:15)
[2020-04-04] MEDS ORDERED: PROCHLORPERAZINE 10 MG/2ML INJ (COMPAZINE) IV ONE (14:15)
[2020-04-04] MEDS ORDERED: NS IV 1000 ML 1,000 ML IV SCH (14:17)
--- NOTE | 2020-04-04 14:25 | ED Syncope ---
General Chief Complaint: Dizziness/Syncope Stated Complaint: LIGHT HEADED Nursing Triage Note: AMB TO ROOM WITH OUT PROBLEM REPORTS WAS AT WORK YESTERDAY.BECAME DIZZY WITH HEADACHE ABOUT 345 WENT HOME AND GOT BETTER ,BUT THIS AM WOKE UP WITH HEADACHE.. WENT TO WORK.AND SYMPTOMS CAME BACK WENT TO [facility] AND WAS TOLD TO COME TO ED. 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 History of Present Illness Date Seen by Provider: Apr 04, 2020 Time Seen by Provider: 14:05 Initial Comments 59-year-old female presents for dizziness and headache. She has chronic migraines without aura. She is receiving Botox injections approximately every 3 months by her neurologist in [place]. She is on migraine medication. Her symptoms began yesterday while at work, she went home took medications and rested and felt improved this morning. After returning to work today, her symptoms began again. She denies any difficulty with speech, no confusion, no weakness in extremities, no paresthesias or radicular symptoms. She has not taken any of her migraine medication today. She denies any nausea or vomiting. She is not having chest pain or shortness of air. She was seen in this ED for similar symptoms last month. Timing/Prior Episodes: Recent History (January 2020) Symptoms Prior to Episode: Nausea Precipitating Factors: None Loss of Consciousness: No Loss of Consciousness Current Symptoms: No Blurred Vision, No Chest Pain, No Diaphoresis; Dizziness, Headache; No Injury, No Lightheadedness, No Loss of Bladder Control, No Loss of Bowel Control, No Motionless; Nausea; No Pale, No Shallow/Rapid Breathing, No Weak/Absent Pulse, No Weakness Allergies and Home Medications Allergies Coded Allergies: acetaminophen (Verified Allergy, Severe, N/V, BREATHING DIFFICULTIES, 02/06/20) codeine (Verified Allergy, Severe, N/V, BREATHING DIFFICULTIES, 02/06/20) oxycodone (Verified Allergy, Severe, N/V, BREATHING DIFFICULTIES, 02/06/20) Home Medications Amlodipine Besylate 2.5 Mg Tablet, 2.5 MG PO DAILY, (Reported) Amoxicillin/Potassium Clav 1 Each Tablet, 1 EACH PO BID Prescribed by: KENDRA SCOTT on 02/06/20 3142 Cholecalciferol (Vitamin D3) 2,000 Unit Tablet, 2,000 UNIT PO DAILY, (Reported) Cyanocobalamin 1,000 Mcg/Ml Inj, 1,000 MCG IM MONTHLY, (Reported) Cyanocobalamin (Vitamin B-12) 2,500 Mcg Tab.chew, 2,500 MCG PO DAILY, (Reported) Cyclobenzaprine HCl 10 Mg Tablet, 10 MG PO Q8H PRN for SPASMS Prescribed by: GALO EVERETT on 06/07/191915 Gabapentin 300 Mg Capsule, 300 MG PO HS, (Reported) Galcanezumab-Gnlm 120 Mg/1 Ml Pen.injctr, 120 MG IM MONTHLY, (Reported) Meclizine HCl 25 Mg Tablet, 25 MG PO TID Prescribed by: KENDRA SCOTT on 02/06/20 1342 Ondansetron 4 Mg Tab.rapdis, 4 MG SL Q4H PRN for NAUSEA/VOMITING Prescribed by: GALO EVERETT on 08/28/19412 Prednisone 20 Mg Tab, 40 MG PO DAILY Prescribed by: KENDRA SCOTT on 02/06/20 134 Topiramate 50 Mg Tablet, 50 MG PO HS, (Reported) Patient Home Medication List Home Medication List Reviewed: Yes Review of Systems Constitutional: see HPI; No chills, No diaphoresis; dizziness; No fever, No weakness EENTM: see HPI, no symptoms reported; No blurred vision, No double vision Respiratory: no symptoms reported, see HPI; No cough, No dyspnea on exertion, No short of breath Cardiovascular: no symptoms reported, see HPI Gastrointestinal: see HPI; No abdominal pain, No constipation, No diarrhea; nausea; No vomiting Genitourinary: no symptoms reported, see HPI Musculoskeletal: no symptoms reported, see HPI; No back pain, No neck pain Psychiatric/Neurological: Headache (Right posterior) All Other Systems Reviewed Negative Unless Noted: Yes Past Dxadjvr-Uerghr-Dtyvac Hx Past Med/Social Hx: Reviewed Nursing Past Med/Soc Hx Patient Social History Type Used: Cigarettes 2nd Hand Smoke Exposure: Yes Recent Foreign Travel: No Contact w/Someone Who Travel: No Recent Infectious Disease Expo: No Recent Hopitalizations: No Immunizations Up To Date PED Vaccines UTD: No Date of Influenza Vaccine: May 27, 2019 Seasonal Allergies Seasonal Allergies: Yes Past Medical History Surgeries: Yes (KNEE, SHOULDER) Appendectomy, Orthopedic, Tonsillectomy Respiratory: No Currently Using CPAP: No Currently Using BIPAP: No Cardiac: Yes Hypertension 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) Headaches /Migraines, Seizure Disorder Reproductive Disorders: No [employer]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, 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 Sexually Transmitted Disease: No HIV/AIDS: No Genitourinary: No Gastrointestinal: No Musculoskeletal: Yes (NECK) Arthritis Endocrine: Yes (vitamin D deficiency) HEENT: Yes (GLASSES) Loss of Vision: Denies Hearing Impairment: Denies Cancer: No Psychosocial: Yes Anxiety Integumentary: No Blood Disorders: No Adverse Reaction/Blood Tranf: No (N/A) Family Medical History No Pertinent Family Hx Physical Exam Vital Signs Vital Signs - First Documented 04/04/20 13:58 Temp 36.7 Pulse 64 Resp 18 B/P (MAP) 122/87 (99) Pulse Ox 98 O2 Delivery Room Air Capillary Refill : Less Than 3 Seconds Height, Weight, BMI Height: 5'2.00" Weight: 130lbs. oz. 58.967500pn; 25.00 BMI Method:Estimated General Appearance: No Apparent Distress NIH 0 Progress/Results/Core Measures Results/Orders Lab Results Laboratory Tests Test 04/04/20 14:08 04/04/20 15:14 Range/Units Glucometer 94 70-110 MG/DL White Blood Count 5.1 4.3-11.0 10^3/uL Red Blood Count 4.23 L 4.35-5.85 10^6/uL Hemoglobin 13.5 11.5-16.0 G/DL Hematocrit 41 35-52 % Mean Corpuscular Volume 97 80-99 FL Mean Corpuscular Hemoglobin 32 25-34 PG Mean Corpuscular Hemoglobin Concent 33 32-36 G/DL Red Cell Distribution Width 12.6 10.0-14.5 % Platelet Count 324 130-400 10^3/uL Mean Platelet Volume 9.9 7.4-10.4 FL Neutrophils (%) (Auto) 62 42-75 % Lymphocytes (%) (Auto) 28 12-44 % Monocytes (%) (Auto) 8 0-12 % Eosinophils (%) (Auto) 2 0-10 % Basophils (%) (Auto) 0 0-10 % Neutrophils # (Auto) 3.2 1.8-7.8 X 10^3 Lymphocytes # (Auto) 1.4 1.0-4.0 X 10^3 Monocytes # (Auto) 0.4 0.0-1.0 X 10^3 Eosinophils # (Auto) 0.1 0.0-0.3 10^3/uL Basophils # (Auto) 0.0 0.0-0.1 10^3/uL Sodium Level 140 135-145 MMOL/L Potassium Level 3.5 L 3.6-5.0 MMOL/L Chloride Level 111 H 98-107 MMOL/L Carbon Dioxide Level 21 21-32 MMOL/L Anion Gap 8 5-14 MMOL/L Blood Urea Nitrogen 11 7-18 MG/DL Creatinine 0.71 0.60-1.30 MG/DL Estimat Glomerular Filtration Rate > 60 BUN/Creatinine Ratio 15 Glucose Level 90 70-105 MG/DL Calcium Level 8.4 L 8.5-10.1 MG/DL Corrected Calcium 8.4 L 8.5-10.1 MG/DL Total Bilirubin 0.4 0.1-1.0 MG/DL Aspartate Amino Transf (AST/SGOT) 16 5-34 U/L Alanine Aminotransferase (ALT/SGPT) 12 0-55 U/L Alkaline Phosphatase 58 40-136 U/L Troponin I < 0.028 <0.028 NG/ML Total Protein 6.4 6.4-8.2 GM/DL Albumin 4.0 3.2-4.5 GM/DL My Orders Orders - KANCHAN JACKSON Accucheck Stat ONCE (04/04/20 13:59) Ketorolac Injection (Toradol Injection) (04/04/20 14:14) Prochlorperazine Injection (Compazine In (04/04/20 14:15) Diphenhydramine Injection (Benadryl Inje (04/04/20 14:15) Ekg Tracing (04/04/20 14:14) Meclizine Tablet (Antivert Tablet) (04/04/20 14:15) Cbc With Automated Diff (04/04/20 14:14) Comprehensive Metabolic Panel (04/04/20 14:14) Ed Iv/Invasive Line Start (04/04/20 14:17) Ns Iv 1000 Ml (Sodium Chloride 0.9%) (04/04/20 14:17) Troponin I (04/04/20 14:25) Medications Given in ED Current Medications Medications Dose Ordered Sig/Kate Route Start Time Stop Time Status Last Admin Dose Admin Diphenhydramine HCl 25 mg ONCE ONCE IVP 04/04/20 14:15 04/04/20 14:18 DC 04/04/20 14:43 25 MG Meclizine HCl 25 mg ONCE ONCE PO 04/04/20 14:15 04/04/20 14:18 DC 04/04/20 14:30 25 MG Prochlorperazine Edisylate 10 mg ONCE ONCE IV 04/04/20 14:15 04/04/20 14:18 DC 04/04/20 14:45 10 MG Vital Signs/I&O 04/04/20 13:58 Temp 36.7 Pulse 64 Resp 18 B/P (MAP) 122/87 (99) Pulse Ox 98 O2 Delivery Room Air Blood Pressure Mean: 99 FSBG Bedside Testing Finger Stick Blood Glucose: 94 Blood Glucose Action Taken: Dr. Jackson notified. Progress Progress Note : Time: 14:05 Progress Note Patient seen and evaluated, will obtain labs, normal saline 1 L per IV, and EKG. Accu-Chek 94. Will give meclizine 25 mg by mouth for dizziness, Toradol 30 mg IV for pain, Compazine 10 mg for nausea. And Benadryl [address], patient refuses to have CT, multiple in the past and concerned about radiation exposure. At this time, no indication for CT. No facial drooping, NIH 0. Steady Gait. 1500 patient reports improvement in her symptoms. IV infusing. 1535 patient continues to report improvement in her symptoms. Awaiting lab results. 1550 Labs essentially normal. Discharge instructions and return caution reviewed with the patient. All questions answered Initial ECG Impression Date: Apr 04, 2020 Initial ECG Impression Time: 14:15 Initial ECG Rate: 50 Initial ECG Rhythm: Normal Sinus Initial ECG Intervals: Normal Initial ECG Intervals HI 150, QRSD 106, QTC 453, QTC 414. Wilmot P -14, QRS -16, T 0 Initial ECG Impression: Normal Initial ECG Comparisson: Unchanged Departure Impression Primary Impression: Migraine Qualified Codes: G43.009 - Migraine without aura, not intractable, without status migrainosus Additional Impression: Vertigo Disposition: 01 HOME, SELF-CARE Condition: Improved Departure-Patient Inst. Decision time for Depature: 15:45 Referrals: AQUILINO BRUCE MD (PCP/Family) Primary Care Physician Patient Instructions: Vertigo (a Type of Dizziness) (DC), Migraines (DC) Add. Discharge Instructions: Continue to take your migraine medication as needed. Increase water intake, 16 ounces every 2-3 hours while awake. Follow-up with your primary care provider if symptoms are not improving or worsen. Do not drive if you are having dizziness or feeling weak. Return to the emergency department for new, urgent health care needs. All discharge instructions reviewed with patient and/or family. Voiced understanding. Copy Copies To 1: AQUILINO BRUCE MD, AMY ARNP Apr 04, 2020 14:25
--- NOTE | 2020-04-04 15:16 | NUR ---
HEADACHE IMPROVED NO LONGER DIZZY.
[2020-04-04 15:21] LABS: BASOPHILS % (AUTO) 0 % (0-10); EOSINOPHILS # (AUTO) 0.1 10^3/uL (0.0-0.3); EOSINOPHILS % (AUTO) 2 % (0-10); HEMATOCRIT 41 % (35-52); HEMOGLOBIN 13.5 G/DL (11.5-16.0); LYMPHOCYTES # (AUTO) 1.4 X 10^3 (1.0-4.0); LYMPHOCYTES % (AUTO) 28 % (12-44); MEAN CORPUSCULAR HEMOGLOBIN 32 PG (25-34); MEAN CORPUSCULAR HGB CONC 33 G/DL (32-36); MEAN CORPUSCULAR VOLUME 97 FL (80-99); MEAN PLATELET VOLUME 9.9 FL (7.4-10.4); MONOCYTES # (AUTO) 0.4 X 10^3 (0.0-1.0); MONOCYTES % (AUTO) 8 % (0-12); NEUTROPHILS # (AUTO) 3.2 X 10^3 (1.8-7.8); NEUTROPHILS % (AUTO) 62 % (42-75); PLATELET COUNT 324 10^3/uL (130-400); RED CELL DISTRIBUTION WIDTH 12.6 % (10.0-14.5); WHITE BLOOD COUNT 5.1 10^3/uL (4.3-11.0)
[2020-04-04 15:34] LABS: CHLORIDE 111 MMOL/L (98-107); POTASSIUM 3.5 MMOL/L (3.6-5.0); SODIUM 140 MMOL/L (135-145)
[2020-04-04 15:35] LABS: CALCIUM 8.4 MG/DL (8.5-10.1)
[2020-04-04 15:36] LABS: GLUCOSE 90 MG/DL (70-105); TOTAL PROTEIN 6.4 GM/DL (6.4-8.2)
[2020-04-04 15:37] LABS: CARBON DIOXIDE 21 MMOL/L (21-32)
[2020-04-04 15:38] LABS: BILIRUBIN,TOTAL 0.4 MG/DL (0.1-1.0)
[2020-04-04 15:40] LABS: ALKALINE PHOSPHATASE 58 U/L (40-136); CREATININE SERUM 0.71 MG/DL (0.60-1.30); GFR ESTIMATED > 60
[2020-04-04 15:41] LABS: BUN/CREATININE RATIO 15
[2020-04-04 15:43] LABS: ALANINE AMINOTRANSFERASE 12 U/L (0-55)
[2020-04-04 16:06] VITALS: BP 126/75
== END 2020-04-04 16:06 | disposition home or self-care (01) ==
LOC: EDUNIT# 13:55 → ER 13:56
DX: G43.909 Migraine, unspecified, not intractable, without status migrainosus (principal); R42 Dizziness and giddiness; G40.909 Epilepsy, unspecified, not intractable, without status epilepticus; I10 Essential (primary) hypertension; Z77.22 Contact with and (suspected) exposure to environmental tobacco smoke (acute) (chronic); Z79.52 Long term (current) use of systemic steroids
CPT/HCPCS: 36415; 80053; 82962; 84484; 85025; 93005

== ENCOUNTER → 2020-05-13 | Outpatient (CLI) | payer MEDICARE, MEDICAID ==
--- NOTE | 2020-05-13 10:38 | Diagnostic Imaging Report ---
INDICATION: Right lower quadrant pain for 2 weeks. TIME OF EXAM: 10:04 AM. FINDINGS: The bowel gas pattern is nonobstructed. No pathologic calcifications are seen. No definite free air on this single view is identified. IMPRESSION: No acute abnormality is detected. Dictated by: Dictated on workstation # [id number]
== END ==
LOC: RAD 09:58
PROVIDERS: ATTEND Nurse Practitioner Family
DX: R10.31 Right lower quadrant pain (principal)
CPT/HCPCS: 74018

== ENCOUNTER → 2020-12-25 | Outpatient (CLI) | payer MEDICARE, MEDICAID ==
--- NOTE | 2020-12-25 18:37 | Diagnostic Imaging Report ---
INDICATION: Routine screening. COMPARISON is made with prior mammograms from 10/18/2019 and 09/05/2017. 2-D and 3-D bilateral screening mammography was performed with CAD. Both breasts are heterogeneously dense, limiting the sensitivity of mammography. No mass or malignant appearing microcalcifications are seen. Benign parenchymal and vascular calcifications are noted bilaterally. Axillae are unremarkable. IMPRESSION: BI-RADS Category 2 No mammographic features suspicious for malignancy are identified. Dictated by: Dictated on workstation # [id number]
== END ==
LOC: RAD 09:00
PROVIDERS: ATTEND Nurse Practitioner Family
DX: Z12.31 Encounter for screening mammogram for malignant neoplasm of breast (principal)
CPT/HCPCS: 77063; 77067

== ENCOUNTER → 2020-12-28 | Outpatient (CLI) | payer MEDICARE, MEDICAID ==
--- NOTE | 2020-12-28 16:02 | Diagnostic Imaging Report ---
EXAMINATION: CT chest without contrast (lung screening). TECHNIQUE: Multiple contiguous axial images were obtained through the chest without the use of intravenous contrast according to lung cancer screening protocol. All CT scans use one or more of the following dose optimizing techniques: automated exposure control, MA and/or KvP adjustment based on patient size and exam type or iterative reconstruction. HISTORY: 62 pack year history of smoking. COMPARISON: 10/25/2019. FINDINGS: There is no edema or pneumonia. No pleural effusion. No pneumothorax. No suspicious nodules. There is no axillary or supraclavicular lymphadenopathy. There is no mediastinal lymphadenopathy. Heart size is normal. There are no coronary artery calcifications. No pericardial effusion. Aorta is normal in caliber. Limited views of the upper abdomen are unremarkable. There are no suspicious osseous lesions. IMPRESSION: 1. No suspicious pulmonary nodules. LUNG-RADS CATEGORY: 1 MODIFIER: None. Dictated by: Dictated on workstation # [id number]
== END ==
LOC: RAD 13:23
PROVIDERS: ATTEND Nurse Practitioner Family
DX: Z12.2 Encounter for screening for malignant neoplasm of respiratory organs (principal); F17.210 Nicotine dependence, cigarettes, uncomplicated
CPT/HCPCS: 71271

== ENCOUNTER 2021-02-12 05:34 | Outpatient (RCR) | payer MEDICARE, MEDICAID ==
[~2021-02-12] VITALS: Ht 182.9 cm; Wt 56.4 kg
[~2021-02-12 05:34] MED LIST changes: +IBUP-1780 PO; +MELA10TA2 PO; +PANT40TA2 PO; +ZOLP5TAB PO
[2021-02-15] MEDS ORDERED: TRAM1TAB7 PO (13:37)
[2021-02-15] MEDS ORDERED: CEPH500C PO (13:37)
== END 2021-02-12 10:23 | disposition home or self-care (01) ==
LOC: PREOP 05:34
PROVIDERS: ATTEND Podiatrist Foot & Ankle Surgery
DX: Z01.812 Encounter for preprocedural laboratory examination (principal); M20.12 Hallux valgus (acquired), left foot; M89.372 Hypertrophy of bone, left ankle and foot; M20.42 Other hammer toe(s) (acquired), left foot; D36.13 Benign neoplasm of peripheral nerves and autonomic nervous system of lower limb, including hip; Z20.822 Contact with and (suspected) exposure to COVID-19
CPT/HCPCS: 87635

== ENCOUNTER 2021-02-15 08:07 | Day surgery (SDC) | payer MEDICARE, MEDICAID ==
[2021-02-15] VITALS (11 sets, daily range): BP systolic 111–134; BP diastolic 60–96
[~2021-02-15] VITALS: Ht 186.9 cm; Wt 56.4 kg
[2021-02-15] MEDS ORDERED: ceFAZolin INJECTION 1,000 MG in WATER (STERILE) FOR INJECTION 10 ML IV ONE (08:30)
[2021-02-15] MEDS: LACTATED RINGERS 1,000 ML IV PRN ×2 (08:46→12:55)
[2021-02-15] MEDS ORDERED: BUPIVACAINE 0.5% 30 ML (SENSORCAINE) VIAL ONE (09:17)
[2021-02-15] MEDS ORDERED: LIDOCAINE 1% INJ 20 ML 20 ML VIAL ONE (09:17)
[2021-02-15] MEDS ORDERED: ONDANSETRON 4 MG/2 ML (SDV) Z0FRAN ONE ×2 (09:31→14:43)
[2021-02-15] MEDS ORDERED: proPOfol 200 MG/20 ML (DIPRIVAN) VIAL IV ONE (09:31)
[2021-02-15] MEDS ORDERED: SEVOFLURANE (ULTANE) 15 ML INHAL SOLN ONE ×2 (09:31→13:12)
[2021-02-15] MEDS ORDERED: fentaNYL INJ 100 MCG/2 ML AMP ONE (09:31)
[2021-02-15] MEDS ORDERED: LIDOCAINE PF 2% 5 ML (XYLOCAINE) VIAL ONE (09:31)
[2021-02-15] MEDS ORDERED: MIDAZOLAM 2 MG/2 ML (VERSED) VIAL ONE (09:32)
[2021-02-15] MEDS ORDERED: HYDROmorphone 2 MG/ML VIAL (DILAUDID) ONE (12:54)
--- NOTE | 2021-02-15 13:28 | Anesthesia-General Post-Op ---
General Patient Condition Mental Status/LOC: Same as Preop Cardiovascular: Satisfactory Nausea/Vomiting: Absent Respiratory: Satisfactory Pain: Controlled Complications: Absent Post Op Complications Complications None Follow Up Care/Instructions Patient Instructions None needed. Anesthesia/Patient Condition Patient Condition Patient is doing well, no complaints, stable vital signs, no apparent adverse anesthesia problems. No complications reported per nursing. YANG ANN CRNA Feb 15, 2021 13:28
[2021-02-15] MEDS ORDERED: fentaNYL INJ 100 MCG/2 ML AMP IVP ONE (13:30)
[2021-02-15] MEDS ORDERED: HYDROmorphone 2 MG/ML VIAL (DILAUDID) IV ONE (13:30)
--- NOTE | 2021-02-15 13:30 | Progress Note-Pre Operative ---
Pre-Operative Progress Note H&P Reviewed The H&P was reviewed, patient examined and no changes noted. Date Seen by Provider: Feb 15, 2021 Time Seen by Provider: 10:00 Date H&P Reviewed: Feb 15, 2021 Time H&P Reviewed: 10:00 Pre-Operative Diagnosis: Hallux valgus, hypertrophic 2nd metatarsal, hammertoes, neuroma, left foot SHIRAZ MALDONADO DPM Feb 15, 2021 13:30
--- NOTE | 2021-02-15 13:31 | Progress Note-Post Operative ---
Post-Operative Progess Note Surgeon (s)/Clinical Instructor (s) Surgeon SHIRAZ MALDONADO DPM Clinical Instructor: none Pre-Operative Diagnosis Hallux valgus, hypertrophic 2nd metatarsal, hammertoes, neuroma, left foot Post-Operative Diagnosis same Procedure & Operative Findings Date of Procedure 02/15/21 Procedure Performed/Findings Lapidus bunionectomy, left 2nd metatarsal osteotomy, left Anesthesia Type general Estimated Blood Loss Estimated blood loss (mL): minimal Specimens/Packing Specimens Removed osteophyte, left 2nd MTPJ SHIRAZ MALDONADO DPM Feb 15, 2021 13:31
[2021-02-15] MEDS: ONDANSETRON 4 MG/2 ML (SDV) Z0FRAN IVP PRN ×2 (13:36→13:58)
[2021-02-15] MEDS ORDERED: TRAM1TAB7 PO (13:37)
[2021-02-15] MEDS ORDERED: CEPH500C PO (13:37)
[2021-02-15] MEDS ORDERED: LACTATED RINGERS 1,000 ML IV SCH (13:45)
--- NOTE | 2021-02-15 14:19 | Diagnostic Imaging Report ---
INDICATION: Left foot surgery AP and lateral views of the left foot are obtained. There are postoperative findings within the medial foot with medial fixed ____ plate across the first tarsometatarsal joint and screw transfixing the bases of the first and second metatarsals. Cerclage wire and screws are also present at the proximal base of the first proximal phalanx and in the distal shaft of the second metatarsal. No surgical complication is identified. IMPRESSION: Left foot arthrodesis without complication detected. Dictated by: Dictated on workstation # [id number]
[2021-02-15] MEDS ORDERED: ONDANSETRON 4 MG/2 ML (SDV) Z0FRAN IVP ONE (14:45)
--- NOTE | 2021-02-15 16:13 | Physical Therapy Progress Note ---
Therapy Progress Note Attempted evaluation but patient ultimately refused. Patient states she has used crutches before, and was aware of her NWB on the left foot. Patient was shown ankle pumps to do at home. Patient was very nauseated, throwing up. After a time she was able to sit on the side of the bed but could not stand without getting dizzy and nauseated. Eventually chelonet refused, she was educated on the purpose of the PT eval but continued to refuse. VIET BROOKS PT Feb 15, 2021 16:13
--- NOTE | 2021-02-15 16:46 | Diagnostic Imaging Report ---
INDICATION: Osteotomy. IMPRESSION: 16 seconds of fluoroscopy was used. Two images were obtained which show changes of osteotomy involving the proximal 1st metatarsal. There is satisfactory alignment. Dictated by: Dictated on workstation # [id number]
--- NOTE | 2021-02-15 17:13 | OPERATIVE REPORT ---
DATE OF SERVICE: 02/15/2021 SURGEON: Collette Maldonado DPM. PREOPERATIVE DIAGNOSES: 1. Hallux abductovalgus metatarsal primus varus, left foot. 2. Hypertrophic second metatarsal head. 3. Hammer digit syndrome 2, 3, 4 and 5, and neuroma, third intermetatarsal space, all left foot. POSTOPERATIVE DIAGNOSES: 1. Hallux abductovalgus metatarsal primus varus, left foot. 2. Hypertrophic second metatarsal head. 3. Hammer digit syndrome 2, 3, 4 and 5, and neuroma, third intermetatarsal space, all left foot. PROCEDURES PERFORMED: 1. Lapidus bunionectomy with Kartik osteotomy. 2. Second metatarsal osteotomy, left foot. WOUND CLASS: Clean. ANESTHESIA: General. HEMOSTASIS: Pneumatic thigh tourniquet at 250 mmHg. INDICATIONS: This 60-year-old female presents complaining of a painful left foot. Conservative therapy is met with unsatisfactory results and the patient is agreeable to surgical intervention after risks and complications were discussed at length. No guarantees were extended to the patient and she is willing to proceed. DESCRIPTION OF PROCEDURE: The patient was brought back to the operating table, placed in secure supine position. Appropriate timeout was performed. Pneumatic thigh tourniquet was placed over the left lower extremity over several layers of padding. Anesthesia was achieved utilizing with 10 mL of 0.5% Marcaine injected in a Jc block as well as a block to the second ray. The left foot was then prepped and draped in normal sterile manner. The left foot was then elevated and allowed to exsanguinate after which the tourniquet was inflated to 250 mmHg. Attention was then directed to the dorsal aspect of the left first metatarsal cuneiform joint area where a 5 cm longitudinal linear incision was created. The incision was deepened in the same plane with great care to identify and retract all vital neurovascular structures. The incision was made just medial to the extensor hallucis longus tendon. The incision was continued down to the capsular tissue where a longitudinal capsulotomy was performed exposing the articular cartilage of the base of the first metatarsal and distal medial cuneiform. Next, utilizing standard technique associated with the [facility], the cut was utilized to resect the base of the first metatarsal as well as the distal articulation to the medial cuneiform. Next, a stab incision was created to the lateral aspect of the second metatarsal and a clamp was applied allowing for reduction of the intermetatarsal angle. Once this was done, the second bone cut, which was the proximal cut associated with the cuneiform was made. This allowed for excellent reduction of the IM angle. Next, a 4-hole Lapidus plate was applied and a staple applied for compression, after which 4 screws, the first two were locking screws, which were proximal was a 3.0 x 18 mm and then a 3.0 x 16 mm. There was a distal nonlocking 3.0 screw of 14 mm and then anti-drift screw that was from distal to proximal, medial to lateral extending from the first metatarsal into the intermediate cuneiform. This was all confirmed with intraoperative C-arm. Attention was then directed to the dorsal aspect of the first metatarsophalangeal joint where a 4 cm longitudinal linear incision was created. The incision was deepened in the same plane with great care to identify and retract all vital neurovascular structures. Only necessary blood vessels were cauterized as encountered. An incision was deepened down to the capsular tissue where once the capsulotomy was performed, the hypertrophic medial eminence of the first metatarsal head was reduced as well as the dorsal eminence. Next, a lateral release was performed with a small stab incision, the lateral cortex capsulotomy was performed. The conjoint tendon of the adductor hallucis was also released. This allowed for better alignment of the hallux, but did not reduce the complete hallux valgus deformity. It was then decided that an Kartik type procedure should be performed. Utilizing a power sagittal saw, a wedge of bone was resected from the medial portion of the proximal phalanx of the hallux. The base was medial and the lateral cortices was held intact. Once this gap was closed, a good reduction of the lateral deviation of the distal hallux was appreciated. The osteotomy was secured in a closed position. Utilizing a 28-gauge monofilament wire passed through 2 corporation pilot holes secured at the dorsal medial aspect of the osteotomy. Excellent bony apposition and fixation was appreciated at this time. The wound was flushed with copious amounts of normal saline. Closure was performed. Deep closure was performed with 3-0 Vicryl, superficial with 4-0 Vicryl, skin closure with 4-0 Prolene in a horizontal mattress type stitch. Attention was then directed to the dorsal aspect of the left second toe and metatarsal where a 3 cm longitudinal linear incision was created overlying the metatarsophalangeal joint. The incision was deepened down to the capsular tissue and a longitudinal capsulotomy was performed just medial to the extensor digitorum longus tendon. Tissue was then reflected exposing the hypertrophic head of the left second metatarsal. Osteophytes were identified. There was a central disruption to the articular cartilage at the dorsal aspect of the second metatarsal head area. Next, a Andres osteotomy was performed. This allowed the capital fragment to translocate proximally and was fixated in its corrected position utilizing a 2.0 snap-off screw of 12 mm of length. Excellent bony apposition fixation was also appreciated at this time. Fenestration of the area devoid of articular cartilage was performed with a 0.045 K-wire. The osteophyte was sent for gross and microscopic evaluation. The wound was flushed with copious amounts of normal saline. The dorsal aspect of the second metatarsal was further contoured and smoothed with a power bur. The wound was then flushed once again and closure was performed. Deep closure was performed with 3-0 Vicryl, superficial closure with 4-0 Vicryl and skin closure with 4-0 Prolene in a horizontal mattress type stitch. Postoperative injection consisted of 11 mL of 0.5% Marcaine injected in a local infusion to the surgical sites. Postoperative injection also included 10 mg dexamethasone into the first intermetatarsal space. Postoperative dressing consisted of Betadine soaked Adaptic, sterile 4 x 4, sterile Kerlix all secured with Coban wrap. The patient tolerated the anesthesia and procedure well, was transported from the operating room to the recovery room with vital signs stable and vascular status intact to all digits of the left foot. Postoperative instructions were given to the patient as well as prescription for tramadol and Keflex. She is to follow up in my office in 10 days' period of time or sooner if necessary. Job ID: [id number] DocumentID: [id number] Dictated Date: 02/15/2021 14:30:18 Scale Tester Date: 02/15/2021 17:12:24 Dictated By: COLLETTE MALDONADO DPM
== END 2021-02-15 16:14 | disposition home or self-care (01) ==
LOC: SDC 08:07
PROVIDERS: ATTEND Podiatrist Foot & Ankle Surgery
DX: M20.12 Hallux valgus (acquired), left foot (principal); M20.32 Hallux varus (acquired), left foot; M20.42 Other hammer toe(s) (acquired), left foot; I10 Essential (primary) hypertension; K21.9 Gastro-esophageal reflux disease without esophagitis; D64.9 Anemia, unspecified; G43.909 Migraine, unspecified, not intractable, without status migrainosus; F41.9 Anxiety disorder, unspecified; F51.05 Insomnia due to other mental disorder; Z79.899 Other long term (current) drug therapy
CPT/HCPCS: 73620; 76000; 87081

== ENCOUNTER → 2022-03-07 | Outpatient (CLI) | payer MEDICARE, MEDICAID ==
[~2022-03-07] MED LIST changes: +CEPH500C PO; +CYCL10TA25 PO; -CYCL10TA9 PO; +TRAM1TAB7 PO
--- NOTE | 2022-03-07 12:09 | Diagnostic Imaging Report ---
Indication: Routine screening. Comparison is made with prior mammogram 12/25/2020 and 10/18/2019. 2-D and 3-D bilateral screening mammography was performed with CAD. Both breasts are heterogeneously dense, limiting the limiting sensitivity of mammography. There are benign parenchymal and vascular calcifications. No mass or malignant-appearing microcalcifications are seen. Axillae are unremarkable. IMPRESSION: No mammographic features suspicious for malignancy are identified. ACR BI-RADS Category 2: Benign findings. Result letter will be mailed to the patient. Note: At least 10% of breast cancer is not imaged by mammography. BI-RADS Category 2 Dictated by: Dictated on workstation # [id number]
== END ==
LOC: RAD 11:15
PROVIDERS: ATTEND Nurse Practitioner Family
DX: Z12.31 Encounter for screening mammogram for malignant neoplasm of breast (principal)
CPT/HCPCS: 77063; 77067

== ENCOUNTER 2022-03-31 05:32 | Outpatient (CLI) | payer MEDICARE, MEDICAID ==
[~2022-03-31] VITALS: Ht 152.4 cm; Wt 55.9 kg
[~2022-03-31 05:32] MED LIST changes: -ALPR0.25 PO
[2022-03-31] MEDS ORDERED: ALPR0.25 PO (09:52)
== END 2022-03-31 10:14 | disposition home or self-care (01) ==
LOC: PREOP 05:32
PROVIDERS: ATTEND Surgery
DX: Z01.818 Encounter for other preprocedural examination (principal)

== ENCOUNTER → 2022-03-31 | Outpatient (CLI) | payer MEDICARE, MEDICAID ==
[~2022-03-31] MED LIST changes: +ALPR0.25 PO
--- NOTE | 2022-03-31 08:28 | Diagnostic Imaging Report ---
PROCEDURE: US Gallbladder. TECHNIQUE: Multiple real-time grayscale images were obtained over the right upper quadrant in various projections. INDICATION: Epigastric pain for several months. Liver is normal in size at 14 cm. Portal vein is patent and shows normal direction of flow. No liver mass is identified. Gallbladder is without stones or sludge. There is no wall thickening or biliary duct dilatation. Pancreas is unremarkable. Aorta is nonaneurysmal. IVC is patent. Right kidney is without calculi or hydronephrosis. There is no ascites. IMPRESSION: Unremarkable gallbladder ultrasound. Dictated by: Dictated on workstation # [id number]
== END ==
LOC: RAD 07:28
PROVIDERS: ATTEND Surgery
DX: R10.13 Epigastric pain (principal)
CPT/HCPCS: 76705

== ENCOUNTER → 2022-04-07 | Outpatient (CLI) | payer MEDICARE, MEDICAID ==
[~2022-04-07] MED LIST changes: +ALPR0.25 PO; +CATHETER FLUSH 10 ML SYR IVP PRN; +DEXL30CA2 PO; +SUCR1TAB36 PO
--- NOTE | 2022-04-07 12:00 | Diagnostic Imaging Report ---
INDICATION: Epigastric pain. EXAMINATION: Hepatobiliary scan, 04/07/2022. FINDINGS: After uneventful administration of 5.48 mCi of technetium-99m Choletec intravenously, subsequent imaging was performed with prompt homogeneous uptake seen throughout the liver. Gallbladder and small bowel are seen within 60 minutes. Subsequent administration of Ensure administered at 60 minutes with continued imaging performed. Ejection fraction was calculated at 58%. IMPRESSION: 1. No obstructive process. 2. Normal ejection fraction. Dictated by: Dictated on workstation # [id number]
== END ==
LOC: CARD 09:15
PROVIDERS: ATTEND Surgery
DX: R10.13 Epigastric pain (principal)
CPT/HCPCS: 78227; A9537

== ENCOUNTER 2022-04-11 07:35 | Day surgery (SDC) | payer MEDICARE, MEDICAID ==
[~2022-04-11] VITALS: Ht 152.4 cm; Wt 55.9 kg
[~2022-04-11 07:35] MED LIST changes: -CATHETER FLUSH 10 ML SYR IVP PRN; -DEXL30CA2 PO; -SUCR1TAB36 PO
[2022-04-11] MEDS ORDERED: LACTATED RINGERS 1,000 ML IV STA (07:47)
[2022-04-11] MEDS ORDERED: HURRICAINE EXT TUBE (BENZOCAINE) XX PRN (08:00)
[2022-04-11 08:06] VITALS: BP 127/79
--- NOTE | 2022-04-11 08:25 | Progress Note-Pre Operative ---
Pre-Operative Progress Note Date of Available H&P: Mar 29, 2022 Date H&P Reviewed: Apr 11, 2022 Time H&P Reviewed: 08:23 History & Physical: H&P Reviewed, Patient Examed, No changes noted Pre-Operative Diagnosis: Upper abd pain JAJA HALEY DO Apr 11, 2022 08:25
[2022-04-11] MEDS ORDERED: MIDAZOLAM 2 MG/2 ML (VERSED) VIAL ONE (09:53)
[2022-04-11] MEDS ORDERED: proPOfol 200 MG/20 ML (DIPRIVAN) VIAL IV ONE (09:53)
[2022-04-11 10:05] VITALS: BP 113/52
[2022-04-11 10:10] VITALS: BP 117/58
--- NOTE | 2022-04-11 10:11 | Progress Note-Post Operative ---
Post-Operative Progess Note Surgeon (s)/Music Adapter (s) Surgeon JAJA HALEY DO Music Adapter: none Pre-Operative Diagnosis Upper abd pain Post-Operative Diagnosis Gastric Ulcers Gastritis Hiatal hernia Procedure & Operative Findings Date of Procedure 04/11/22 Procedure Performed/Findings EGD with bx PROCEDURE NOTE: After informed consent was obtained, the patient was brought to the endoscopy suite, placed in bed in left lateral decubitus position. She was administered IV sedation by the INSOLE TAPER who then monitored vitals the entire time, heart rate, blood pressure and pulse ox and the scope was inserted down the mouth through the esophagus into the stomach. On the way down, noted some mild esophagitis, took a picture, pushed into the stomach, pushed past the antrum into the duodenum. Duodenum looked good. The antrum looked moderately inflamed and saw two ulcers. Pulled back and did a biopsy of the antrum and then a biopsy of one of the ulcers. Next retroflexed the scope, saw a small 1cm hiatal hernia, took a picture of this and then pulled the scope into the GE junction. Took another picture of the hiatal hernia and then did a biopsy of the GE junction. Pushed the scope back into the stomach, suctioned all the air out of the stomach. At this point pulled the scope up the esophagus and out the mouth. The patient tolerated the procedure, and she recovered in endoscopy suite. Anesthesia Type IV sedation by INSOLE TAPER Estimated Blood Loss Estimated blood loss (mL): scant Specimens/Packing Specimens Removed antral bx gastric ulcer bx body of stomach bx GE jxn bx JAJA HALEY DO Apr 11, 2022 10:11
[2022-04-11] MEDS ORDERED: SUCR1TAB36 PO (10:13)
[2022-04-11] MEDS ORDERED: DEXL30CA2 PO (10:13)
--- NOTE | 2022-04-11 10:14 | Endoscopy Discharge Instruct ---
Endo Procedure/Findings Findings 1.: Gastritis 2.: Gastric Ulcer 3.: Hiatal Hernia Discharge Instructions - Activity: You might feel a little sleepy until tomorrow. This is due to the medicine you received to relax you. Until tomorrow, you should: NOT drive a car, operate machinery or power tools. NOT drink any alcoholic beverages. NOT make any important decisions or sign importortant papers. Do not return to work until tomorrow, unless otherwise instructed. Resume previous activities tomorrow. Diet: Start by taking liquids. If you tolerate liquids, advance to solid food. 1.: EGD in 6-8 weeks Notify Physician - If you experience excessive bleeding, unusual abdominal pain, fever, or chest pain, contact your doctor immediately. JAJA HALEY DO Apr 11, 2022 10:14
[2022-04-11 10:15] VITALS: BP 102/54
[2022-04-11 10:50] VITALS: BP 142/84
--- NOTE | 2022-04-11 12:22 | Anesthesia-General Post-Op ---
MAC Patient Condition Mental Status/LOC: Same as Preop Cardiovascular: Satisfactory Nausea/Vomiting: Absent Respiratory: Satisfactory Pain: Controlled Complications: Absent Post Op Complications Complications None Follow Up Care/Instructions Patient Instructions None needed. Anesthesiology Discharge Order Discharge Order Patient is doing well, no complaints, stable vital signs, no apparent adverse anesthesia problems. No complications reported per nursing. SCOTT LECHUGA CRNA Apr 11, 2022 12:22
== END 2022-04-11 10:50 | disposition home or self-care (01) ==
LOC: ENDO 07:35
PROVIDERS: ATTEND Surgery
DX: K29.00 Acute gastritis without bleeding (principal); K29.50 Unspecified chronic gastritis without bleeding; K44.9 Diaphragmatic hernia without obstruction or gangrene; K20.90 Esophagitis, unspecified without bleeding; K59.09 Other constipation; Z88.5 Allergy status to narcotic agent; F17.210 Nicotine dependence, cigarettes, uncomplicated
CPT/HCPCS: 88305

== ENCOUNTER 2022-08-17 10:25 | Emergency (ER) | payer MEDICARE, MEDICAID ==
[~2022-08-17] VITALS: Ht 152 cm; Wt 53.5 kg
[~2022-08-17 10:25] MED LIST changes: +DEXL30CA2 PO; +SUCR1TAB36 PO
[2022-08-17] MEDS ORDERED: ONDANSETRON 4 MG/2 ML (SDV) Z0FRAN IVP ONE (11:15)
[2022-08-17] MEDS ORDERED: NS IV 1000 ML 1,000 ML IV SCH (11:15)
--- NOTE | 2022-08-17 11:17 | ED Headache ---
General Chief Complaint: Head/Cervical Problems Stated Complaint: HEADACHE | SOB | DIZZINESS Nursing Triage Note: PT PRESENTS TO ED VIA POV FROM HOME WITH COMPLAINTS OF SOB AND LIGHTHEADEDNESS STARTING TODAY. PT REPORTS ESTRELLA FOR 2 DAYS, AND NAUSEA STARTING LAST NIGHT. PT REPORTS COUGH/COLD S/S LAST WEEK BUT NONE CURRENTLY. Source: patient Exam Limitations: no limitations History of Present Illness Date Seen by Provider: Aug 17, 2022 Time Seen by Provider: 10:57 Initial Comments 62-year-old female presents with complaints of headache, feeling off balance balance, nausea for the last 2 to 3 days. Patient states this is the worst headache of her life, and states it was sudden onset. Patient reports a cough last week but states that has subsided. Patient did cough when assessing lung sounds. Patient denies any fevers/chills. Denies chest pain. Patient reports shortness of breath during the dizzy episodes. Patient denies any abdominal pa in. Last bowel movement was yesterday. Patient currently takes amlodipine for high blood pressure, Protonix and sulcrafate for her hiatal hernia and gastric ulcer, topiramate, gabapentin which she is currently reducing the dose, and Xanax as needed. Allergies and Home Medications Allergies Coded Allergies: acetaminophen (Verified Allergy, Severe, N/V, BREATHING DIFFICULTIES, 02/06/20) codeine (Verified Allergy, Severe, N/V, BREATHING DIFFICULTIES, 02/06/20) oxycodone (Verified Allergy, Severe, N/V, BREATHING DIFFICULTIES, 02/06/20) Patient Home Medication List Home Medication List Reviewed: Yes Alprazolam (Xanax) 0.25 Mg Tablet, 0.25 MG PO PRN, (Reported) Entered as Reported by: DAVE KUMARI on 03/31/22 0952 Amlodipine Besylate (Amlodipine Besylate) 2.5 Mg Tablet, 2.5 MG PO DAILY, (Reported) Entered as Reported by: ALEKS BLOOM on 06/07/19 1637 Cholecalciferol (Vitamin D3) (Vitamin D3) 2,000 Unit Tablet, 2,000 UNIT PO DAILY, (Reported) Entered as Reported by: NABOR MCBRIDE on 10/02/19 0949 Cyanocobalamin (Cyanocobalamin Injection) 1,000 Mcg/Ml Inj, 1,000 MCG IM MONTHLY, (Reported) Entered as Reported by: NABOR MCBRIDE on 10/02/19 0949 Cyanocobalamin (Vitamin B-12) (Vitamin B12) 2,500 Mcg Tab.chew, 2,500 MCG PO DAILY, (Reported) Entered as Reported by: NABOR MCBRIDE on 10/02/19 0949 Cyclobenzaprine HCl (Cyclobenzaprine HCl) 10 Mg Tablet, 10 MG PO Q8H PRN for SPASMS Prescribed by: GALO EVERETT on 06/07/19 191 Dexlansoprazole (Dexilant) 30 Mg Suresh.bp, 30 MG PO BID Prescribed by: JAJA HALEY on 04/11/22 1013 Gabapentin (Gabapentin) 300 Mg Capsule, 300 MG PO HS, (Reported) Entered as Reported by: ALEKS BLOOM on 06/07/19 163 Ibuprofen (Ibuprofen) 800 Mg Tablet, 800 MG PO Q8H PRN for PAIN-MILD, (Reported) Entered as Reported by: ALEXEI MALLORY on 02/08/21 1454 Melatonin (Melatonin) 10 Mg Tablet, 10 MG PO HS, (Reported) Entered as Reported by: ALEXEI MALLORY on 02/08/21 1454 Ondansetron (Ondansetron Odt) 4 Mg Tab.rapdis, 4 MG SL Q4H PRN for NAUSEA/VOMITING Prescribed by: GALO EVERETT on 08/28/19 041 Pantoprazole Sodium (Protonix) 40 Mg Tablet.dr, 40 MG PO DAILY, (Reported) Entered as Reported by: ALEXEI MALLORY on 02/08/21 1454 Sucralfate (Carafate) 1 Gram Tablet, 1 GM PO ACHS Prescribed by: JAJA HALEY on 04/11/22 1013 Topiramate (Topiramate) 50 Mg Tablet, 50 MG PO HS, (Reported) Entered as Reported by: ALEKS BLOOM on 06/07/19 163 Review of Systems Review of Systems Constitutional: No chills; dizziness; No fever Eyes: No Symptoms Reported Ears, Nose, Mouth, Throat: no symptoms reported Respiratory: short of breath Cardiovascular: no symptoms reported Gastrointestinal: No abdominal pain; nausea Genitourinary: no symptoms reported Psychiatric/Neurological: Headache Past Zrrrrjn-Cpnmlg-Sjmetk Hx Patient Social History Tobacco Use?: Yes Tobacco type used: Cigarettes Smoking Status: Current Everyday Smoker Substance use?: No Alcohol Use?: Yes Alcohol Frequency: Once in a while Pt feels they are or have been: No Immunizations Up To Date PED Vaccines UTD: No First/Initial COVID19 Vaccinat: 10-31-20 Second COVID19 Vaccination John: 11-28-20 Third COVID19 Vaccination Date: 07-26-21 Seasonal Allergies Seasonal Allergies: Yes Past Medical History Surgery/Hospitalization HX: pmh: anxiety, stomach ulcer. Surgeries: Yes Orthopedic Respiratory: No Currently Using CPAP: No Currently Using BIPAP: No Cardiac: Yes Hypertension Neurological: No Headaches /Migraines, Seizure Disorder Reproductive Disorders: No BELT SANDER STONE History: Tubal Ligation, Menopausal Sexually Transmitted Disease: No HIV/AIDS: No Genitourinary: No Gastrointestinal: No Musculoskeletal: No Arthritis Endocrine: No HEENT: No Loss of Vision: Denies Hearing Impairment: Denies Cancer: No Psychosocial: Yes Anxiety Integumentary: No Blood Disorders: No Adverse Reaction/Blood Tranf: No Family Medical History No Pertinent Family Hx Physical Exam Vital Signs Vital Signs - First Documented 08/17/22 10:29 Temp 36.0 Pulse 74 Resp 18 B/P (MAP) 156/96 (116) Pulse Ox 97 Capillary Refill : Less Than 3 Seconds Height, Weight, BMI Height: 5'2.00" Weight: 130lbs. oz. 58.462597be; 23.00 BMI Method:Estimated General Appearance: WD/WN, no apparent distress HEENT: PERRL/EOMI (dizziness with lateral eye movement, but no nystagmus), normal ENT inspection, TMs normal, pharynx normal Neck: supple, normal inspection Cardiovascular: regular rate, rhythm, no edema, no gallop, no JVD, no murmur Respiratory: lungs clear, normal breath sounds, no respiratory distress, no accessory muscle use Extremities: normal range of motion, normal inspection Psychiatric: oriented x 3 Crainal Nerves: normal hearing, normal speech, PERRL Motor/Sensory: no motor deficit, no sensory deficit Skin: normal color, warm/dry Progress/Results/Core Measures Results/Orders Lab Results Laboratory Tests Test 08/17/22 10:33 08/17/22 11:13 08/17/22 11:21 Range/Units White Blood Count 6.1 4.3-11.0 10^3/uL Red Blood Count 4.29 3.80-5.11 10^6/uL Hemoglobin 13.4 11.5-16.0 g/dL Hematocrit 40 35-52 % Mean Corpuscular Volume 94 80-99 fL Mean Corpuscular Hemoglobin 31 25-34 pg Mean Corpuscular Hemoglobin Concent 33 32-36 g/dL Red Cell Distribution Width 11.9 10.0-14.5 % Platelet Count 388 130-400 10^3/uL Mean Platelet Volume 10.4 9.0-12.2 fL Immature Granulocyte % (Auto) 1 % Neutrophils (%) (Auto) 60 42-75 % Lymphocytes (%) (Auto) 30 12-44 % Monocytes (%) (Auto) 7 0-12 % Eosinophils (%) (Auto) 2 0-10 % Basophils (%) (Auto) 1 0-10 % Neutrophils # (Auto) 3.7 1.8-7.8 10^3/uL Lymphocytes # (Auto) 1.8 1.0-4.0 10^3/uL Monocytes # (Auto) 0.4 0.0-1.0 10^3/uL Eosinophils # (Auto) 0.1 0.0-0.3 10^3/uL Basophils # (Auto) 0.0 0.0-0.1 10^3/uL Immature Granulocyte # (Auto) 0.0 0.0-0.1 10^3/uL Sodium Level 140 135-145 MMOL/L Potassium Level 3.6 3.6-5.0 MMOL/L Chloride Level 109 H 98-107 MMOL/L Carbon Dioxide Level 22 21-32 MMOL/L Anion Gap 9 5-14 MMOL/L Blood Urea Nitrogen 10 7-18 MG/DL Creatinine 0.69 0.60-1.30 MG/DL Estimat Glomerular Filtration Rate 98 BUN/Creatinine Ratio 14 Glucose Level 103 70-105 MG/DL Calcium Level 9.1 8.5-10.1 MG/DL Corrected Calcium 8.9 8.5-10.1 MG/DL Total Bilirubin 0.6 0.1-1.0 MG/DL Aspartate Amino Transf (AST/SGOT) 20 5-34 U/L Alanine Aminotransferase (ALT/SGPT) 16 0-55 U/L Alkaline Phosphatase 55 40-136 U/L Total Protein 6.7 6.4-8.2 GM/DL Albumin 4.3 3.2-4.5 GM/DL Serum Alcohol < 10 <10 MG/DL Urine Color YELLOW Urine Clarity CLEAR Urine pH 7.5 5-9 Urine Specific [place] 1.010 L 1.016-1.022 Urine Protein NEGATIVE NEGATIVE Urine Glucose (UA) NEGATIVE NEGATIVE Urine Ketones NEGATIVE NEGATIVE Urine Nitrite NEGATIVE NEGATIVE Urine Bilirubin NEGATIVE NEGATIVE Urine Urobilinogen 0.2 < = 1.0 MG/DL Urine Leukocyte Esterase NEGATIVE NEGATIVE Urine RBC (Auto) NEGATIVE NEGATIVE Urine RBC NONE /HPF Urine WBC RARE /HPF Urine Squamous Epithelial Cells RARE /HPF Urine Crystals NONE /LPF Urine Bacteria NEGATIVE /HPF Urine Casts NONE /LPF Urine Mucus NEGATIVE /LPF Urine Culture Indicated NO Urine Opiates Screen NEGATIVE NEGATIVE Urine Oxycodone Screen NEGATIVE NEGATIVE Urine Methadone Screen NEGATIVE NEGATIVE Urine Propoxyphene Screen NEGATIVE NEGATIVE Urine Barbiturates Screen NEGATIVE NEGATIVE Ur Tricyclic Antidepressants Screen NEGATIVE NEGATIVE Urine Phencyclidine Screen NEGATIVE NEGATIVE Urine Amphetamines Screen NEGATIVE NEGATIVE Urine Methamphetamines Screen NEGATIVE NEGATIVE Urine Benzodiazepines Screen NEGATIVE NEGATIVE Urine Cocaine Screen NEGATIVE NEGATIVE Urine Cannabinoids Screen NEGATIVE NEGATIVE Influenza Type A (RT-PCR) Not Detected Not Detecte Influenza Type B (RT-PCR) Not Detected Not Detecte SARS-CoV-2 RNA (RT-PCR) Not Detected Not Detecte My Orders Orders - FANNY CARTER APRN Ct Head Wo (08/17/22 11:05) Ed Iv/Invasive Line Start (08/17/22 11:05) Alcohol (08/17/22 11:05) Cbc With Automated Diff (08/17/22 11:05) Comprehensive Metabolic Panel (08/17/22 11:05) Drug Screen Stat (Urine) (08/17/22 11:05) Ed Iv/Invasive Line Start (08/17/22 11:05) Ns Iv 1000 Ml (Sodium Chloride 0.9%) (08/17/22 11:15) Urinalysis (08/17/22 11:05) Covid 19 Inhouse Test (08/17/22 11:05) Influenza A And B By Pcr (08/17/22 11:05) Ondansetron Injection (Zofran Injectio (08/17/22 11:15) Ketorolac Injection (Toradol Injection) (08/17/22 12:30) Diphenhydramine Injection (Benadryl Inje (08/17/22 12:30) Medications Given in ED Current Medications Medications Dose Ordered Sig/Kate Route Start Time Stop Time Status Last Admin Dose Admin Diphenhydramine HCl 25 mg ONCE ONCE IVP 08/17/22 12:30 08/17/22 12:31 DC 08/17/22 12:52 25 MG Ketorolac Tromethamine 15 mg ONCE ONCE IVP 08/17/22 12:30 08/17/22 12:31 DC 08/17/22 12:52 15 MG Ondansetron HCl 4 mg ONCE ONCE IVP 08/17/22 11:15 08/17/22 11:16 DC 08/17/22 11:17 4 MG Vital Signs/I&O 08/17/22 10:29 Temp 36.0 Pulse 74 Resp 18 B/P (MAP) 156/96 (116) Pulse Ox 97 Blood Pressure Mean: 116 Progress Progress Note #1: Time: 11:05 Progress Note Patient seen and evaluated. CBC, CMP, urinalysis, UDS, alcohol level, and CT head ordered for concerns of feeling off balance and headache. Progress Note #2: Time: 12:20 Progress Note Lab results and CT results discussed with patient. No concern for acute findings. Medication ordered for headache at this time. Progress Note #3: Time: 13:25 Progress Note Patient reports she is feeling better and is comfortable going home. Discussed return precautions with patient. Form patient to follow-up with primary care provider. Diagnostic Imaging Diagonstic Imaging: CT Plain Films/CT/US/NM/MRI: head Comments Date of Exam:08/17/22 CT HEAD WO PROCEDURE: CT head without contrast. TECHNIQUE: Multiple contiguous axial images were obtained through the brain without the use of intravenous contrast. Auto Exposure Controls were utilized during the CT exam to meet ALARA standards for radiation dose reduction. INDICATION: Headache and dizziness. Correlation is made with prior head CT from 02/06/2020. FINDINGS: The ventricles and sulci are stable in appearance. No sulcal effacement or midline shift is identified. No acute intra-axial or extra-axial hemorrhage is detected. Cisterns are patent. Visualized paranasal sinuses are clear. IMPRESSION: No acute intracranial process is detected. Dictated on workstation # [id number] Dict: 08/17/22 1202 Trans: 08/17/22 1205 [id number] Interpreted by: ERLIN LOFTON MD Electronically signed by: Departure Impression Primary Impression: Headache Disposition: 01 HOME, SELF-CARE Condition: Stable Departure-Patient Inst. Decision time for Depature: 13:26 Referrals: AQUILINO BRUCE MD (PCP/Family) Primary Care Physician Patient Instructions: Headache, Adult (DC) Add. Discharge Instructions: As discussed, your labs and CT scan were normal today. No concern for any acute findings. Follow-up with primary care provider. Return for any new or concerning symptoms. All discharge instructions reviewed with patient and/or family. Voiced understanding. FANNY CARTER APRN Aug 17, 2022 11:17
[2022-08-17 11:18] LABS: BASOPHILS % (AUTO) 1 % (0-10); EOSINOPHILS # (AUTO) 0.1 10^3/uL (0.0-0.3); EOSINOPHILS % (AUTO) 2 % (0-10); HEMATOCRIT 40 % (35-52); HEMOGLOBIN 13.4 g/dL (11.5-16.0); LYMPHOCYTES # (AUTO) 1.8 10^3/uL (1.0-4.0); LYMPHOCYTES % (AUTO) 30 % (12-44); MEAN CORPUSCULAR HEMOGLOBIN 31 pg (25-34); MEAN CORPUSCULAR HGB CONC 33 g/dL (32-36); MEAN CORPUSCULAR VOLUME 94 fL (80-99); MEAN PLATELET VOLUME 10.4 fL (9.0-12.2); MONOCYTES # (AUTO) 0.4 10^3/uL (0.0-1.0); MONOCYTES % (AUTO) 7 % (0-12); NEUTROPHILS # (AUTO) 3.7 10^3/uL (1.8-7.8); NEUTROPHILS % (AUTO) 60 % (42-75); PLATELET COUNT 388 10^3/uL (130-400); WHITE BLOOD COUNT 6.1 10^3/uL (4.3-11.0)
[2022-08-17 11:22] LABS: BILIRUBIN,URINE NEGATIVE (NEGATIVE); CLARITY,URINE CLEAR; COLOR,URINE YELLOW; GLUCOSE, URINE (UA) NEGATIVE (NEGATIVE); KETONES,URINE NEGATIVE (NEGATIVE); LEUKOCYTE ESTERASE ,URINE NEGATIVE (NEGATIVE); NITRITE,URINE NEGATIVE (NEGATIVE); PH,URINE 7.5 (5-9); PROTEIN,URINE NEGATIVE (NEGATIVE)
[2022-08-17 11:28] LABS: ALBUMIN 4.3 GM/DL (3.2-4.5); CHLORIDE 109 MMOL/L (98-107); POTASSIUM 3.6 MMOL/L (3.6-5.0); SODIUM 140 MMOL/L (135-145)
[2022-08-17 11:29] LABS: BACTERIA,URINE NEGATIVE /HPF; SQUAMOUS EPITHELIAL CELL,UR RARE /HPF; WBC,URINE RARE /HPF
[2022-08-17 11:30] LABS: CALCIUM 9.1 MG/DL (8.5-10.1)
[2022-08-17 11:31] LABS: GLUCOSE 103 MG/DL (70-105); TOTAL PROTEIN 6.7 GM/DL (6.4-8.2)
[2022-08-17 11:32] LABS: CARBON DIOXIDE 22 MMOL/L (21-32)
[2022-08-17 11:33] LABS: BILIRUBIN,TOTAL 0.6 MG/DL (0.1-1.0)
[2022-08-17 11:34] LABS: ALKALINE PHOSPHATASE 55 U/L (40-136); CREATININE SERUM 0.69 MG/DL (0.60-1.30); GFR ESTIMATED 98
[2022-08-17 11:34] LABS: AMPHETAMINE SCREEN, URINE NEGATIVE (NEGATIVE); BARBITURATE SCREEN URINE NEGATIVE (NEGATIVE); BENZODIAZEPINES SCREEN URINE NEGATIVE (NEGATIVE); CANNABINOID SCREEN, URINE NEGATIVE (NEGATIVE); COCAINE SCREEN URINE NEGATIVE (NEGATIVE); METHADONE STAT NEGATIVE (NEGATIVE); OPIATE SCREEN URINE NEGATIVE (NEGATIVE); OXYCODONE STAT NEGATIVE (NEGATIVE); PROPOXYPHENE STAT NEGATIVE (NEGATIVE); TRICYCLIC ANTIDEPRESSANTS SCRE NEGATIVE (NEGATIVE)
[2022-08-17 11:36] LABS: BUN/CREATININE RATIO 14
[2022-08-17 11:37] LABS: ALANINE AMINOTRANSFERASE 16 U/L (0-55)
--- NOTE | 2022-08-17 12:05 | Diagnostic Imaging Report ---
PROCEDURE: CT head without contrast. TECHNIQUE: Multiple contiguous axial images were obtained through the brain without the use of intravenous contrast. Auto Exposure Controls were utilized during the CT exam to meet ALARA standards for radiation dose reduction. INDICATION: Headache and dizziness. Correlation is made with prior head CT from 02/06/2020. FINDINGS: The ventricles and sulci are stable in appearance. No sulcal effacement or midline shift is identified. No acute intra-axial or extra-axial hemorrhage is detected. Cisterns are patent. Visualized paranasal sinuses are clear. IMPRESSION: No acute intracranial process is detected. Dictated by: Dictated on workstation # [id number]
[2022-08-17] MEDS ORDERED: diphenhydrAMINE 50 MG/ML INJ (BENADRYL) IVP ONE (12:30)
[2022-08-17] MEDS ORDERED: KETOROLAC 15 MG/ML VIAL IVP ONE (12:30)
[2022-08-17 13:36] VITALS: BP 128/72
== END 2022-08-17 13:36 | disposition home or self-care (01) ==
LOC: EDUNIT# 10:25 → ER 10:27
DX: R51.9 Headache, unspecified (principal); I10 Essential (primary) hypertension; K25.9 Gastric ulcer, unspecified as acute or chronic, without hemorrhage or perforation; F17.210 Nicotine dependence, cigarettes, uncomplicated; Z20.822 Contact with and (suspected) exposure to COVID-19; Z79.899 Other long term (current) drug therapy
CPT/HCPCS: 70450; 80053; 80306; 81000; 85025; 87636; 99283; G0480; 36415; 80320

== ENCOUNTER 2022-11-07 05:31 | Outpatient (CLI) | payer MEDICARE, MEDICAID ==
[~2022-11-07] VITALS: Ht 152.4 cm; Wt 50.0 kg
[2022-11-07] MEDS ORDERED: DULO30CA3 PO (12:07)
== END 2022-11-07 12:25 | disposition home or self-care (01) ==
LOC: PREOP 05:31
PROVIDERS: ATTEND Podiatrist Foot & Ankle Surgery
DX: Z01.818 Encounter for other preprocedural examination (principal)

== ENCOUNTER → 2022-11-08 | Outpatient (CLI) | payer MEDICARE, MEDICAID ==
[~2022-11-08] MED LIST changes: +DULO30CA3 PO
== END ==
LOC: CARD 11:58
PROVIDERS: ATTEND Internal Medicine Cardiovascular Disease
DX: I10 Essential (primary) hypertension (principal)
CPT/HCPCS: 93306

== ENCOUNTER → 2022-11-11 | Outpatient (CLI) | payer MEDICARE, MEDICAID ==
[~2022-11-11] MED LIST changes: +REGADENOSON 0.4 MG/5 ML SYR (LEXISCAN) IV ONE; +[UNRECOGNIZED DRUG - CODE] PO
[2022-11-11] MEDS: CATHETER FLUSH 10 ML SYR IVP PRN ×2 (08:22→09:25)
[2022-11-11 09:05] VITALS: BP 120/87
--- NOTE | 2022-11-11 16:42 | STRESS TEST ---
DATE OF SERVICE: 11/11/2022 RESTING AND POST REGADENOSON TECHNETIUM-99M TETROFOSMIN SPECT CT IMAGING ORDERING PHYSICIAN: Mikaela Courtney APRN PRIMARY PHYSICIAN: Dr. Peters. CLINICAL DIAGNOSIS: Abnormal electrocardiogram. Baseline images were carried out after injection of 9.78 mCi of technetium-99m tetrofosmin. This was followed by 0.4 mg of regadenoson and 28.9 mCi of technetium-99m tetrofosmin for stress imaging. Electrocardiogram showed sinus rhythm with incomplete right bundle branch block and nonspecific T-wave abnormality in the anterolateral leads. The electrocardiogram did not change significantly with the regadenoson infusion. The patient tolerated the procedure well. Review of images at rest and following stress indicate some diaphragmatic attenuation of the inferior wall, but there does not appear to be distinct evidence of significant myocardial ischemia. Gated images show normal global left ventricular systolic function with normal regional wall motion. Left ventricular ejection fraction is calculated to be 68%. CONCLUSIONS: 1. No evidence of significant myocardial ischemia or infarction. 2. Normal regional wall motion. 3. Normal global left ventricular systolic function with a calculated ejection fraction 68%. Job ID: [id number] DocumentID: [id number] Dictated Date: 11/11/2022 14:42:05 Bonsai Tender Date: 11/11/2022 16:40:00 Dictated By: CONSTANTINE ALVARADO MD; ELOISA; FACP; FACC;
== END ==
LOC: CARD 07:45
PROVIDERS: ATTEND Internal Medicine Cardiovascular Disease
DX: R94.31 Abnormal electrocardiogram [ECG] [EKG] (principal)
CPT/HCPCS: 78452; 93017; A9502

== ENCOUNTER 2022-11-14 08:01 | Day surgery (SDC) | payer MEDICARE, MEDICAID ==
[2022-11-14] VITALS (11 sets, daily range): BP systolic 89–116; BP diastolic 41–63
[~2022-11-14] VITALS: Ht 152 cm; Wt 50.0 kg
[~2022-11-14 08:01] MED LIST changes: -REGADENOSON 0.4 MG/5 ML SYR (LEXISCAN) IV ONE; -[UNRECOGNIZED DRUG - CODE] PO
[2022-11-14] MEDS ORDERED: ceFAZolin INJECTION 1,000 MG in NS (IVPB) 50 ML IV ONE (08:15)
[2022-11-14] MEDS ORDERED: LACTATED RINGERS 1,000 ML IV PRN (08:15)
[2022-11-14] MEDS ORDERED: FAMOTIDINE 20MG/2ML IV (PEPCID) IVP ONE (08:30)
[2022-11-14] MEDS ORDERED: ONDANSETRON 4 MG/2 ML (SDV) Z0FRAN IVP ONE (08:30)
[2022-11-14] MEDS ORDERED: fentaNYL INJ 100 MCG/2 ML AMP ONE ×3 (09:49→13:18)
[2022-11-14] MEDS ORDERED: LIDOCAINE 1% INJ 20 ML VIAL ONE (09:53)
[2022-11-14] MEDS ORDERED: BUPIVACAINE 0.5% 30 ML (SENSORCAINE) VIAL ONE (09:53)
--- NOTE | 2022-11-14 10:01 | Progress Note-Pre Operative ---
Pre-Operative Progress Note Date of Available H&P: Nov 14, 2022 Date H&P Reviewed: Nov 14, 2022 Time H&P Reviewed: 10:01 Pre-Operative Diagnosis: Hallux Varus, Hypertrophic 2nd metatarsal, right foot. SHIRAZ MALDONADO DPM Nov 14, 2022 10:01
[2022-11-14] MEDS ORDERED: BUPIVACAINE 0.5% 30 ML (SENSORCAINE) VIAL INJ ONE (10:42)
[2022-11-14] MEDS ORDERED: LIDOCAINE 1% INJ 20 ML VIAL INJ ONE (10:43)
[2022-11-14] MEDS ORDERED: ONDANSETRON 4 MG/2 ML (SDV) Z0FRAN ONE (11:47)
[2022-11-14] MEDS ORDERED: KETOROLAC 30 MG/ML VIAL ONE (11:47)
[2022-11-14] MEDS ORDERED: SEVOFLURANE (ULTANE) 15 ML INHAL SOLN ONE (11:47)
[2022-11-14] MEDS ORDERED: proPOfol 200 MG/20 ML (DIPRIVAN) VIAL IV ONE (11:47)
[2022-11-14] MEDS ORDERED: HYDROcodone/APAP 5 MG/325 MG (LORTAB) TAB PO PRN (12:15)
[2022-11-14] MEDS ORDERED: LACTATED RINGERS 1,000 ML IV SCH (12:15)
--- NOTE | 2022-11-14 12:15 | Progress Note-Post Operative ---
Post-Operative Progess Note Surgeon (s)/Plate Printer (s) Surgeon SHIRAZ MALDONADO DPM Plate Printer: none Pre-Operative Diagnosis Hallux Varus, Hypertrophic 2nd metatarsal, right foot. Post-Operative Diagnosis Same Procedure & Operative Findings Date of Procedure 11/14/22 Procedure Performed/Findings Lapidus-Kartik bunionectomy, right Anesthesia Type General Estimated Blood Loss Estimated blood loss (mL): Minimal Specimens/Packing Specimens Removed none SHIRAZ MALDONADO DPM Nov 14, 2022 12:15
[2022-11-14] MEDS ORDERED: [UNRECOGNIZED DRUG - CODE] PO (12:21)
[2022-11-14] MEDS ORDERED: CEPH500C PO (12:21)
--- NOTE | 2022-11-14 12:28 | Anesthesia-General Post-Op ---
General Patient Condition Mental Status/LOC: Same as Preop Cardiovascular: Satisfactory Nausea/Vomiting: Absent Respiratory: Satisfactory Pain: Controlled Complications: Absent Post Op Complications Complications None Follow Up Care/Instructions Patient Instructions None needed. Anesthesia/Patient Condition Patient Condition Patient is doing well, no complaints, stable vital signs, no apparent adverse anesthesia problems. No complications reported per nursing. CARINA SCHULER CRNA Nov 14, 2022 12:28
[2022-11-14] MEDS ORDERED: PROMETHAZINE INJ 25 MG/ML (PHENERGAN) AMP IVP ONE (12:30)
[2022-11-14] MEDS ORDERED: fentaNYL INJ 100 MCG/2 ML AMP IVP ONE (12:30)
[2022-11-14] MEDS ORDERED: ONDANSETRON 4 MG/2 ML (SDV) Z0FRAN IVP PRN (12:30)
--- NOTE | 2022-11-14 14:07 | Physical Therapy Ortho Eval ---
PT Orthopedic Evaluation Type of Surgery Prior Level of Function Current Living Status: Alone Locomotion (Upon Admit): Independent Established Durable Medical Eq: Crutches Subjective Subjective Patient lying supine in bed upon PT arrival, agreeable to treatment. Rates right foot pain at 3/10 currently Entry Into Home: Stairs With Railing Steps Into Home: 2 Steps Inside Home: 0 Motor Control Motor Control: Motor Control WNL ROM ROM: WFL, except focal deficit Strength Strength: WFL Transfer SCALE: Activities may be completed with or without assistive devices. 8-Idmqbpzslg-txoewqu completes the activity by him/herself with no assistance from a helper. 5-Set-up or Clean-up Assistance-helper sets up or cleans up; patient completes activity. [place] assists only prior to or following the activity. 4-Supervision or Touching Assistance-helper provides verbal cues and/or touching/steadying and/or contact guard assistance as patient completes activity. Assistance may be provided throughout the activity or intermittently. 3-Partial/Moderate Assistance-helper does LESS THAN HALF the effort. [place] lifts, holds or supports trunk or limbs, but provides less than half the effort. 2-Substantial/Maximal Assistance-helper does MORE THAN HALF the effort. [place] lifts or holds trunk or limbs and provides more than half the effort. 5-Wlntbaxjv-kbbjgj does ALL the effort. Patient does none of the effort to complete the activity. Or, the assistance of 2 or more helpers is required for the patient to complete the activity. If activity was not attempted, code reason: 7-Patient Refused. 9-Not Applicable-not attempted and the patient did not perform the activity before the current illness, exacerbation or injury. 10-Not Attempted due to Environmental Limitations-(lack of equipment, weather restraints, etc.). 88-Not Attempted due to Medical Conditions or Safety Concerns. Gait Gait Assistive Device: Crutches Right Lower Extremity: Right Weight Bearing Status RLE: Non Weight Bearing Left Lower Extremity: Left Weight Bearing Status LLE: Full Weight Bearing Gait (QC): 4 Distance: 40 feet Stairs #of Steps: 2 Walking Assistive Device: Crutches Treatment Rendered Treatment: Gait Train, Step Train Assessment/Goals Goal Time Frame: 1 Visit Safe Ambulation: Yes Plan Treatment Plan: Discharge Time Time In: 1346 Time Out: 1356 Total Billed Treatment Time: 10 Billed Treatment Time Visit, TEE MILLIGAN PT Nov 14, 2022 14:07
--- NOTE | 2022-11-14 17:21 | Diagnostic Imaging Report ---
INDICATION: Right foot surgery AP and lateral views of the right foot reveal postoperative findings of 1st proximal phalangeal osteotomy and arthrodesis across the 1st tarsometatarsal joint. There is mild sclerosis at the 2nd through 5th tarsometatarsal joints. Oblique images were not obtained. IMPRESSION: Arthrodesis and osteotomy involving the 1st ray of the right foot. There is no evidence of acute abnormality or complication. Dictated by: Dictated on workstation # [id number]
--- NOTE | 2022-11-14 20:52 | OPERATIVE REPORT ---
DATE OF SERVICE: 11/14/2022 SURGEON: Collette Maldonado DPM PREOPERATIVE DIAGNOSIS: Hallux abductovalgus metatarsal primus varus, right. POSTOPERATIVE DIAGNOSIS: Hallux abductovalgus metatarsal primus varus, right. PROCEDURE: Modified Lap[place]us Kartik bunionectomy, right foot. WOUND CLASS: Clean. ANESTHESIA: General. HEMOSTASIS: Pneumatic thigh tourniquet at 250 mmHg. INDICATIONS: This 62-year-old female presents complaining of painful bunion of the right foot. Conservative therapy is met with unsatisfactory results and the patient is agreeable to surgical intervention after risks and complications were discussed at length. No guarantees were extended to the patient and she is willing to proceed. DESCRIPTION OF PROCEDURE: The patient was brought back to the operating table and placed in secure supine position. A general anesthetic was then induced. A pneumatic thigh tourniquet was placed on the right lower extremity over several layers of padding. Appropriate timeout was performed. The right foot was then prepped and draped in the most normal sterile manner. Preoperative injection of the local anesthetic was also induced with 1:1 mixture of 1% Xylocaine and 0.5% Marcaine including 10 mL of the mixture injected in a Jc block. The right foot was then elevated allowed to exsanguinate after which the tourniquet was inflated to 250 mmHg. Attention was then directed to the dorsal aspect of the right first metatarsal cuneiform joint where a dorsal medial incision was created overlying the medial cuneiform and extending to the distal diaphysis of the first metatarsal. The incision was deepened in the same plane with great care to identify and retract all vital neurovascular structures. Only necessary blood vessels were cauterized as encountered. The incision was deepened down to the capsular tissue of the first metatarsal cuneiform joint. Once this area was exposed, utilizing a [place] 28 cut guide, a 14 degree cut guide was utilized and confirmed with intraoperative C-arm. The cut guide was appropriately utilized resecting the base of the first metatarsal and distal aspect of the medial cuneiform. Once this was done, the arthrodesis site articular cartilage area was inspected and found to be completely devoid of any articular cartilage. Fenestration was also performed with a 1.5 mm drill. The first metatarsal was rotated and placed in contact with the medial cuneiform and temporary K-wire was driven from plantar distal to proximal dorsal. Intraoperative C-arm indicated appropriate reduction of the first intermetatarsal angle as well as appropriate coaptation of the arthrodesis site. Next, utilizing standard technique for the [place] 28 Lapidus plate, there was an interfrag screw, was 4.0 of 30 mm of length driven from dorsal distal to plantar proximal. The locking plate had 3.5 screws of 10, 12 and 16 mm of length. There was a nonlocking screw of 14 mm of length at the distal hole. Excellent bony apposition and fixation was appreciated this time and confirmed by intraoperative C-arm. The wound was flushed with copious amounts of normal saline. There was some lateral deviation remaining to the right hallux and an Kartik type osteotomy was then performed. With the Kartik procedure, there is subperiosteal dissection carried out after the incision was lengthened. The subperiosteal dissection allowed for a wedge of bone to be resected from the diaphysis of the proximal phalanx with the base, medial and the lateral cortices held intact. Two banquet pilot holes were created at the dorsal medial aspect of the osteotomy allowing for a 28-gauge monofilament wire to pass through these banquet pilot hole securing the osteotomy in a closed position. Excellent bony apposition and fixation was appreciated this time. Intraoperative C-arm indicated appropriate alignment of the first ray with coverage of the sesamoid on the AP view. There is excellent range of motion of the first metatarsophalangeal joint at this time. The wound was flushed with copious amounts of normal saline and closure was performed in layers. Deep closure was performed with 3-0 Vicryl, superficial with 4-0 Vicryl, skin closure with 4-0 Prolene in a horizontal mattress type stitch. Postoperative injection consisted of 15 mL of 0.5% Marcaine injected in a local infusion to the surgical site followed by 10 mg dexamethasone into the first intermetatarsal space area. The postoperative dressing consisted of Betadine-soaked Adaptic, sterile 4 x 4's, sterile Kerlix, all secured with a Coban wrap. The patient tolerated the anesthesia and procedure well and was transported from the operating room to the recovery area with vital signs stable and vascular status intact to all digits of the right foot. She is to be nonweightbearing on the right lower extremity. She was given a prescription for Keflex as well as tramadol. The patient is to follow up in my office in 10 days period of time or sooner if necessary. Job ID: [id number] DocumentID: [id number] Dictated Date: 11/14/2022 12:30:58 Protective Clothing Issuer Date: 11/14/2022 20:51:00 Dictated By: COLLETTE MALDONADO DPM
== END 2022-11-14 14:12 | disposition home or self-care (01) ==
LOC: SDC 08:01
PROVIDERS: ATTEND Podiatrist Foot & Ankle Surgery
DX: M20.11 Hallux valgus (acquired), right foot (principal); M21.171 Varus deformity, not elsewhere classified, right ankle; I11.9 Hypertensive heart disease without heart failure; E78.5 Hyperlipidemia, unspecified; R94.31 Abnormal electrocardiogram [ECG] [EKG]; E78.2 Mixed hyperlipidemia; R10.11 Right upper quadrant pain; E53.8 Deficiency of other specified B group vitamins; F17.210 Nicotine dependence, cigarettes, uncomplicated; Z79.899 Other long term (current) drug therapy
CPT/HCPCS: 28297; 73620; 87081; 97162; C1713 ×11

== ENCOUNTER → 2022-12-15 | Outpatient (CLI) | payer MEDICARE, MEDICAID ==
[~2022-12-15] MED LIST changes: +HOLD METFORMIN - RECEIVED CONTRAST 20 ML VIAL IV SCH; +IOHEXOL 350 MG/ML 100 ML (OMNIPAQUE 350) VIAL IV ONE; +NS 100 ML (IVPB) BAG IV ONE; +TOPI-241 PO; -TOPI50TA13 PO; +[UNRECOGNIZED DRUG - CODE] PO
[2022-12-15 10:48] LABS: CREATININE SERUM 0.73 MG/DL (0.60-1.30)
--- NOTE | 2022-12-15 11:22 | Diagnostic Imaging Report ---
PROCEDURE: CT abdomen and pelvis with contrast. TECHNIQUE: Multiple contiguous axial images were obtained through the abdomen and pelvis after administration of intravenous contrast. Auto Exposure Controls were utilized during the CT exam to meet ALARA standards for radiation dose reduction. All CT scans use one or more of the following dose optimizing techniques: automated exposure control, MA and/or KvP adjustment based on patient size and exam type or iterative reconstruction. INDICATION: Nausea and vomiting with right-sided abdominal pain. Comparison is made with prior CT from 02/12/2020. The lung bases are clear. The liver and gallbladder are unremarkable. No liver mass or biliary ductal dilatation is seen. The pancreas, spleen, adrenal glands and kidneys are unremarkable. No definite calculi or hydronephrosis is seen. Aorta shows some atherosclerotic changes but is nonaneurysmal. The small and large bowel loops are normal in caliber. There is no evidence of obstruction. There does appear to be diverticulosis of the sigmoid but no evidence of acute diverticulitis. There is no free fluid or fluid collection. The uterus and bladder are unremarkable. No inflammatory changes are seen. IMPRESSION: Uncomplicated diverticulosis. The study is otherwise unremarkable. No acute abnormality is detected. Dictated by: Dictated on workstation # [id number]
== END ==
LOC: RAD 11:45
PROVIDERS: ATTEND Nurse Practitioner Family
DX: K57.90 Diverticulosis of intestine, part unspecified, without perforation or abscess without bleeding (principal)
CPT/HCPCS: 36415; 74177; 82565; 84520

== ENCOUNTER → 2022-12-29 | Outpatient (CLI) | payer MEDICARE, MEDICAID ==
[~2022-12-29] MED LIST changes: -HOLD METFORMIN - RECEIVED CONTRAST 20 ML VIAL IV SCH; -IOHEXOL 350 MG/ML 100 ML (OMNIPAQUE 350) VIAL IV ONE; -NS 100 ML (IVPB) BAG IV ONE; +RT-ALBUTEROL SULF 2.5 MG/3 ML PRE-MIX VIAL INH ONE
== END ==
LOC: RT 10:45
PROVIDERS: ATTEND Family Medicine
DX: J44.9 Chronic obstructive pulmonary disease, unspecified (principal); Z87.891 Personal history of nicotine dependence
CPT/HCPCS: 94060; 94726; 94729

== ENCOUNTER → 2023-03-08 | Outpatient (CLI) | payer MEDICARE, MEDICAID ==
[~2023-03-08] MED LIST changes: -RT-ALBUTEROL SULF 2.5 MG/3 ML PRE-MIX VIAL INH ONE
--- NOTE | 2023-03-08 11:43 | Diagnostic Imaging Report ---
Indication: Routine screening Comparison is made with prior mammogram from 03/07/2022 and 12/25/2020. 2-D and 3-D bilateral screening mammography was performed with CAD. The current study was also evaluated with a Computer Aided Detection (CAD) system. Both breasts are heterogeneously dense, limiting the sensitivity of mammography. The parenchymal pattern is stable. No mass or malignant-appearing microcalcifications are seen. Axillae are unremarkable. IMPRESSION: BI-RADS Category 1 No mammographic features suspicious for malignancy are identified. ACR BI-RADS Category 1: Negative. Result letter will be mailed to the patient. Note: At least 10% of breast cancer is not imaged by mammography. Dictated by: Dictated on workstation # [id number]
== END ==
LOC: RAD 09:36
PROVIDERS: ATTEND Family Medicine
DX: Z12.31 Encounter for screening mammogram for malignant neoplasm of breast (principal)
CPT/HCPCS: 77063; 77067